=== PATIENT | male | born 1945 | race Hispanic/Latino ===

== ENCOUNTER 2017-02-13 17:09 | Inpatient (IN) | payer MEDICARE, BC ==
[2017-02-13 17:49] VITALS: BMI 39.4
[2017-02-13] MEDS ORDERED: Oxycodone/Acetaminophen 5/325 mg Tab PO PRN ×2 (22:15→22:16)
--- NOTE | 2017-02-13 22:43 | CP.PCM.HP ---
History of Present Illness - History of Present Illness History of Present Illness: Chief complaint: s/p abdominal surgery here for rehabilitation HPI: 71 years old male sent from here at the [facility] for Rehabilitation and continued treatment. he was initially dx with colon cancer and underwent partial Colectomy with colostomy in September 2016. he returned to [facility] for an elective colostomy reversal 01/30/17, surgeon Dr Martinez. LLQ abscess noted on CT Abd/Pelvis on 02/01. Exploratory lap, wash out and drainage of abscess done on 02/03. On 02/06 Some more Pelvic abscess wash out and surgery done. On 02/09 exploratory Lap with wash out and abdominal closure. patient is now here at [facility] for rehabilitation. He refers that the pain is relieved with the analgesics, but he feels very weak and cannot walk. PMH: Colon cancer; HTN; DM II; CAD: [place]; HLD; PSH: Partial colectomy; Colostomy; appendectomy, Lipoma excision Surgery time Line: 01/30 Ex -lap, take-down of splenic flexure, lysis of adhesions, partial colectomy, colostomy reversal. repair SB serosal tear x2,diverting loop colostomy, audrey of thrombosed hemorrhoid. 02/01 CT A/P LLQ abscess 02/01 IR 500cc purulent drained, drain left ; VAC placed 02/03 Ex Lap, washout and drainage, SBR, takedown of colorectal anastomosis with resection, TAC(left in discontinuity at distal ilium and rectum) 02/06 w/o, loop colosstomy takedown, splenic flexure takedown, splenic injury repair, SB anastomosis, pelvic abscess washout, colon resection,appendectomy, rectal stump repair, end colostomy, TAC 02/09 ex lap, washout, abd colosure c retention sutures 02/10 estubated. SH: No illegal drug use; No alcohol; Live with FH; Brother of heart attack at 59 Allergies: NKDA Present on Admission - Present on Admission Any Indicators Present on Admission: No History of DVT/PE: No History of Uncontrolled Diabetes: No Urinary Catheter: No Decubitus Ulcer Present: No Review of Systems - Constitutional Constitutional: Weakness. absent: Anorexia, Chills, Fatigue, Fever, Headache - EENT Eyes: Requires Corrective Lenses. absent: Diplopia, Floaters, Photophobia, Sees Flashes Ears: absent: Decreased Hearing, Ear Discharge, Tinnitus Nose/Mouth/Throat: absent: Epistaxis, Nasal Congestion, Nasal Discharge, Sinus Pain, Sinus Pressure - Cardiovascular Cardiovascular: Leg Edema. absent: Chest Pain, Dyspnea - Respiratory Respiratory: absent: Cough, Dyspnea, Wheezing - Gastrointestinal Gastrointestinal: absent: Abdominal Pain, Nausea, Vomiting Additional comments: Colostomy - Genitourinary Genitourinary: absent: Dysuria, Flank Pain, Hematuria, Urinary Frequency - Musculoskeletal Musculoskeletal: Muscle Weakness - Integumentary Integumentary: absent: Pruritus, Rash, Skin Ulcer, Sores - Neurological Neurological: Weakness. absent: Confusion, Dizziness, Focal Weakness, Paresthesias, Vertigo - Psychiatric Psychiatric: absent: Anxiety, Depression, Panic Attacks - Endocrine Endocrine: absent: Palpitations, Polydipsia, Polyphagia, Polyuria - Hematologic/Lymphatic Hematologic: absent: Easy Bleeding, Easy Bruising Meds Allergies/Adverse Reactions: Allergies Allergy/AdvReac Type Severity Reaction Status Date / Time No Known Allergies Allergy Verified 02/13/17 17:33 Physical Exam - Constitutional Appears: No Acute Distress - Head Exam Head Exam: ATRAUMATIC, NORMAL INSPECTION, NORMOCEPHALIC - Eye Exam Eye Exam: EOMI, Normal appearance Pupil Exam: NORMAL ACCOMODATION, PERRL - ENT Exam ENT Exam: Mucous Membranes Moist, Normal Exam, Normal External Ear Exam, Normal Oropharynx - Neck Exam Neck exam: Positive for: Full Rom, Normal Inspection. Negative for: Lymphadenopathy, Tenderness - Respiratory Exam Respiratory Exam: Clear to Auscultation Bilateral. absent: Rales, Rhonchi, Wheezes - Cardiovascular Exam Cardiovascular Exam: REGULAR RHYTHM, RRR, +S1, +S2. absent: Gallop, JVD - GI/Abdominal Exam Additional comments: Flat with Post surgical dressing at midline from epigastrium to pelvic region.+ vwe gavino sounds, post surgical tenderness, No erythema seen, minimal drainage from wound on dressing. - Rectal Exam Rectal Exam: Deferred - Extremities Exam Extremities exam: Negative for: calf tenderness Additional comments: 1+ edema at the left lower extremity and trace at the right lower extremity - Back Exam Back exam: NORMAL INSPECTION. absent: CVA tenderness (L), CVA tenderness (R) - Neurological Exam Neurological exam: Alert, CN II-XII Intact, Oriented x3, Reflexes Normal - Psychiatric Exam Psychiatric exam: Normal Affect, Normal Mood - Skin Skin Exam: Dry, Intact, Normal Color, Warm Results - Labs Labs: PND Assessment & Plan - Assessment and Plan (Free Text) Assessment: # Colon Cancer s/p partial colectomy and colostomy then colostomy reversal and diverting loop colostomy #. DM II #. CAD: #. HTN #. [place] Plan: 71 years old male sent from here at the [facility] unit for Rehabilitation and continued treatment. he was initially dx with colon cancer and underwent partial Colectomy with colostomy in September 2016. He returned to [facility] for an elective colostomy reversal 01/30/17, where because of LLQ abscess formation, the surgical intervention was prolonged by multiple Lap washouts and resections. He is now here for Rehabilitation. # Colon Cancer s/p partial colectomy and colostomy then colostomy reversal and diverting loop colostomy - Continue Daily dressing of surgical wound - Pain management with Percocet - Follow CBC - Surgical follow up in one week #. Post surgical Debility - Consult Dr Julio Cardiology Coordinator - OT/PT #. DM II - Diabetic diet - levemir - aspart insulin sliding scale according to accucheck - follow BMP #. CAD - lipitor - ASA in 3 weeks #. HTN - Metoprolol/lisinopril #. [place] - CPAP at nights - patient could use his own CPAP machine #. DVT prophylaxis with lovenox #. Code Status Full - Date & Time Date: 02/13/17 Time: 22:43
[2017-02-14] MEDS: Latanoprost 0.005% Opht SOUTION OU SCH ×2 (00:27→22:31)
[2017-02-14] MEDS: Insulin Lispro (humaLOG) 100 Units/ml Inj SC SCH ×5 (00:42→22:30)
[2017-02-14 08:48] LABS: BASO # 0.1 K/uL (0.0-0.2); BASO % 0.5 % (0.0-2.0); EOS # 0.1 K/uL (0.0-0.7); EOS % 0.9 % (0.0-4.0); HEMOGLOBIN 8.7 g/dL (12.0-18.0); LYMPH # 1.5 K/uL (1.0-4.3); LYMPH % 14.9 % (20.0-40.0); MEAN CORPUSCULAR HEMOGLOBIN 24.8 pg (27.0-31.0); MEAN CORPUSCULAR HGB CONC 32.6 g/dL (33.0-37.0); MEAN PLATELET VOLUME 9.2 fl (7.2-11.7); MONO # 0.7 K/uL (0.0-0.8); MONO % 6.5 % (0.0-10.0); NEUT # 7.8 K/uL (1.8-7.0); NEUT % 77.2 % (50.0-75.0); NRBC % 0.1 % (0.0-0.0); RBC 3.52 Mil/uL (4.40-5.90); RED CELL DISTRIBUTION WIDTH 16.7 % (11.5-14.5); WHITE BLOOD COUNT 10.2 K/uL (4.8-10.8)
[2017-02-14 08:52] LABS: ALB/GLOB RATIO 0.8 (1.0-2.1); ALBUMIN 2.5 g/dL (3.5-5.0); ALT/SGPT 50 U/L (21-72); AST/SGOT 58 U/L (17-59); BLOOD UREA NITROGEN 13 mg/dl (9-20); CALCIUM 8.8 mg/dL (8.4-10.2); GFR AFRICAN-AMERICAN > 60; GFR NON-AFRICAN AMERICAN > 60
[2017-02-14 09:02] LABS: INR 1.2 (0.9-1.2); PARTIAL THROMBOPLASTIN TIME 24.5 Seconds (25.6-37.1); PROTHROMBIN TIME 13.4 Seconds (9.8-13.1)
--- NOTE | 2017-02-14 12:02 | PSY.TMCNF ---
Nursing - Vital Signs Vital Signs (Last 8 hours): Vital Signs 02/14/17 02/14/17 02/14/17 08:08 08:40 08:41 Temperature 98.4 F Pulse Rate 22 L 67 Respiratory 67 H Rate Blood Pressure 154/64 H 154/64 H 154/64 H O2 Sat by Pulse 95 Oximetry 02/14/17 09:09 Temperature 98.4 F Pulse Rate 67 Respiratory 67 H Rate Blood Pressure 154/64 H O2 Sat by Pulse Oximetry Pain: 0 - Precautions: Precautions: Fall Prevention, Pressure Ulcer - Medications/Other Issues Comment: - Gets anxious at times - Consults Comment: Dr. GARCIA - Skin Incision Site: Mid Abdomen Dressing Status: Clean, Dry, Intact Incision: Magda Intact, Sutures Intact, Dehiscence, Draining Incision Line Treatment: Abdominal I/L with retention sutures. Cleansed with NSS , packed with Iodoform Gauze, covered with DSD - Wound Right Medial Ear Wound Type: Other Wound Stage: Suspected Deep Tissue Injury Wound Shape: Irregular Wound Edges: Attached Tunneling: No Undermining: No Wound Bed Greatest Portion: Black (Eschar) Wound Bed Lesser Portion: Black (Eschar) Periwound: Intact Wound Drainage Amount: None Wound Drainage Odor: None/Absent Wound General Appearance: Open to air, Clean/Dry Wound Dressing Status: Open to air Dressing Changed: No - Toileting Toileting: Dependent - Bladder Management Bladder Pattern: Normal Voiding Method: Urinal Bladder Management: Supervision - Bowel Management Bowel Pattern: Fecal Management System Comment: (+) Colostomy on LLQ, draining loose, watery brown stool Bowel Management: Dependent Frequency of Accidents: 0 - Transfers Transfers: Dependent - ADL's ADL's: Dependent - Pain Management Comments: Percocet PRN - Patient/Family Teaching Comments: Care post surgery, infection control, handwashing, rehab routines and safety precautions - Goals/Time Frame Comments: Per multidisciplinary care plan and goals Physical Therapy - Bed Mobility Bed Mobility: Moderate Assistance - Ambulation Level of Assistance: Moderate Assistance Distance (ft.): 8 - Stair Negotiation Stairs: Level of Assistance: Not Tested - Provider Therapist: Herbert License Number: [id number] Occupational Therapy - Arousal/Attention/Orientation Patient Orientation: Person, Place, Time, Appropriate to Age, Appropriate to Situation Nutrition - Current Diet Current Diet/ Supplement/ Feedings: Moderate consistent CHO 2 gram Na diet - Appetite Percent Meal Consumed: 50-74% - Comments Comments: Care post surgery, infection control, handwashing, rehab routines and safety precautions - Assessment/Goals/Time Frame Assessment/Goals/Time Frame: - Gets anxious at times - Provider Provider: Yesy Peres RD Case Management - Discharge Plan Discharge Plan: Home with significant other/family Rehabilitation Plan - Treatment Plan Treatment Plan: Physical Therapy, Occupational Therapy, Speech, Dietary, Pain Management, Wound Care, Patient/Family Education - Discharge Plan Discharge to: Home
--- NOTE | 2017-02-14 12:04 | CP.PCM.PN ---
Subjective - Date & Time of Evaluation Date of Evaluation: 02/14/17 Time of Evaluation: 12:03 - Subjective Subjective: debility s/p multiple surgeries Objective - Vital Signs/Intake and Output Vital Signs (last 24 hours): Temp Pulse Resp BP Pulse Ox 98.4 F 67 67 H 154/64 H 95 02/14/17 09:09 02/14/17 09:09 02/14/17 09:09 02/14/17 09:09 02/14/17 08:08 - Medications Medications: Current Medications Atorvastatin Calcium (Lipitor) 20 mg PO HS [facility] Last Admin: 02/14/17 00:29 Dose: 20 mg Docusate Sodium (Colace) 100 mg PO BID [facility] Last Admin: 02/14/17 08:40 Dose: 100 mg Enoxaparin Sodium (Lovenox) 40 mg SC DAILY [facility] PRN Reason: Protocol Famotidine (Pepcid) 20 mg PO BID [facility] Last Admin: 02/14/17 08:42 Dose: 20 mg Insulin Detemir (Levemir) 16 units SC [facility] Insulin Human Lispro (Humalog) 0 units SC [facility] PRN Reason: Protocol Last Admin: 02/14/17 07:11 Dose: Not Given Latanoprost (Xalatan Opht) 1 drop OU [facility] Last Admin: 02/14/17 00:27 Dose: 1 drop Lisinopril (Zestril) 20 mg PO DAILY [facility] Last Admin: 02/14/17 08:41 Dose: 20 mg Metoprolol Tartrate (Lopressor) 25 mg PO Q12 [facility] Last Admin: 02/14/17 08:40 Dose: 25 mg Ondansetron HCl (Zofran Tab) 4 mg PO Q4 PRN PRN Reason: Nausea/Vomiting Oxycodone/Acetaminophen (Percocet 5/325 Mg Tab) 2 tab PO Q4 PRN PRN Reason: Pain, severe (8-10) Stop: 02/16/17 22:16 Oxycodone/Acetaminophen (Percocet 5/325 Mg Tab) 1 tab PO Q4 PRN PRN Reason: Pain, moderate (4-7) Stop: 02/16/17 22:17 Risperidone (Risperdal Tab) 0.5 mg PO Q12 [facility] Last Admin: 02/14/17 08:42 Dose: 0.5 mg Trazodone HCl (Desyrel) 50 mg PO HS PRN PRN Reason: Insomnia - Labs Labs: 02/14/17 07:40 02/14/17 07:40 PT 13.4 Seconds (9.8-13.1) H 02/14/17 07:40 INR 1.2 (0.9-1.2) 02/14/17 07:40 APTT 24.5 Seconds (25.6-37.1) L 02/14/17 07:40 Physiatry Overall Plan of Care - Overall Plan of Care Estimated Length of Stay in Weeks: 3 Rehab Impairment: Mobility, Gait, Cognition, Speech, Balance, Coordination Etiologic Diagnosis: Other (debility) Rehab/Medical Prognosis: Fair - Anticipated Interventions Physical Therapy:: Yes Occupational Therapy:: Yes Speech Therapy:: Yes Recreational Therapy:: Yes - Therapy Goals Bed Mobility: Contact Guard Ambulation: Contact Guard Functional Positional Changes:: Contact Guard - Discharge Plan Identification of Barriers to Discharge: Home Situation Discharge Destination: Home
[2017-02-14] MEDS: Enoxaparin 40 mg Syringe SC SCH (12:42)
[2017-02-14] MEDS ORDERED: Potassium Chloride 20 mEq/15 ml LIQ UD PO ONE (17:10)
--- NOTE | 2017-02-14 17:12 | CP.PCM.PN ---
Subjective - Date & Time of Evaluation Date of Evaluation: 02/14/17 Time of Evaluation: 16:30 - Subjective Subjective: Patient seen and evaluated bedside. Feeling weak and tired. Denies any abdominal pain. Tolerating Po intake but poor . Able to consume 50 5 of his tray Hemodynamically stable, aferile No acute issues overnight Surgical incision intact , healing well colostomy bag intact Objective - Vital Signs/Intake and Output Vital Signs (last 24 hours): Temp Pulse Resp BP Pulse Ox 98.4 F 67 67 H 154/64 H 95 02/14/17 09:09 02/14/17 09:09 02/14/17 09:09 02/14/17 09:09 02/14/17 08:08 - Medications Medications: Current Medications Atorvastatin Calcium (Lipitor) 20 mg PO HS [facility] Last Admin: 02/14/17 00:29 Dose: 20 mg Docusate Sodium (Colace) 100 mg PO BID [facility] Last Admin: 02/14/17 16:33 Dose: 100 mg Enoxaparin Sodium (Lovenox) 40 mg SC DAILY [facility] PRN Reason: Protocol Last Admin: 02/14/17 12:42 Dose: 40 mg Famotidine (Pepcid) 20 mg PO BID [facility] Last Admin: 02/14/17 16:33 Dose: 20 mg Ferrous Sulfate (Feosol) 325 mg PO BID [facility] Last Admin: 02/14/17 16:31 Dose: 325 mg Insulin Detemir (Levemir) 16 units SC [facility] Insulin Human Lispro (Humalog) 0 units SC [facility] PRN Reason: Protocol Last Admin: 02/14/17 16:32 Dose: 1 unit Latanoprost (Xalatan Opht) 1 drop OU HS [facility] Last Admin: 02/14/17 00:27 Dose: 1 drop Lisinopril (Zestril) 20 mg PO DAILY [facility] Last Admin: 02/14/17 08:41 Dose: 20 mg Metoprolol Tartrate (Lopressor) 25 mg PO Q12 [facility] Last Admin: 02/14/17 08:40 Dose: 25 mg Ondansetron HCl (Zofran Tab) 4 mg PO Q4 PRN PRN Reason: Nausea/Vomiting Oxycodone/Acetaminophen (Percocet 5/325 Mg Tab) 2 tab PO Q4 PRN PRN Reason: Pain, severe (8-10) Stop: 02/16/17 22:16 Oxycodone/Acetaminophen (Percocet 5/325 Mg Tab) 1 tab PO Q4 PRN PRN Reason: Pain, moderate (4-7) Stop: 02/16/17 22:17 Potassium Chloride (Potassium Chloride Oral Soln) 20 meq PO ONCE ONE Stop: 02/14/17 17:11 Risperidone (Risperdal Tab) 0.5 mg PO Q12 [facility] Last Admin: 02/14/17 08:42 Dose: 0.5 mg Trazodone HCl (Desyrel) 50 mg PO HS PRN PRN Reason: Insomnia - Labs Labs: 02/14/17 07:40 02/14/17 07:40 PT 13.4 Seconds (9.8-13.1) H 02/14/17 07:40 INR 1.2 (0.9-1.2) 02/14/17 07:40 APTT 24.5 Seconds (25.6-37.1) L 02/14/17 07:40 - Constitutional Appears: Non-toxic, No Acute Distress - Head Exam Head Exam: ATRAUMATIC, NORMAL INSPECTION, NORMOCEPHALIC - Eye Exam Eye Exam: EOMI, Normal appearance, PERRL Pupil Exam: NORMAL ACCOMODATION - ENT Exam ENT Exam: Mucous Membranes Moist, Normal Exam - Neck Exam Neck Exam: Full ROM, Normal Inspection - Respiratory Exam Respiratory Exam: Clear to Ausculation Bilateral, NORMAL BREATHING PATTERN. absent: Rales, Rhonchi, Wheezes - Cardiovascular Exam Cardiovascular Exam: REGULAR RHYTHM, RRR, +S1, +S2. absent: JVD - GI/Abdominal Exam GI & Abdominal Exam: Soft, Normal Bowel Sounds. absent: Distended, Guarding, Tenderness, Rebound Additional comments: LLQ colostomy bag with brownish liquid output Midline surgical incision intact, healing well - Rectal Exam Rectal Exam: Deferred - Extremities Exam Extremities Exam: Normal Capillary Refill, Normal Inspection. absent: Calf Tenderness, Pedal Edema - Back Exam Back Exam: NORMAL INSPECTION - Neurological Exam Neurological Exam: Alert, Awake, CN II-XII Intact, Oriented x3 - Psychiatric Exam Psychiatric exam: Normal Affect, Normal Mood - Skin Skin Exam: Dry, Pallor, Warm Assessment and Plan - Assessment and Plan (Free Text) Assessment: 71 years old male sent from [facility] here at the [facility] for Rehabilitation and continued treatment. He was initially dx with colon cancer and underwent partial Colectomy with colostomy in September 2016. He returned to [facility] for an elective colostomy reversal 01/30/17, where because of LLQ abscess formation, the surgical intervention was prolonged by multiple Lap washouts and resections. He is now here for Rehabilitation.Feeling weak . 1. Generalized weakness Continue Physical therapy dietitian consult Add prostat supplements Physiatry consult 2. Colon Cancer s/p partial colectomy and colostomy then colostomy reversal and diverting loop colostomy Continue Daily dressing of surgical wound Pain management with Percocet Surgical follow up in one week 3. DM II Diabetic diet levemir aspart insulin sliding scale according to accucheck 4. CAD on lipitor ASA in 3 weeks 5. HTN controlled Metoprolol/lisinopril 6. [place] CPAP at nights patient could use his own CPAP machine 7. Anemia acute blood loss anemia on chronic anemia Hgb 8.7 Continue monitoring Ferrous sulfate 8.Hypokalemia replace with KCl 9.DVT prophylaxis lovenox
--- NOTE | 2017-02-14 18:00 | CP.PCM.CON ---
History of Present Illness - History of Present Illness History of Present Illness: Dr Julio PMR consultation on Toney Eastman, born 1945, who has been admitted to [facility] for acute inpatient rehabilitation following an admission at [facility] which was initially for an elective colostomy reversal on 01/30/17 but diagnosed with a pelvic abscess and had complications necessitating further surgeries and diverting loop colostomy. There are still abdominal retention sutures in place with joey as well and incomplete approximation of wound Review of Systems - Constitutional Constitutional: Weakness. absent: Anorexia, Chills - EENT Eyes: absent: Blurred Vision Ears: absent: Decreased Hearing Nose/Mouth/Throat: absent: Nasal Congestion - Cardiovascular Cardiovascular: absent: Chest Pain - Respiratory Respiratory: Dyspnea on Exertion. absent: Cough - Gastrointestinal Gastrointestinal: absent: Abdominal Pain - Musculoskeletal Musculoskeletal: Muscle Weakness - Integumentary Integumentary: absent: Unusual Bruising - Neurological Neurological: absent: Abnormal Movements Past Patient History - Past Medical History & Family History Past Medical History?: Yes - Past Social History Smoking Status: Former Smoker Home Situation {Lives}: With Family - CARDIAC Hx Cardiac Disorders: Yes Hx Hypertension: Yes - PULMONARY Hx Respiratory Disorders: Yes Hx Sleep Apnea: Yes Other/Comment: Respiratory Failure requring intubation - NEUROLOGICAL Hx Neurological Disorder: No - HEENT Hx Glaucoma: Yes Other/Comment: uses eyeglasses for reading - RENAL Other/Comment: Hx FLORENCIA - ENDOCRINE/METABOLIC Hx Diabetes Mellitus Type 2: Yes - HEMATOLOGICAL/ONCOLOGICAL Hx AIDS: No Hx Anemia: Yes Hx Cancer: Yes (Colon Cancer) Hx Human Immunodeficiency Virus (HIV): No - INTEGUMENTARY Hx Dermatological Problems: No - MUSCULOSKELETAL/RHEUMATOLOGICAL Hx Falls: No Other/Comment: with shuffling gait - GASTROINTESTINAL Hx Gastrointestinal Disorders: Yes Hx Bowel Surgery: Yes (s/p Partial colectomy) Hx Colostomy: Yes - GENITOURINARY/GYNECOLOGICAL Hx Genitourinary Disorders: No - PSYCHIATRIC Hx Substance Use: No - SURGICAL HISTORY Hx Surgeries: Yes Other/Comment: 01/30/17: Ex-Lap: take down of splenic flexure, lysis. of adhesions, partial colectomy, colostomy. reversal failed, colostomy, audrey of. thrombosed hemorrhoid. 02/03/17: Ex-Lap: washout & drainage, SBR, take. down of colorectal anastomosis with. resection, TAC (left in discontinuity @. distal ileum and rectum. 02/06/17: Ex-Lap: washout, loop colostomy. takedown , splenic injury repair, SB anas-. tomosis, pelvic abscess washout, colon. resection, appendectomy, rectal stump. repair, end colostomy, TAC. 02/09/17: Ex-Lap: washout, abd closure with. retention sutures. (02/10/17: Extubated) . (02/13/17: Right Jugular TLC D/C) - ANESTHESIA Hx Anesthesia: Yes Hx Anesthesia Reactions: Yes (Post-op Delirium) Hx Malignant Hyperthermia: No Has any member of the family had a problem w/ anesthesia?: No Meds Allergies/Adverse Reactions: Allergies Allergy/AdvReac Type Severity Reaction Status Date / Time No Known Allergies Allergy Verified 02/13/17 17:33 - Medications Medications: Current Medications Atorvastatin Calcium (Lipitor) 20 mg PO HS [facility] Last Admin: 02/14/17 00:29 Dose: 20 mg Docusate Sodium (Colace) 100 mg PO BID [facility] Last Admin: 02/14/17 16:33 Dose: 100 mg Enoxaparin Sodium (Lovenox) 40 mg SC DAILY [facility] PRN Reason: Protocol Last Admin: 02/14/17 12:42 Dose: 40 mg Famotidine (Pepcid) 20 mg PO BID [facility] Last Admin: 02/14/17 16:33 Dose: 20 mg Ferrous Sulfate (Feosol) 325 mg PO BID [facility] Last Admin: 02/14/17 16:31 Dose: 325 mg Insulin Detemir (Levemir) 16 units SC [facility] Insulin Human Lispro (Humalog) 0 units SC [facility] PRN Reason: Protocol Last Admin: 02/14/17 16:32 Dose: 1 unit Latanoprost (Xalatan Opht) 1 drop OU HS [facility] Last Admin: 02/14/17 00:27 Dose: 1 drop Lisinopril (Zestril) 20 mg PO DAILY [facility] Last Admin: 02/14/17 08:41 Dose: 20 mg Metoprolol Tartrate (Lopressor) 25 mg PO Q12 [facility] Last Admin: 02/14/17 08:40 Dose: 25 mg Ondansetron HCl (Zofran Tab) 4 mg PO Q4 PRN PRN Reason: Nausea/Vomiting Oxycodone/Acetaminophen (Percocet 5/325 Mg Tab) 2 tab PO Q4 PRN PRN Reason: Pain, severe (8-10) Stop: 02/16/17 22:16 Oxycodone/Acetaminophen (Percocet 5/325 Mg Tab) 1 tab PO Q4 PRN PRN Reason: Pain, moderate (4-7) Stop: 02/16/17 22:17 Risperidone (Risperdal Tab) 0.5 mg PO Q12 [facility] Last Admin: 02/14/17 08:42 Dose: 0.5 mg Trazodone HCl (Desyrel) 50 mg PO HS PRN PRN Reason: Insomnia Physical Exam - Constitutional Appears: Non-toxic, Other (weak and pale) - Head Exam Head Exam: ATRAUMATIC, NORMAL INSPECTION, NORMOCEPHALIC - Eye Exam Eye Exam: EOMI - ENT Exam ENT Exam: Mucous Membranes Moist - Respiratory Exam Respiratory Exam: NORMAL BREATHING PATTERN - Cardiovascular Exam Cardiovascular Exam: REGULAR RHYTHM - GI/Abdominal Exam GI & Abdominal Exam: Soft (There are retention sutures and joey with incomplete approximation of the incision, packed with iodophore) - Extremities Exam Extremities exam: Positive for: pedal edema. Negative for: calf tenderness - Neurological Exam Neurological exam: Alert, CN II-XII Intact, Oriented x3 - Psychiatric Exam Psychiatric exam: Normal Affect, Normal Mood - Skin Skin Exam: Warm Results - Vital Signs Recent Vital Signs: Last Vital Signs Temp 98.4 F 02/14/17 09:09 Pulse 67 02/14/17 09:09 Resp 67 H 02/14/17 09:09 BP 154/64 H 02/14/17 09:09 Pulse Ox 95 02/14/17 08:08 - Labs Result Diagrams: 02/14/17 07:40 02/14/17 07:40 Labs: Laboratory Results - last 24 hr 02/14/17 02/14/17 02/14/17 07:40 07:40 07:40 WBC 10.2 RBC 3.52 L Hgb 8.7 L Hct 26.8 L MCV 76.0 L MCH 24.8 L MCHC 32.6 L RDW 16.7 H Plt Count 236 MPV 9.2 Neut % (Auto) 77.2 H Lymph % (Auto) 14.9 L Storey % (Auto) 6.5 Eos % (Auto) 0.9 Baso % (Auto) 0.5 Neut # 7.8 H Lymph # 1.5 Storey # 0.7 Eos # 0.1 Baso # 0.1 PT 13.4 H INR 1.2 APTT 24.5 L Sodium 146 Potassium 3.3 L Chloride 114 H Carbon Dioxide 26 Anion Gap 9 L BUN 13 Creatinine 0.7 L Est GFR ( Amer) > 60 Est GFR (Non-Af Amer) > 60 Random Glucose 111 H Calcium 8.8 Total Bilirubin 0.6 AST 58 ALT 50 Alkaline Phosphatase 76 Total Protein 5.8 L Albumin 2.5 L Globulin 3.3 Albumin/Globulin Ratio 0.8 L Assessment & Plan - Assessment and Plan (Free Text) Assessment: PT/OT to continue to help increase functional independence Team conference for d/c planning Pain: controlled Vascular: no evidence of DVT GI: No evidence of constipation or diarrhea, has colostomy. Will continue with current wound care for now, but will look to change to a AG2+ hydrogel in the future Patient is an excellent acute rehabilitation candidate and will have focused pain management, wound care, PT, OT and recreational therapy to help facilitate a safe and appropriate d/c plan impairment code: 16
[2017-02-14] MEDS: Insulin Detemir 100 Units/ml Inj SC SCH (22:30)
[2017-02-15] MEDS: Insulin Lispro (humaLOG) 100 Units/ml Inj SC SCH ×4 (07:00→21:21)
--- NOTE | 2017-02-15 08:42 | CP.PCM.CON ---
History of Present Illness - History of Present Illness History of Present Illness: Psychiatry Consult Note Chief complaint: "I'm feeling down" HPI: 71 years old male sent from [facility] here at the [facility] for Rehabilitation and continued treatment s/p initial dx of colon cancer and partial Colectomy with colostomy in September 2016; elective colostomy reversal 01/30/17,; Exploratory lap, wash out and drainage of abscess done on 02/03; 02/06 Some more Pelvic abscess wash out and surgery done; 02/09 exploratory Lap with wash out and abdominal closure. Patient reports that he feels depressed due to his many surgeries, colostomy bag and current difficulties with rehabilitation. He reports that he is hopeful for the future. No SI/HI/hallucinations/paranoia. He is not interested in medications for depression at this time because he is hopeful that with improved health, his mood will also improve. He reports poor sleep but states that it may also be due to the hospital environment. Patient was not aware that he was on Risperdal and does not know why the medication was prescribed. PPHx: Denies past psychiatric history PMH: Colon cancer; HTN; DM II; CAD: [place]; HLD; PSH: Partial colectomy; Colostomy; appendectomy, Lipoma excision Surgery time Line: 01/30 Ex -lap, take-down of splenic flexure, lysis of adhesions, partial colectomy, colostomy reversal. repair SB serosal tear x2,diverting loop colostomy, audrey of thrombosed hemorrhoid. 02/01 CT A/P LLQ abscess 02/01 IR 500cc purulent drained, drain left ; VAC placed 02/03 Ex Lap, washout and drainage, SBR, takedown of colorectal anastomosis with resection, TAC(left in discontinuity at distal ilium and rectum) 02/06 w/o, loop colosstomy takedown, splenic flexure takedown, splenic injury repair, SB anastomosis, pelvic abscess washout, colon resection,appendectomy, rectal stump repair, end colostomy, TAC 02/09 ex lap, washout, abd colosure c retention sutures 02/10 extubated. SH: No illegal drug use; No alcohol; Live with ; No children; Retired teacher; No cigarettes FH; Brother of heart attack at 61 Allergies: NKDA MSE: A + O x 3, Calm, cooperative, no acute distress, mood "depressed", affect- constricted, thought process-linear/coherent, thought content- no delusions, no hallucinations, no suicidal/homicidal ideation, good insight/judgment, speech normal, good impulse control Impression: 71 years old male sent from [facility] here at the [facility] for Rehabilitation and continued treatment s/p initial dx of colon cancer and multiple abdominal surgeries, likely has Adjustment Disorder w/ Depressed Mood. Recommendations: -Stop Risperdal, no apparent indication for it at this time -Patient not agreeable to antidepressants and they are not indicated at this time -Supportive therapy -Can continue Trazodone 50 mg PO HS PRN insomnia -No acute inpatient psychiatric admission indicated at this time -Reconsult w/ further questions, Dr. Patino [phone] Past Patient History - Past Medical History & Family History Past Medical History?: Yes - Past Social History Smoking Status: Former Smoker Home Situation {Lives}: With Family - CARDIAC Hx Cardiac Disorders: Yes Hx Hypertension: Yes - PULMONARY Hx Respiratory Disorders: Yes Hx Sleep Apnea: Yes Other/Comment: Respiratory Failure requring intubation - NEUROLOGICAL Hx Neurological Disorder: No - HEENT Hx Glaucoma: Yes Other/Comment: uses eyeglasses for reading - RENAL Other/Comment: Hx FLORENCIA - ENDOCRINE/METABOLIC Hx Diabetes Mellitus Type 2: Yes - HEMATOLOGICAL/ONCOLOGICAL Hx AIDS: No Hx Anemia: Yes Hx Cancer: Yes (Colon Cancer) Hx Human Immunodeficiency Virus (HIV): No - INTEGUMENTARY Hx Dermatological Problems: No - MUSCULOSKELETAL/RHEUMATOLOGICAL Hx Falls: No Other/Comment: with shuffling gait - GASTROINTESTINAL Hx Gastrointestinal Disorders: Yes Hx Bowel Surgery: Yes (s/p Partial colectomy) Hx Colostomy: Yes - GENITOURINARY/GYNECOLOGICAL Hx Genitourinary Disorders: No - PSYCHIATRIC Hx Substance Use: No - SURGICAL HISTORY Hx Surgeries: Yes Other/Comment: 01/30/17: Ex-Lap: take down of splenic flexure, lysis. of adhesions, partial colectomy, colostomy. reversal failed, colostomy, audrey of. thrombosed hemorrhoid. 02/03/17: Ex-Lap: washout & drainage, SBR, take. down of colorectal anastomosis with. resection, TAC (left in discontinuity @. distal ileum and rectum. 02/06/17: Ex-Lap: washout, loop colostomy. takedown , splenic injury repair, SB anas-. tomosis, pelvic abscess washout, colon. resection, appendectomy, rectal stump. repair, end colostomy, TAC. 02/09/17: Ex-Lap: washout, abd closure with. retention sutures. (02/10/17: Extubated) . (02/13/17: Right Jugular TLC D/C) - ANESTHESIA Hx Anesthesia: Yes Hx Anesthesia Reactions: Yes (Post-op Delirium) Hx Malignant Hyperthermia: No Has any member of the family had a problem w/ anesthesia?: No Meds Allergies/Adverse Reactions: Allergies Allergy/AdvReac Type Severity Reaction Status Date / Time No Known Allergies Allergy Verified 02/13/17 17:33 - Medications Medications: Current Medications Atorvastatin Calcium (Lipitor) 20 mg PO [facility] Last Admin: 02/14/17 22:31 Dose: 20 mg Docusate Sodium (Colace) 100 mg PO BID [facility] Last Admin: 02/14/17 16:33 Dose: 100 mg Enoxaparin Sodium (Lovenox) 40 mg SC DAILY [facility] PRN Reason: Protocol Last Admin: 02/14/17 12:42 Dose: 40 mg Famotidine (Pepcid) 20 mg PO BID [facility] Last Admin: 02/14/17 16:33 Dose: 20 mg Ferrous Sulfate (Feosol) 325 mg PO BID [facility] Last Admin: 02/14/17 16:31 Dose: 325 mg Insulin Detemir (Levemir) 16 units SC [facility] Last Admin: 02/14/17 22:30 Dose: 16 units Insulin Human Lispro (Humalog) 0 units SC [facility] PRN Reason: Protocol Last Admin: 02/15/17 07:00 Dose: Not Given Latanoprost (Xalatan Opht) 1 drop OU [facility] Last Admin: 02/14/17 22:31 Dose: 1 drop Lisinopril (Zestril) 20 mg PO DAILY [facility] Last Admin: 02/14/17 08:41 Dose: 20 mg Metoprolol Tartrate (Lopressor) 25 mg PO Q12 [facility] Last Admin: 02/14/17 20:17 Dose: 25 mg Ondansetron HCl (Zofran Tab) 4 mg PO Q4 PRN PRN Reason: Nausea/Vomiting Oxycodone/Acetaminophen (Percocet 5/325 Mg Tab) 2 tab PO Q4 PRN PRN Reason: Pain, severe (8-10) Stop: 02/16/17 22:16 Oxycodone/Acetaminophen (Percocet 5/325 Mg Tab) 1 tab PO Q4 PRN PRN Reason: Pain, moderate (4-7) Stop: 02/16/17 22:17 Trazodone HCl (Desyrel) 50 mg PO HS PRN PRN Reason: Insomnia Last Admin: 02/14/17 22:31 Dose: 50 mg Results - Vital Signs Recent Vital Signs: Last Vital Signs Temp 98.2 F 02/14/17 19:37 Pulse 72 02/14/17 20:17 Resp 20 02/14/17 19:37 BP 146/63 02/14/17 20:17 Pulse Ox 97 02/14/17 19:37 - Labs Result Diagrams: 02/14/17 07:40 02/14/17 07:40 Labs: Laboratory Results - last 24 hr 02/14/17 02/14/17 02/14/17 07:40 07:40 07:40 WBC 10.2 RBC 3.52 L Hgb 8.7 L Hct 26.8 L MCV 76.0 L MCH 24.8 L MCHC 32.6 L RDW 16.7 H Plt Count 236 MPV 9.2 Neut % (Auto) 77.2 H Lymph % (Auto) 14.9 L Nuckolls % (Auto) 6.5 Eos % (Auto) 0.9 Baso % (Auto) 0.5 Neut # 7.8 H Lymph # 1.5 Nuckolls # 0.7 Eos # 0.1 Baso # 0.1 PT 13.4 H INR 1.2 APTT 24.5 L Sodium 146 Potassium 3.3 L Chloride 114 H Carbon Dioxide 26 Anion Gap 9 L BUN 13 Creatinine 0.7 L Est GFR ( Amer) > 60 Est GFR (Non-Af Amer) > 60 Random Glucose 111 H Calcium 8.8 Total Bilirubin 0.6 AST 58 ALT 50 Alkaline Phosphatase 76 Total Protein 5.8 L Albumin 2.5 L Globulin 3.3 Albumin/Globulin Ratio 0.8 L
[2017-02-15] MEDS: Enoxaparin 40 mg Syringe SC SCH (09:06)
[2017-02-15] MEDS: Latanoprost 0.005% Opht SOUTION OU SCH (21:17)
[2017-02-15] MEDS: Insulin Detemir 100 Units/ml Inj SC SCH (21:19)
[2017-02-16] MEDS: Insulin Lispro (humaLOG) 100 Units/ml Inj SC SCH ×4 (06:55→21:24)
--- NOTE | 2017-02-16 07:58 | CP.PCM.CON ---
History of Present Illness - History of Present Illness History of Present Illness: Pt is a 71 year old male admitted to [facility] and referred to the abstract writer for evaluation. med history positive for colon surgery, multiple medical issues/infections following. Pt also reported a history of DM. See medical record for full medical history along with medications. Social History : pt lives with his of 45+ years in [place]. He has 0 children. He had a brother who . Pt reported close relationships with friends and a very positive relationship with his . 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 Psych history denied, pt denied a history of alc/sub abuse. Pt discussed the stress and strain of the last 4 months. He spoke of his active life and desire for recover. MSE: Pt alert, oriented x3, relevant/coherent, no psychosis, affect constricted , mood dysphoric, no si no hi ideation. Cognitive strategies introduced to reduce depression/distress. Dx: Adjustment Dx with Depression Plan: Continued Sup therapy 7:20-7:40 Past Patient History - Past Medical History & Family History Past Medical History?: Yes - Past Social History Smoking Status: Former Smoker Home Situation {Lives}: With Family - CARDIAC Hx Cardiac Disorders: Yes Hx Hypertension: Yes - PULMONARY Hx Respiratory Disorders: Yes Hx Sleep Apnea: Yes Other/Comment: Respiratory Failure requring intubation - NEUROLOGICAL Hx Neurological Disorder: No - HEENT Hx Glaucoma: Yes Other/Comment: uses eyeglasses for reading - RENAL Other/Comment: Hx FLORENCIA - ENDOCRINE/METABOLIC Hx Diabetes Mellitus Type 2: Yes - HEMATOLOGICAL/ONCOLOGICAL Hx Cancer: Yes - INTEGUMENTARY Hx Dermatological Problems: No - MUSCULOSKELETAL/RHEUMATOLOGICAL Hx Arthritis: Yes - GASTROINTESTINAL Hx Gastrointestinal Disorders: Yes Hx Bowel Surgery: Yes (s/p Partial colectomy) Hx Colostomy: Yes - GENITOURINARY/GYNECOLOGICAL Hx Genitourinary Disorders: No - PSYCHIATRIC Hx Substance Use: No - SURGICAL HISTORY Hx Surgeries: Yes Other/Comment: 01/30/17: Ex-Lap: take down of splenic flexure, lysis. of adhesions, partial colectomy, colostomy. reversal failed, colostomy, audrey of. thrombosed hemorrhoid. 02/03/17: Ex-Lap: washout & drainage, SBR, take. down of colorectal anastomosis with. resection, TAC (left in discontinuity @. distal ileum and rectum. 02/06/17: Ex-Lap: washout, loop colostomy. takedown , splenic injury repair, SB anas-. tomosis, pelvic abscess washout, colon. resection, appendectomy, rectal stump. repair, end colostomy, TAC. 02/09/17: Ex-Lap: washout, abd closure with. retention sutures. (02/10/17: Extubated) . (02/13/17: Right Jugular TLC D/C) - ANESTHESIA Hx Anesthesia: Yes Hx Anesthesia Reactions: Yes (Post-op Delirium) Hx Malignant Hyperthermia: No Has any member of the family had a problem w/ anesthesia?: No Meds Allergies/Adverse Reactions: Allergies Allergy/AdvReac Type Severity Reaction Status Date / Time No Known Allergies Allergy Verified 02/13/17 17:33 - Medications Medications: Current Medications Atorvastatin Calcium (Lipitor) 20 mg PO [facility] Last Admin: 02/15/17 21:16 Dose: 20 mg Docusate Sodium (Colace) 100 mg PO BID [facility] Last Admin: 02/15/17 17:14 Dose: 100 mg Enoxaparin Sodium (Lovenox) 40 mg SC DAILY [facility] PRN Reason: Protocol Last Admin: 02/15/17 09:06 Dose: 40 mg Famotidine (Pepcid) 20 mg PO BID [facility] Last Admin: 02/15/17 17:14 Dose: 20 mg Ferrous Sulfate (Feosol) 325 mg PO BID [facility] Last Admin: 02/15/17 17:14 Dose: 325 mg Insulin Detemir (Levemir) 16 units SC [facility] Last Admin: 02/15/17 21:19 Dose: 16 units Insulin Human Lispro (Humalog) 0 units SC [facility] PRN Reason: Protocol Last Admin: 02/16/17 06:55 Dose: Not Given Latanoprost (Xalatan Opht) 1 drop OU HS [facility] Last Admin: 02/15/17 21:17 Dose: 1 drop Lisinopril (Zestril) 20 mg PO DAILY [facility] Last Admin: 02/15/17 09:07 Dose: 20 mg Metoprolol Tartrate (Lopressor) 25 mg PO Q12 [facility] Last Admin: 02/15/17 21:15 Dose: 25 mg Ondansetron HCl (Zofran Tab) 4 mg PO Q4 PRN PRN Reason: Nausea/Vomiting Oxycodone/Acetaminophen (Percocet 5/325 Mg Tab) 2 tab PO Q4 PRN PRN Reason: Pain, severe (8-10) Stop: 02/16/17 22:16 Oxycodone/Acetaminophen (Percocet 5/325 Mg Tab) 1 tab PO Q4 PRN PRN Reason: Pain, moderate (4-7) Stop: 02/16/17 22:17 Trazodone HCl (Desyrel) 50 mg PO HS PRN PRN Reason: Insomnia Last Admin: 02/14/17 22:31 Dose: 50 mg Results - Vital Signs Recent Vital Signs: Last Vital Signs Temp 97.5 F L 02/16/17 07:30 Pulse 62 02/16/17 07:30 Resp 20 02/16/17 07:30 BP 138/69 02/16/17 07:30 Pulse Ox 95 02/16/17 07:30 - Labs Result Diagrams: 02/14/17 07:40 02/14/17 07:40
[2017-02-16] MEDS: Enoxaparin 40 mg Syringe SC SCH (08:50)
--- NOTE | 2017-02-16 11:26 | CP.PCM.PN ---
Subjective - Date & Time of Evaluation Date of Evaluation: 02/16/17 Time of Evaluation: 11:20 - Subjective Subjective: Pt seen and examined. Denied any complained except pain on abdomen when moving. Objective - Vital Signs/Intake and Output Vital Signs (last 24 hours): Temp Pulse Resp BP Pulse Ox 97.5 F L 62 20 138/69 95 02/16/17 07:30 02/16/17 08:49 02/16/17 07:30 02/16/17 08:49 02/16/17 07:30 - Medications Medications: Current Medications Atorvastatin Calcium (Lipitor) [address] [facility] Last Admin: 02/15/17 21:16 Dose: 20 mg Docusate Sodium (Colace) 100 mg PO BID [facility] Last Admin: 02/16/17 08:49 Dose: 100 mg Enoxaparin Sodium (Lovenox) 40 mg SC DAILY [facility] PRN Reason: Protocol Last Admin: 02/16/17 08:50 Dose: 40 mg Famotidine (Pepcid) 20 mg PO BID [facility] Last Admin: 02/16/17 08:49 Dose: 20 mg Ferrous Sulfate (Feosol) 325 mg PO BID [facility] Last Admin: 02/16/17 08:49 Dose: 325 mg Insulin Detemir (Levemir) [address] [facility] Last Admin: 02/15/17 21:19 Dose: 16 units Insulin Human Lispro (Humalog) 0 units SC [facility] PRN Reason: Protocol Last Admin: 02/16/17 06:55 Dose: Not Given Latanoprost (Xalatan Opht) [address] [facility] Last Admin: 02/15/17 21:17 Dose: 1 drop Lisinopril (Zestril) 20 mg PO DAILY [facility] Last Admin: 02/16/17 08:49 Dose: 20 mg Metoprolol Tartrate (Lopressor) 25 mg PO Q12 [facility] Last Admin: 02/16/17 08:49 Dose: 25 mg Ondansetron HCl (Zofran Tab) 4 mg PO Q4 PRN PRN Reason: Nausea/Vomiting Oxycodone/Acetaminophen (Percocet 5/325 Mg Tab) 2 tab PO Q4 PRN PRN Reason: Pain, severe (8-10) Stop: 02/16/17 22:16 Oxycodone/Acetaminophen (Percocet 5/325 Mg Tab) 1 tab PO Q4 PRN PRN Reason: Pain, moderate (4-7) Stop: 02/16/17 22:17 Trazodone HCl (Desyrel) 50 mg PO HS PRN PRN Reason: Insomnia Last Admin: 02/14/17 22:31 Dose: 50 mg - Labs Labs: 02/14/17 07:40 02/14/17 07:40 PT 13.4 Seconds (9.8-13.1) H 02/14/17 07:40 INR 1.2 (0.9-1.2) 02/14/17 07:40 APTT 24.5 Seconds (25.6-37.1) L 02/14/17 07:40 - Constitutional Appears: No Acute Distress - Head Exam Head Exam: ATRAUMATIC - Eye Exam Eye Exam: absent: Scleral icterus - ENT Exam ENT Exam: Mucous Membranes Moist - Neck Exam Neck Exam: absent: Meningismus - Respiratory Exam Respiratory Exam: absent: Rhonchi, Wheezes, Respiratory Distress - Cardiovascular Exam Cardiovascular Exam: REGULAR RHYTHM, +S1, +S2 - GI/Abdominal Exam GI & Abdominal Exam: Soft. absent: Tenderness - Rectal Exam Rectal Exam: Deferred - Neurological Exam Neurological Exam: Alert, Oriented x3 - Psychiatric Exam Psychiatric exam: Normal Affect - Skin Skin Exam: Dry, Intact Assessment and Plan - Assessment and Plan (Free Text) Assessment: 71 years old male sent from [facility] here at the [facility] for Rehabilitation and continued treatment. He was initially dx with colon cancer and underwent partial Colectomy with colostomy in September 2016. [place] [facility] [place] 01/30/17, where because of LLQ abscess formation, the surgical intervention was prolonged by multiple Lap washouts and resections. He is now here for Rehabilitation because of generalized weakness 1. Generalized weakness Continue Physical therapy dietitian consult Add prostat supplements Physiatry consult 2. Colon Cancer s/p partial colectomy and colostomy then colostomy reversal and diverting loop colostomy Continue Daily dressing of surgical wound Pain management with Percocet Surgical follow up in one week 3. DM II Diabetic diet levemir aspart insulin sliding scale according to accucheck 4. CAD on lipitor ASA in 3 weeks 5. HTN controlled Metoprolol/lisinopril 6. [place] CPAP at nights patient could use his own CPAP machine 7. Anemia acute blood loss anemia on chronic anemia Hgb 8.7 Continue monitoring Ferrous sulfate 8.Hypokalemia replace with KCl 9.DVT prophylaxis lovenox
--- NOTE | 2017-02-16 13:22 | CP.PCM.PN ---
Subjective - Date & Time of Evaluation Date of Evaluation: 02/16/17 Time of Evaluation: 13:21 - Subjective Subjective: Patient seen in room stable pain is controlled he is able to ambulate 40' with RW continue with local wound care excellent acute rehab candidate continue current care I will evaluate wound next week Objective - Vital Signs/Intake and Output Vital Signs (last 24 hours): Temp Pulse Resp BP Pulse Ox 97.5 F L 62 20 138/69 95 02/16/17 07:30 02/16/17 08:49 02/16/17 07:30 02/16/17 08:49 02/16/17 07:30 - Medications Medications: Current Medications Atorvastatin Calcium (Lipitor) 20 mg PO HS [facility] Last Admin: 02/15/17 21:16 Dose: 20 mg Docusate Sodium (Colace) 100 mg PO BID [facility] Last Admin: 02/16/17 08:49 Dose: 100 mg Enoxaparin Sodium (Lovenox) 40 mg SC DAILY [facility] PRN Reason: Protocol Last Admin: 02/16/17 08:50 Dose: 40 mg Famotidine (Pepcid) 20 mg PO BID [facility] Last Admin: 02/16/17 08:49 Dose: 20 mg Ferrous Sulfate (Feosol) 325 mg PO BID [facility] Last Admin: 02/16/17 08:49 Dose: 325 mg Insulin Detemir (Levemir) 16 units SC [facility] Last Admin: 02/15/17 21:19 Dose: 16 units Insulin Human Lispro (Humalog) 0 units SC [facility] PRN Reason: Protocol Last Admin: 02/16/17 12:38 Dose: Not Given Latanoprost (Xalatan Opht) 1 drop OU HS [facility] Last Admin: 02/15/17 21:17 Dose: 1 drop Lisinopril (Zestril) 20 mg PO DAILY [facility] Last Admin: 02/16/17 08:49 Dose: 20 mg Metoprolol Tartrate (Lopressor) 25 mg PO Q12 [facility] Last Admin: 02/16/17 08:49 Dose: 25 mg Ondansetron HCl (Zofran Tab) 4 mg PO Q4 PRN PRN Reason: Nausea/Vomiting Oxycodone/Acetaminophen (Percocet 5/325 Mg Tab) 2 tab PO Q4 PRN PRN Reason: Pain, severe (8-10) Stop: 02/16/17 22:16 Oxycodone/Acetaminophen (Percocet 5/325 Mg Tab) 1 tab PO Q4 PRN PRN Reason: Pain, moderate (4-7) Stop: 02/16/17 22:17 Trazodone HCl (Desyrel) 50 mg PO HS PRN PRN Reason: Insomnia Last Admin: 02/14/17 22:31 Dose: 50 mg - Labs Labs: 02/14/17 07:40 02/14/17 07:40 PT 13.4 Seconds (9.8-13.1) H 02/14/17 07:40 INR 1.2 (0.9-1.2) 02/14/17 07:40 APTT 24.5 Seconds (25.6-37.1) L 02/14/17 07:40
[2017-02-16] MEDS: Latanoprost 0.005% Opht SOUTION OU SCH (21:25)
[2017-02-16] MEDS: Insulin Detemir 100 Units/ml Inj SC SCH (21:25)
[2017-02-17] MEDS: Insulin Lispro (humaLOG) 100 Units/ml Inj SC SCH ×4 (07:07→21:01)
[2017-02-17 07:57] LABS: HEMOGLOBIN 7.9 g/dL (12.0-18.0); MEAN CELL VOLUME 75.3 fl (80.0-94.0); MEAN CORPUSCULAR HEMOGLOBIN 24.1 pg (27.0-31.0); MEAN CORPUSCULAR HGB CONC 32.1 g/dL (33.0-37.0); RBC 3.29 Mil/uL (4.40-5.90); RED CELL DISTRIBUTION WIDTH 16.5 % (11.5-14.5); WHITE BLOOD COUNT 9.7 K/uL (4.8-10.8)
[2017-02-17] MEDS: Enoxaparin 40 mg Syringe SC SCH (09:20)
[2017-02-17] MEDS: Latanoprost 0.005% Opht SOUTION OU SCH (21:03)
[2017-02-17] MEDS: Insulin Detemir 100 Units/ml Inj SC SCH (22:15)
[2017-02-18] MEDS: Insulin Lispro (humaLOG) 100 Units/ml Inj SC SCH ×4 (06:30→21:54)
[2017-02-18] MEDS: Enoxaparin 40 mg Syringe SC SCH (09:19)
[2017-02-18] MEDS: Latanoprost 0.005% Opht SOUTION OU SCH (21:50)
[2017-02-18] MEDS: Insulin Detemir 100 Units/ml Inj SC SCH (22:29)
[2017-02-19] MEDS: Insulin Lispro (humaLOG) 100 Units/ml Inj SC SCH ×4 (06:30→21:20)
[2017-02-19] MEDS: Enoxaparin 40 mg Syringe SC SCH (08:39)
--- NOTE | 2017-02-19 10:52 | CP.PCM.PN ---
Subjective - Date & Time of Evaluation Date of Evaluation: 02/19/17 Time of Evaluation: 10:50 - Subjective Subjective: pt doing well wtih therapy no complaints hd stable nad Objective - Vital Signs/Intake and Output Vital Signs (last 24 hours): Temp Pulse Resp BP Pulse Ox 98.0 F 68 20 95/53 L 96 02/19/17 09:20 02/19/17 09:20 02/19/17 09:20 02/19/17 09:20 02/19/17 09:20 - Medications Medications: Current Medications Atorvastatin Calcium (Lipitor) 20 mg PO HS [facility] Last Admin: 02/18/17 21:50 Dose: 20 mg Docusate Sodium (Colace) 100 mg PO BID [facility] Last Admin: 02/19/17 08:38 Dose: 100 mg Enoxaparin Sodium (Lovenox) 40 mg SC DAILY [facility] PRN Reason: Protocol Last Admin: 02/19/17 08:39 Dose: 40 mg Famotidine (Pepcid) 20 mg PO BID [facility] Last Admin: 02/19/17 08:38 Dose: 20 mg Ferrous Sulfate (Feosol) 325 mg PO BID [facility] Last Admin: 02/19/17 08:37 Dose: 325 mg Insulin Detemir (Levemir) 16 units SC [facility] Last Admin: 02/18/17 22:29 Dose: 16 units Insulin Human Lispro (Humalog) 0 units SC [facility] PRN Reason: Protocol Last Admin: 02/19/17 06:30 Dose: Not Given Latanoprost (Xalatan Opht) 1 drop OU HS [facility] Last Admin: 02/18/17 21:50 Dose: 1 drop Lisinopril (Zestril) 20 mg PO DAILY [facility] Last Admin: 02/19/17 08:40 Dose: Not Given Metoprolol Tartrate (Lopressor) 25 mg PO Q12 [facility] Last Admin: 02/19/17 08:39 Dose: Not Given Ondansetron HCl (Zofran Tab) 4 mg PO Q4 PRN PRN Reason: Nausea/Vomiting Trazodone HCl (Desyrel) 50 mg PO HS PRN PRN Reason: Insomnia Last Admin: 02/17/17 23:02 Dose: 50 mg - Labs Labs: 02/17/17 05:30 02/14/17 07:40 PT 13.4 Seconds (9.8-13.1) H 02/14/17 07:40 INR 1.2 (0.9-1.2) 02/14/17 07:40 APTT 24.5 Seconds (25.6-37.1) L 02/14/17 07:40 - Constitutional Appears: Non-toxic, No Acute Distress - Head Exam Head Exam: ATRAUMATIC, NORMOCEPHALIC - Eye Exam Eye Exam: EOMI, Normal appearance, PERRL - ENT Exam ENT Exam: Mucous Membranes Moist, Normal Oropharynx - Respiratory Exam Respiratory Exam: Clear to Ausculation Bilateral, NORMAL BREATHING PATTERN - Cardiovascular Exam Cardiovascular Exam: RRR, +S1, +S2 - GI/Abdominal Exam GI & Abdominal Exam: Soft, Normal Bowel Sounds. absent: Tenderness, Organomegaly Additional comments: ostomy - Extremities Exam Extremities Exam: Normal Capillary Refill. absent: Calf Tenderness - Back Exam Back Exam: absent: CVA tenderness (L), CVA tenderness (R) - Neurological Exam Neurological Exam: Alert, Awake - Psychiatric Exam Psychiatric exam: Normal Affect, Normal Mood - Skin Skin Exam: Dry, Warm Assessment and Plan - Assessment and Plan (Free Text) Plan: 71 years old male sent from [facility] here at the [facility] for Rehabilitation and continued treatment. He was initially dx with colon cancer and underwent partial Colectomy with colostomy in September 2016. He returned to [facility] [place] elective col[place] reversal 01/30/17, where because of LLQ abscess formation, the surgical intervention was prolonged by multiple Lap washouts and resections. He is now here for Rehabilitation because of generalized weakness 1. Generalized weakness Continue Physical therapy dietitian consult Add prostat supplements Physiatry consult 2. Colon Cancer s/p partial colectomy and colostomy then colostomy reversal and diverting loop colostomy Continue Daily dressing of surgical wound Pain management with Percocet Surgical follow up in one week 3. DM II Diabetic diet levemir aspart insulin sliding scale according to accucheck 4. CAD on lipitor ASA in 3 weeks 5. HTN controlled Metoprolol/lisinopril 6. [place] CPAP at nights patient could use his own CPAP machine 7. Anemia acute blood loss anemia on chronic anemia Hgb 8.7 Continue monitoring Ferrous sulfate 8.Hypokalemia replace with KCl 9.DVT prophylaxis lovenox
--- NOTE | 2017-02-19 17:32 | CP.PCM.PN ---
Subjective - Date & Time of Evaluation Date of Evaluation: 02/19/17 Time of Evaluation: 17:31 - Subjective Subjective: Patient seen in the room colostomy intact The abdominal incision has fully approximated now, much quicker than I had expected ambulation has improved and he remains very motivated. He is an excellent acute rehab candidate Objective - Vital Signs/Intake and Output Vital Signs (last 24 hours): Temp Pulse Resp BP Pulse Ox 98.0 F 68 20 95/53 L 96 02/19/17 09:20 02/19/17 09:20 02/19/17 09:20 02/19/17 09:20 02/19/17 09:20 - Medications Medications: Current Medications Atorvastatin Calcium (Lipitor) 20 mg PO HS [facility] Last Admin: 02/18/17 21:50 Dose: 20 mg Docusate Sodium (Colace) 100 mg PO BID [facility] Last Admin: 02/19/17 08:38 Dose: 100 mg Enoxaparin Sodium (Lovenox) 40 mg SC DAILY [facility] PRN Reason: Protocol Last Admin: 02/19/17 08:39 Dose: 40 mg Famotidine (Pepcid) 20 mg PO BID [facility] Last Admin: 02/19/17 08:38 Dose: 20 mg Ferrous Sulfate (Feosol) 325 mg PO BID [facility] Last Admin: 02/19/17 08:37 Dose: 325 mg Insulin Detemir (Levemir) 16 units SC [facility] Last Admin: 02/18/17 22:29 Dose: 16 units Insulin Human Lispro (Humalog) 0 units SC [facility] PRN Reason: Protocol Last Admin: 02/19/17 12:42 Dose: 1 unit Latanoprost (Xalatan Opht) 1 drop OU HS [facility] Last Admin: 02/18/17 21:50 Dose: 1 drop Lisinopril (Zestril) 20 mg PO DAILY [facility] Last Admin: 02/19/17 08:40 Dose: Not Given Metoprolol Tartrate (Lopressor) 25 mg PO Q12 [facility] Last Admin: 02/19/17 08:39 Dose: Not Given Ondansetron HCl (Zofran Tab) 4 mg PO Q4 PRN PRN Reason: Nausea/Vomiting Trazodone HCl (Desyrel) 50 mg PO HS PRN PRN Reason: Insomnia Last Admin: 02/17/17 23:02 Dose: 50 mg - Labs Labs: 02/17/17 05:30 02/14/17 07:40 PT 13.4 Seconds (9.8-13.1) H 02/14/17 07:40 INR 1.2 (0.9-1.2) 02/14/17 07:40 APTT 24.5 Seconds (25.6-37.1) L 02/14/17 07:40
[2017-02-19] MEDS: Insulin Detemir 100 Units/ml Inj SC SCH (21:19)
[2017-02-19] MEDS: Latanoprost 0.005% Opht SOUTION OU SCH (21:19)
[2017-02-20] MEDS: Insulin Lispro (humaLOG) 100 Units/ml Inj SC SCH ×4 (06:37→21:16)
[2017-02-20] MEDS: Enoxaparin 40 mg Syringe SC SCH (08:37)
[2017-02-20 09:31] LABS: HEMOGLOBIN 8.4 g/dL (12.0-18.0); MEAN CELL VOLUME 74.6 fl (80.0-94.0); MEAN CORPUSCULAR HEMOGLOBIN 23.4 pg (27.0-31.0); MEAN CORPUSCULAR HGB CONC 31.4 g/dL (33.0-37.0); RBC 3.57 Mil/uL (4.40-5.90); RED CELL DISTRIBUTION WIDTH 16.7 % (11.5-14.5); WHITE BLOOD COUNT 7.9 K/uL (4.8-10.8)
--- NOTE | 2017-02-20 13:05 | PSY.TMCNF ---
Nursing - Vital Signs Vital Signs (Last 8 hours): Vital Signs 02/20/17 02/20/17 02/20/17 07:32 08:37 08:40 Temperature 98.1 F Pulse Rate 59 L 68 Respiratory 20 Rate Blood Pressure 152/74 H 152/74 H 152/74 H O2 Sat by Pulse 97 Oximetry 02/20/17 09:00 Temperature 98.1 F Pulse Rate 68 Respiratory 20 Rate Blood Pressure 152/74 H O2 Sat by Pulse Oximetry Pain: 0 - Precautions: Precautions: Fall Prevention, Pressure Ulcer - Medications/Other Issues Comment: -Needs emotional support and positive reinforcement due to anxiety at times. -Still refuses to participate with Colostomy care, closes eyes and covers face during colostomy care. -Needs encouragement to increase independence with ADL's. - Consults Comment: Dr. Julio, Dr. Patino, Dr. Haro - Skin Incision Site: Mid Abdomen Dressing Status: Changed Incision: [place] Intact, Sutures Intact Incision Line Treatment: Abdominal I/L with retention sutures and joey. Cleansed with NSS, then covered with DSD - Wound Right Medial Ear Wound Type: Pressure Ulcer Wound Stage: Suspected Deep Tissue Injury Wound Shape: Irregular Wound Edges: Attached Tunneling: No Undermining: No Wound Bed Greatest Portion: Black (Eschar) Wound Bed Lesser Portion: Black (Eschar) Periwound: Intact Wound Drainage Amount: None Wound Drainage Odor: None/Absent Wound General Appearance: Open to air, Clean/Dry Wound Dressing Status: Open to air Dressing Changed: No Wound Primary Dressing Type: Open to air - Toileting Toileting: Minimal Assistance - Bladder Management Bladder Pattern: Normal Voiding Method: Urinal Bladder Management: Minimal Assistance Frequency of Accidents: 0 - Bowel Management Bowel Pattern: Fecal Management System Comment: (+) Colostomy on LLQ, draining loose, formed soft brown stool Bowel Management: Dependent Frequency of Accidents: 0 - Transfers Transfers: Minimal Assistance - ADL's ADL's: Minimal Assistance - Pain Management Comments: Haven't used any pain medication since admission, denies pain most of the time. - Patient/Family Teaching Comments: Care post abdominal surgery, infection control, safety precautions - Goals/Time Frame Comments: Per multidisciplinary care plan and goals. Physical Therapy - Bed Mobility Bed Mobility: Supervision, Verbal Cues Comment: increased time for task completion - Transfers Wheelchair to Mat: Supervision, Verbal Cues, Contact Guard Sit to Stand: Supervision, Verbal Cues Comment: RW - Ambulation Level of Assistance: Verbal Cues, Contact Guard Distance (ft.): 125 Assistive Devices: Rolling Walker Orthoses: n/a Comment: -60 feet, 125 feet with RW with CS with WC follow due to impaired endurance. -VCs for upright gaze. -much improved fluidity with gait with improved respiratory control during gait. -standing rest break with 5 good breaths (pursed lip breathing) at end of each trial. -seated rest breaks between trials - Stair Negotiation Stairs: Level of Assistance: Supervision, Verbal Cues, Contact Guard Number of Stairs: 8 Stairs: Assistive Devices: Left Handrail, Right Handrail Comment: -3 4inch training steps with B rails with CG on first trial and CS on 2nd trial, step to pattern FWB BLE, VCs for upright gaze; seated rest break between trials - Standing Balance Static Stand: Supervision Dynamic Stand: Contact Guard Assist Comment: RW - Pain Pain (assessed during therapy session): 0 - Insight/Carryover Insight/Carryover: Good - Patient/Family Education Comment: Safety, plan of care, role of OT, energy conservation, AE/DME, compensatory strategies, - Assessment/Plan Assessment: Pt continues to display overal improvement with UE strength and endurance, however pt still requires a significant caregiver burden for ADL tasks including dressing, bathing and transfers. Skilled Ot services recommended 5-6x/week to maximize pts independence with ADLs and ADL transfers in order for pt to improve to PLOF - Goals Timeframe: 2 weeks Goals: LTG: S with transfers. S with toileting. S with ADLs. Caregiver to be I with assisting pt after caregiver training. MOD I with eating and grooming - Provider Therapist: Tejal WINSLOWN RN CRRN Occupational Therapy - Arousal/Attention/Orientation Patient Orientation: Person, Place, Time, Appropriate to Age, Appropriate to Situation - ADL/IADL Self Feeding: Supervision, Verbal Cues, Set-up Help Grooming: Supervision, Verbal Cues, Set-up Help Bathing-Upper Extremity: Minimal Assistance Bathing-Lower Extremity: Maximum Assistance Dressing-Upper Extremity: Verbal Cues, Set-up Help, Moderate Assistance Dressing-Lower Extremity: Dependent - Sitting Balance Static Sitting: Independent with upper extremity support Dynamic Sitting: Contact Guard Assist - Transfers Wheelchair to Bed Transfers: Verbal Cues, Set-up Help, Minimal Assistance Toilet Transfers: Supervision, Verbal Cues, Set-up Help, Contact Guard - Wheelchair Management Level of Assistance: Verbal Cues, Set-up Help, Minimal Assistance Distance (ft.): 30 - Upper Extremity Status Right Upper Extremity Comment: ROM WFL with exception to shoulder, MMT grossly 3 /5, weakened gross grasp Left Upper Extremity Comment: L hand dominant ROM WFL with exception to shoulder , MMT grossly 3/5, weakened gross grasp - Pain Pain (assessed during therapy session): 0 - Insight/Carryover Insight/Carryover: Good - Patient/Family Education Comment: Safety, plan of care, role of OT, energy conservation, AE/DME, compensatory strategies, - Assessment/Plan Assessment: Pt continues to display overal improvement with UE strength and endurance, however pt still requires a significant caregiver burden for ADL tasks including dressing, bathing and transfers. Skilled Ot services recommended 5-6x/week to maximize pts independence with ADLs and ADL transfers in order for pt to improve to PLOF - Goals Timeframe: 2 weeks Goals: LTG: S with transfers. S with toileting. S with ADLs. Caregiver to be I with assisting pt after caregiver training. MOD I with eating and grooming - Provider Therapist: Zainab Lew License Number: [id number] Speech Therapy - Plan Assessment: Pt continues to display overal improvement with UE strength and endurance, however pt still requires a significant caregiver burden for ADL tasks including dressing, bathing and transfers. Skilled Ot services recommended 5-6x/week to maximize pts independence with ADLs and ADL transfers in order for pt to improve to PLOF Recreational Therapy - Participation Participation: Participates in Individual and/or Group Sessions, Monitors His/ Her Own Leisure Time - Attendance Attendance: 3-5 times per week - Activities Leisure Activities: Television - Socialization Level of Socialization: Initiates/interacts freely with care givers and peer - Diversional Time Diversional Time: watching television, socializing - Assessment Assessment/Plan: Pt continues to display overal improvement with UE strength and endurance, however pt still requires a significant caregiver burden for ADL tasks including dressing, bathing and transfers. Skilled Ot services recommended 5-6x/week to maximize pts independence with ADLs and ADL transfers in order for pt to improve to PLOF - Provider Therapist: Mary Wilson, [facility] #[id number] Nutrition - Current Diet Current Diet/ Supplement/ Feedings: Moderate consistent CHO 2 gram Na prostat sugar free 2 per day(200 kcal and 30 grams of protein) - Appetite Percent Meal Consumed: 50-74% - Comments Comments: Care post abdominal surgery, infection control, safety precautions - Assessment/Goals/Time Frame Assessment/Goals/Time Frame: -Needs emotional support and positive reinforcement due to anxiety at times. -Still refuses to participate with Colostomy care, closes eyes and covers face during colostomy care. -Needs encouragement to increase independence with ADL's. - Provider Provider: Yesy Peres RD Case Management - Discharge Plan Discharge Plan: Home with significant other/family Rehabilitation Plan - Treatment Plan Treatment Plan: Physical Therapy, Occupational Therapy, Dietary, Pain Management , Wound Care, Patient/Family Education - Discharge Plan Estimated Date of Discharge: 03/01/17 Discharge to: Home
--- NOTE | 2017-02-20 13:27 | CP.PCM.PN ---
Subjective - Date & Time of Evaluation Date of Evaluation: 02/20/17 Time of Evaluation: 13:26 - Subjective Subjective: Patient seen in room denies sob/cp or fever abdominal incision is approximated will be able to shower 02/22 continue current care set for d/c home 03/01/17 Objective - Vital Signs/Intake and Output Vital Signs (last 24 hours): Temp Pulse Resp BP Pulse Ox 98.1 F 68 20 152/74 H 97 02/20/17 09:00 02/20/17 09:00 02/20/17 09:00 02/20/17 09:00 02/20/17 07:32 - Medications Medications: Current Medications Atorvastatin Calcium (Lipitor) 20 mg PO HS [facility] Last Admin: 02/19/17 21:18 Dose: 20 mg Docusate Sodium (Colace) 100 mg PO BID [facility] Last Admin: 02/20/17 08:40 Dose: 100 mg Enoxaparin Sodium (Lovenox) 40 mg SC DAILY [facility] PRN Reason: Protocol Last Admin: 02/20/17 08:37 Dose: 40 mg Famotidine (Pepcid) 20 mg PO BID [facility] Last Admin: 02/20/17 08:37 Dose: 20 mg Ferrous Sulfate (Feosol) 325 mg PO BID [facility] Last Admin: 02/20/17 08:37 Dose: 325 mg Insulin Detemir (Levemir) 16 units SC HS [facility] Last Admin: 02/19/17 21:19 Dose: 16 units Insulin Human Lispro (Humalog) 0 units SC [facility] PRN Reason: Protocol Last Admin: 02/20/17 12:28 Dose: 1 unit Latanoprost (Xalatan Opht) 1 drop OU HS [facility] Last Admin: 02/19/17 21:19 Dose: 1 drop Lisinopril (Zestril) 20 mg PO DAILY [facility] Last Admin: 02/20/17 08:40 Dose: 20 mg Metoprolol Tartrate (Lopressor) 25 mg PO Q12 [facility] Last Admin: 02/20/17 08:37 Dose: 25 mg Ondansetron HCl (Zofran Tab) 4 mg PO Q4 PRN PRN Reason: Nausea/Vomiting Trazodone HCl (Desyrel) 50 mg PO HS PRN PRN Reason: Insomnia Last Admin: 02/17/17 23:02 Dose: 50 mg - Labs Labs: 02/20/17 09:00 02/14/17 07:40 PT 13.4 Seconds (9.8-13.1) H 02/14/17 07:40 INR 1.2 (0.9-1.2) 02/14/17 07:40 APTT 24.5 Seconds (25.6-37.1) L 02/14/17 07:40
[2017-02-20] MEDS: Latanoprost 0.005% Opht SOUTION OU SCH (21:14)
[2017-02-20] MEDS: Insulin Detemir 100 Units/ml Inj SC SCH (21:15)
[2017-02-21] MEDS: Insulin Lispro (humaLOG) 100 Units/ml Inj SC SCH ×4 (06:30→21:16)
[2017-02-21] MEDS: Enoxaparin 40 mg Syringe SC SCH (08:22)
--- NOTE | 2017-02-21 15:57 | CP.PCM.PN ---
Subjective - Date & Time of Evaluation Date of Evaluation: 02/21/17 Time of Evaluation: 13:00 - Subjective Subjective: Pt seen and examined. Denied any complaint. Objective - Vital Signs/Intake and Output Vital Signs (last 24 hours): Temp Pulse Resp BP Pulse Ox 98.3 F 67 20 162/75 H 95 02/21/17 08:30 02/21/17 08:30 02/21/17 08:30 02/21/17 08:30 02/21/17 08:30 - Medications Medications: Current Medications Atorvastatin Calcium (Lipitor) 20 mg PO HS [facility] Last Admin: 02/20/17 21:14 Dose: 20 mg Docusate Sodium (Colace) 100 mg PO BID [facility] Last Admin: 02/21/17 08:20 Dose: 100 mg Enoxaparin Sodium (Lovenox) 40 mg SC DAILY [facility] PRN Reason: Protocol Last Admin: 02/21/17 08:22 Dose: 40 mg Famotidine (Pepcid) 20 mg PO BID [facility] Last Admin: 02/21/17 08:21 Dose: 20 mg Ferrous Sulfate (Feosol) 325 mg PO BID [facility] Last Admin: 02/21/17 08:20 Dose: 325 mg Insulin Detemir (Levemir) 16 units SC [facility] Last Admin: 02/20/17 21:15 Dose: 16 units Insulin Human Lispro (Humalog) 0 units SC [facility] PRN Reason: Protocol Last Admin: 02/21/17 12:14 Dose: Not Given Latanoprost (Xalatan Opht) 1 drop OU HS [facility] Last Admin: 02/20/17 21:14 Dose: 1 drop Lisinopril (Zestril) 20 mg PO DAILY [facility] Last Admin: 02/21/17 08:20 Dose: 20 mg Metoprolol Tartrate (Lopressor) 25 mg PO Q12 [facility] Last Admin: 02/21/17 08:21 Dose: 25 mg Ondansetron HCl (Zofran Tab) 4 mg PO Q4 PRN PRN Reason: Nausea/Vomiting Trazodone HCl (Desyrel) 50 mg PO HS PRN PRN Reason: Insomnia Last Admin: 02/20/17 21:14 Dose: 50 mg - Labs Labs: 02/20/17 09:00 02/14/17 07:40 PT 13.4 Seconds (9.8-13.1) H 02/14/17 07:40 INR 1.2 (0.9-1.2) 02/14/17 07:40 APTT 24.5 Seconds (25.6-37.1) L 02/14/17 07:40 - Constitutional Appears: No Acute Distress - Head Exam Head Exam: ATRAUMATIC - Eye Exam Eye Exam: absent: Scleral icterus - ENT Exam ENT Exam: Mucous Membranes Moist - Neck Exam Neck Exam: absent: Meningismus - Respiratory Exam Respiratory Exam: absent: Rhonchi, Wheezes, Respiratory Distress - Cardiovascular Exam Cardiovascular Exam: REGULAR RHYTHM, +S1, +S2 - GI/Abdominal Exam GI & Abdominal Exam: Soft. absent: Tenderness - Rectal Exam Rectal Exam: Deferred - Neurological Exam Neurological Exam: Alert, Oriented x3 - Psychiatric Exam Psychiatric exam: Normal Affect - Skin Skin Exam: Dry, Intact Assessment and Plan - Assessment and Plan (Free Text) Assessment: 71 yo male with history of colon cancer sent to acute rehab after undergoing elective colostomy reversal on 01/30/2017 at [facility] where surgical intervention was prolonged because of LLQ abscess formation requiring multiple lap washouts and resections. He was sent to acute rehab because of generalized weakness. 1. Generalized weakness Continue PT/OT Add prostat supplements 2. Colon Cancer s/p partial colectomy and colostomy then colostomy reversal and diverting loop colostomy Daily dressing of surgical wound Pain management with Percocet need surgical follow up 3. DM II BS relatively controlled Diabetic diet Levemir 16 units SC HS accuchek ACHS with low Lispro coverage 4. CAD continue Lipitor resume ASA in March 5. HTN BP controlled continue Metoprolol/Lisinopril 6. [place] CPAP at nights patient could use his own CPAP machine 7. Anemia acute blood loss anemia from surgery Hgb 8.4 continue Ferrous sulfate 325mg PO BID 8.Hypokalemia replaced with KCl BMP in am 9.DVT prophylaxis on Lovenox
[2017-02-21] MEDS: Latanoprost 0.005% Opht SOUTION OU SCH (22:23)
[2017-02-22] MEDS: Insulin Lispro (humaLOG) 100 Units/ml Inj SC SCH ×4 (07:22→21:27)
[2017-02-22 07:35] LABS: HEMOGLOBIN 7.9 g/dL (12.0-18.0); MEAN CELL VOLUME 73.9 fl (80.0-94.0); MEAN CORPUSCULAR HEMOGLOBIN 23.5 pg (27.0-31.0); MEAN CORPUSCULAR HGB CONC 31.9 g/dL (33.0-37.0); RBC 3.36 Mil/uL (4.40-5.90); RED CELL DISTRIBUTION WIDTH 16.6 % (11.5-14.5)
[2017-02-22 07:39] LABS: BLOOD UREA NITROGEN 9 mg/dl (9-20); CALCIUM 8.6 mg/dL (8.4-10.2); GFR AFRICAN-AMERICAN > 60; GFR NON-AFRICAN AMERICAN > 60
[2017-02-22] MEDS: Enoxaparin 40 mg Syringe SC SCH (08:26)
--- NOTE | 2017-02-22 16:51 | CP.PCM.CON ---
History of Present Illness - History of Present Illness History of Present Illness: 72 year old male patient seen at bedside complaining of elongated, painful nails. Patient seen resting in bed comfortably, AAOx3 and NAD. Patient denies N/ V/F/D/C/SOB. No other pedal complaints at this time. PMH: DM, HTN, HLD, colon cancer PSH: colostomy, colostomy revision FH: noncontributory All: NKDA Meds: see home meds list Review of Systems - Review of Systems All systems: reviewed and no additional remarkable complaints except Review of Systems: as per HPI Past Patient History - Past Medical History & Family History Past Medical History?: Yes - Past Social History Smoking Status: Former Smoker Home Situation {Lives}: With Family - CARDIAC Hx Cardiac Disorders: Yes Hx Hypertension: Yes - PULMONARY Hx Respiratory Disorders: Yes Hx Sleep Apnea: Yes Other/Comment: Respiratory Failure requring intubation - NEUROLOGICAL Hx Neurological Disorder: No - HEENT Hx Glaucoma: Yes Other/Comment: uses eyeglasses for reading - RENAL Other/Comment: Hx FLORENCIA - ENDOCRINE/METABOLIC Hx Diabetes Mellitus Type 2: Yes - HEMATOLOGICAL/ONCOLOGICAL Hx Cancer: Yes - INTEGUMENTARY Hx Dermatological Problems: No - MUSCULOSKELETAL/RHEUMATOLOGICAL Hx Arthritis: Yes - GASTROINTESTINAL Hx Gastrointestinal Disorders: Yes Hx Bowel Surgery: Yes (s/p Partial colectomy) Hx Colostomy: Yes - GENITOURINARY/GYNECOLOGICAL Hx Genitourinary Disorders: No - PSYCHIATRIC Hx Substance Use: No - SURGICAL HISTORY Hx Surgeries: Yes Other/Comment: 01/30/17: Ex-Lap: take down of splenic flexure, lysis. of adhesions, partial colectomy, colostomy. reversal failed, colostomy, audrey of. thrombosed hemorrhoid. 02/03/17: Ex-Lap: washout & drainage, SBR, take. down of colorectal anastomosis with. resection, TAC (left in discontinuity @. distal ileum and rectum. 02/06/17: Ex-Lap: washout, loop colostomy. takedown , splenic injury repair, SB anas-. tomosis, pelvic abscess washout, colon. resection, appendectomy, rectal stump. repair, end colostomy, TAC. 02/09/17: Ex-Lap: washout, abd closure with. retention sutures. (02/10/17: Extubated) . (02/13/17: Right Jugular TLC D/C) - ANESTHESIA Hx Anesthesia: Yes Hx Anesthesia Reactions: Yes (Post-op Delirium) Hx Malignant Hyperthermia: No Has any member of the family had a problem w/ anesthesia?: No Meds Allergies/Adverse Reactions: Allergies Allergy/AdvReac Type Severity Reaction Status Date / Time No Known Allergies Allergy Verified 02/13/17 17:33 - Medications Medications: Current Medications Atorvastatin Calcium (Lipitor) 20 mg PO HS [facility] Last Admin: 02/21/17 22:23 Dose: 20 mg Docusate Sodium (Colace) 100 mg PO BID [facility] Last Admin: 02/22/17 08:26 Dose: 100 mg Enoxaparin Sodium (Lovenox) 40 mg SC DAILY [facility] PRN Reason: Protocol Last Admin: 02/22/17 08:26 Dose: 40 mg Famotidine (Pepcid) 20 mg PO BID [facility] Last Admin: 02/22/17 08:28 Dose: 20 mg Ferrous Sulfate (Feosol) 325 mg PO BID [facility] Last Admin: 02/22/17 08:27 Dose: 325 mg Insulin Human Lispro (Humalog) 0 units SC [facility] PRN Reason: Protocol Last Admin: 02/22/17 12:00 Dose: 1 unit Latanoprost (Xalatan Opht) 1 drop OU HS [facility] Last Admin: 02/21/17 22:23 Dose: 1 drop Lisinopril (Zestril) 20 mg PO DAILY [facility] Last Admin: 02/22/17 08:27 Dose: 20 mg Metformin HCl (Glucophage) 500 mg PO BIDWM [facility] Last Admin: 02/22/17 08:27 Dose: 500 mg Metoprolol Tartrate (Lopressor) 25 mg PO Q12 [facility] Last Admin: 02/22/17 08:28 Dose: 25 mg Ondansetron HCl (Zofran Tab) 4 mg PO Q4 PRN PRN Reason: Nausea/Vomiting Trazodone HCl (Desyrel) 50 mg PO HS PRN PRN Reason: Insomnia Last Admin: 02/20/17 21:14 Dose: 50 mg Physical Exam - Constitutional Appears: Well, Non-toxic, No Acute Distress - Extremities Exam Additional comments: Vasc: DP and PT pulses palpable 2/4 b/l. CFT <3 seconds to all digits. TG warm to warm. Neuro: Gross sensation diminished. Derm: Nails 1-5 b/l are elongated, thickened, and dystrophic with the presence of subungual debris. Skin appears well-hydrated. Ortho: Pain on palpation noted to nails 1-5 b/l. - Neurological Exam Neurological exam: Alert, Oriented x3 - Psychiatric Exam Psychiatric exam: Normal Affect, Normal Mood Results - Vital Signs Recent Vital Signs: Last Vital Signs Temp 97.7 F 02/22/17 08:24 Pulse 66 02/22/17 08:28 Resp 20 02/22/17 08:24 BP 144/74 02/22/17 08:28 Pulse Ox 95 02/22/17 08:24 - Labs Result Diagrams: 02/22/17 05:30 02/22/17 05:30 Labs: Laboratory Results - last 24 hr 02/21/17 02/22/17 02/22/17 21:16 05:30 05:30 WBC 7.0 RBC 3.36 L Hgb 7.9 L Hct 24.9 L MCV 73.9 L MCH 23.5 L MCHC 31.9 L RDW 16.6 H Plt Count 231 Sodium 140 Potassium 3.4 L Chloride 106 Carbon Dioxide 26 Anion Gap 11 BUN 9 Creatinine 0.5 L Est GFR ( Amer) > 60 Est GFR (Non-Af Amer) > 60 POC Glucose (mg/dL) 138 H Random Glucose 141 H Hemoglobin A1c Calcium 8.6 02/22/17 02/22/17 02/22/17 05:30 06:03 11:57 WBC RBC Hgb Hct MCV MCH MCHC RDW Plt Count Sodium Potassium Chloride Carbon Dioxide Anion Gap BUN Creatinine Est GFR ( Amer) Est GFR (Non-Af Amer) POC Glucose (mg/dL) 156 H 174 H Random Glucose Hemoglobin A1c 6.4 Calcium 02/22/17 16:08 WBC RBC Hgb Hct MCV MCH MCHC RDW Plt Count Sodium Potassium Chloride Carbon Dioxide Anion Gap BUN Creatinine Est GFR ( Amer) Est GFR (Non-Af Amer) POC Glucose (mg/dL) 121 H Random Glucose Hemoglobin A1c Calcium Assessment & Plan - Assessment and Plan (Free Text) Assessment: 72 year old male with PMHx DM, HTN, HLD with onychomycosis Plan: Patient seen and evaluated at bedside. Discussed with attending, Dr. Ward. Charts, labs, vitals reviewed. Nails 1-5 b/l debrided without incident and to patient satisfaction. Stable from podiatry standpoint. Thank you for this consult, please reconsult again as needed. - Date & Time Date: 02/22/17 Time: 16:59
--- NOTE | 2017-02-22 17:55 | CP.PCM.PN ---
Subjective - Date & Time of Evaluation Date of Evaluation: 02/22/17 Time of Evaluation: 17:54 - Subjective Subjective: Patient seen and continues to make excellent gains in therapies pain is well controlled took a shower today he is an excellent acute rehab candidate and will be ready for d/c on 03/01/17 as planned Objective - Vital Signs/Intake and Output Vital Signs (last 24 hours): Temp Pulse Resp BP Pulse Ox 97.7 F 66 20 144/74 95 02/22/17 08:24 02/22/17 08:28 02/22/17 08:24 02/22/17 08:28 02/22/17 08:24 - Medications Medications: Current Medications Atorvastatin Calcium (Lipitor) 20 mg PO HS [facility] Last Admin: 02/21/17 22:23 Dose: 20 mg Docusate Sodium (Colace) 100 mg PO BID [facility] Last Admin: 02/22/17 17:04 Dose: 100 mg Enoxaparin Sodium (Lovenox) 40 mg SC DAILY [facility] PRN Reason: Protocol Last Admin: 02/22/17 08:26 Dose: 40 mg Famotidine (Pepcid) 20 mg PO BID [facility] Last Admin: 02/22/17 17:03 Dose: 20 mg Ferrous Sulfate (Feosol) 325 mg PO BID [facility] Last Admin: 02/22/17 17:03 Dose: 325 mg Insulin Human Lispro (Humalog) 0 units SC [facility] PRN Reason: Protocol Last Admin: 02/22/17 17:04 Dose: Not Given Latanoprost (Xalatan Opht) 1 drop OU HS [facility] Last Admin: 02/21/17 22:23 Dose: 1 drop Lisinopril (Zestril) 20 mg PO DAILY [facility] Last Admin: 02/22/17 08:27 Dose: 20 mg Metformin HCl (Glucophage) 500 mg PO BIDWM [facility] Last Admin: 02/22/17 17:03 Dose: 500 mg Metoprolol Tartrate (Lopressor) 25 mg PO Q12 [facility] Last Admin: 02/22/17 08:28 Dose: 25 mg Ondansetron HCl (Zofran Tab) 4 mg PO Q4 PRN PRN Reason: Nausea/Vomiting Trazodone HCl (Desyrel) 50 mg PO HS PRN PRN Reason: Insomnia Last Admin: 02/20/17 21:14 Dose: 50 mg - Labs Labs: 02/22/17 05:30 02/22/17 05:30 PT 13.4 Seconds (9.8-13.1) H 02/14/17 07:40 INR 1.2 (0.9-1.2) 02/14/17 07:40 APTT 24.5 Seconds (25.6-37.1) L 02/14/17 07:40
[2017-02-22] MEDS: Latanoprost 0.005% Opht SOUTION OU SCH (21:22)
[2017-02-23] MEDS: Insulin Lispro (humaLOG) 100 Units/ml Inj SC SCH ×4 (07:13→22:08)
--- NOTE | 2017-02-23 08:04 | CP.PCM.CON ---
History of Present Illness - History of Present Illness History of Present Illness: Pt seen for supportive therapy 7:30-7:50. Pt discussed continued dysphoria and frustration with medical issues, past surgeries and current status. Pt spoke of concerns for his future, anxiety and thoughts of needing to return to previous level of functioning. Pt acknowledges greatest concern right now is "Psychological". Pt referred for continued supportive services upon discharge. Past Patient History - Past Medical History & Family History Past Medical History?: Yes - Past Social History Smoking Status: Former Smoker Home Situation {Lives}: With Family - CARDIAC Hx Cardiac Disorders: Yes Hx Hypertension: Yes - PULMONARY Hx Respiratory Disorders: Yes Hx Sleep Apnea: Yes Other/Comment: Respiratory Failure requring intubation - NEUROLOGICAL Hx Neurological Disorder: No - HEENT Hx Glaucoma: Yes Other/Comment: uses eyeglasses for reading - RENAL Other/Comment: Hx FLORENCIA - ENDOCRINE/METABOLIC Hx Diabetes Mellitus Type 2: Yes - HEMATOLOGICAL/ONCOLOGICAL Hx Cancer: Yes - INTEGUMENTARY Hx Dermatological Problems: No - MUSCULOSKELETAL/RHEUMATOLOGICAL Hx Arthritis: Yes - GASTROINTESTINAL Hx Gastrointestinal Disorders: Yes Hx Bowel Surgery: Yes (s/p Partial colectomy) Hx Colostomy: Yes - GENITOURINARY/GYNECOLOGICAL Hx Genitourinary Disorders: No - PSYCHIATRIC Hx Substance Use: No - SURGICAL HISTORY Hx Surgeries: Yes Other/Comment: 01/30/17: Ex-Lap: take down of splenic flexure, lysis. of adhesions, partial colectomy, colostomy. reversal failed, colostomy, audrey of. thrombosed hemorrhoid. 02/03/17: Ex-Lap: washout & drainage, SBR, take. down of colorectal anastomosis with. resection, TAC (left in discontinuity @. distal ileum and rectum. 02/06/17: Ex-Lap: washout, loop colostomy. takedown , splenic injury repair, SB anas-. tomosis, pelvic abscess washout, colon. resection, appendectomy, rectal stump. repair, end colostomy, TAC. 02/09/17: Ex-Lap: washout, abd closure with. retention sutures. (02/10/17: Extubated) . (02/13/17: Right Jugular TLC D/C) - ANESTHESIA Hx Anesthesia: Yes Hx Anesthesia Reactions: Yes (Post-op Delirium) Hx Malignant Hyperthermia: No Has any member of the family had a problem w/ anesthesia?: No Meds Allergies/Adverse Reactions: Allergies Allergy/AdvReac Type Severity Reaction Status Date / Time No Known Allergies Allergy Verified 02/13/17 17:33 - Medications Medications: Current Medications Atorvastatin Calcium (Lipitor) 20 mg PO HS [facility] Last Admin: 02/22/17 21:20 Dose: 20 mg Docusate Sodium (Colace) 100 mg PO BID [facility] Last Admin: 02/22/17 17:04 Dose: 100 mg Enoxaparin Sodium (Lovenox) 40 mg SC DAILY [facility] PRN Reason: Protocol Last Admin: 02/22/17 08:26 Dose: 40 mg Famotidine (Pepcid) 20 mg PO BID [facility] Last Admin: 02/22/17 17:03 Dose: 20 mg Ferrous Sulfate (Feosol) 325 mg PO BID [facility] Last Admin: 02/22/17 17:03 Dose: 325 mg Insulin Human Lispro (Humalog) 0 units SC [facility] PRN Reason: Protocol Last Admin: 02/23/17 07:13 Dose: Not Given Latanoprost (Xalatan Opht) 1 drop OU HS [facility] Last Admin: 02/22/17 21:22 Dose: 1 drop Lisinopril (Zestril) 20 mg PO DAILY [facility] Last Admin: 02/22/17 08:27 Dose: 20 mg Metformin HCl (Glucophage) 500 mg PO BIDWM [facility] Last Admin: 02/22/17 17:03 Dose: 500 mg Metoprolol Tartrate (Lopressor) 25 mg PO Q12 [facility] Last Admin: 02/22/17 21:21 Dose: 25 mg Ondansetron HCl (Zofran Tab) 4 mg PO Q4 PRN PRN Reason: Nausea/Vomiting Trazodone HCl (Desyrel) 50 mg PO HS PRN PRN Reason: Insomnia Last Admin: 02/20/17 21:14 Dose: 50 mg Results - Vital Signs Recent Vital Signs: Last Vital Signs Temp 97.4 F L 02/22/17 20:10 Pulse 69 02/22/17 21:21 Resp 20 02/22/17 20:10 BP 140/70 02/22/17 21:21 Pulse Ox 97 02/22/17 20:10 - Labs Result Diagrams: 02/22/17 05:30 02/22/17 05:30 Labs: Laboratory Results - last 24 hr 07/2002/22/17 02/22/17 05:30 11:57 16:08 POC Glucose (mg/dL) 174 H 121 H Hemoglobin A1c 6.4 02/22/17 02/23/17 20:54 06:11 POC Glucose (mg/dL) 135 H 137 H Hemoglobin A1c
[2017-02-23] MEDS: Enoxaparin 40 mg Syringe SC SCH (08:24)
--- NOTE | 2017-02-23 14:24 | CP.PCM.PN ---
Subjective - Date & Time of Evaluation Date of Evaluation: 02/23/17 Time of Evaluation: 10:45 - Subjective Subjective: Pt seen and examined. Claimed he was feeling alright. Objective - Vital Signs/Intake and Output Vital Signs (last 24 hours): Temp Pulse Resp BP Pulse Ox 98.2 F 63 20 144/76 98 02/23/17 09:14 02/23/17 13:12 02/23/17 13:12 02/23/17 13:12 02/23/17 13:12 - Medications Medications: Current Medications Atorvastatin Calcium (Lipitor) 20 mg PO HS [facility] Last Admin: 02/22/17 21:20 Dose: 20 mg Docusate Sodium (Colace) 100 mg PO BID [facility] Last Admin: 02/23/17 08:19 Dose: 100 mg Enoxaparin Sodium (Lovenox) 40 mg SC DAILY [facility] PRN Reason: Protocol Last Admin: 02/23/17 08:24 Dose: 40 mg Famotidine (Pepcid) 20 mg PO BID [facility] Last Admin: 02/23/17 08:25 Dose: 20 mg Ferrous Sulfate (Feosol) 325 mg PO BID [facility] Last Admin: 02/23/17 08:23 Dose: 325 mg Insulin Human Lispro (Humalog) 0 units SC [facility] PRN Reason: Protocol Last Admin: 02/23/17 12:23 Dose: 1 unit Latanoprost (Xalatan Opht) 1 drop OU HS [facility] Last Admin: 02/22/17 21:22 Dose: 1 drop Lisinopril (Zestril) 20 mg PO DAILY [facility] Last Admin: 02/23/17 08:25 Dose: 20 mg Metformin HCl (Glucophage) 500 mg PO BIDWM [facility] Last Admin: 02/23/17 08:24 Dose: 500 mg Metoprolol Tartrate (Lopressor) 25 mg PO Q12 [facility] Last Admin: 02/23/17 08:24 Dose: 25 mg Ondansetron HCl (Zofran Tab) 4 mg PO Q4 PRN PRN Reason: Nausea/Vomiting Trazodone HCl (Desyrel) 50 mg PO HS PRN PRN Reason: Insomnia Last Admin: 02/20/17 21:14 Dose: 50 mg - Labs Labs: 02/22/17 05:30 02/22/17 05:30 PT 13.4 Seconds (9.8-13.1) H 02/14/17 07:40 INR 1.2 (0.9-1.2) 02/14/17 07:40 APTT 24.5 Seconds (25.6-37.1) L 02/14/17 07:40 - Constitutional Appears: No Acute Distress - Head Exam Head Exam: ATRAUMATIC - Eye Exam Eye Exam: absent: Scleral icterus - ENT Exam ENT Exam: Mucous Membranes Moist - Neck Exam Neck Exam: absent: Meningismus - Respiratory Exam Respiratory Exam: absent: Rhonchi, Wheezes, Respiratory Distress - Cardiovascular Exam Cardiovascular Exam: REGULAR RHYTHM, +S1, +S2 - GI/Abdominal Exam GI & Abdominal Exam: Soft. absent: Tenderness Additional comments: colostomy bag intact - Rectal Exam Rectal Exam: Deferred - Neurological Exam Neurological Exam: Alert, Oriented x3 - Psychiatric Exam Psychiatric exam: Normal Affect - Skin Skin Exam: Dry, Intact, Pallor Assessment and Plan - Assessment and Plan (Free Text) Assessment: 71 yo male with history of colon cancer sent to acute rehab after undergoing elective colostomy reversal on 01/30/2017 at [facility] [place] where surgical intervention was prolonged because of LLQ abscess formation requiring multiple lap washouts and resections. He was sent to acute rehab because of generalized weakness. 1. Generalized weakness Continue PT/OT Add prostat supplements 2. Colon Cancer s/p partial colectomy and colostomy then colostomy reversal and diverting loop colostomy Daily dressing of surgical wound Pain management with Percocet need surgical follow up 3. DM II BS relatively controlled Diabetic diet Levemir 16 units SC HS accuchek ACHS with low Lispro coverage 4. CAD asymptomatic continue Lipitor resume ASA in March 5. HTN BP controlled continue Metoprolol/Lisinopril 6. [place] CPAP at nights patient could use his own CPAP machine 7. Anemia acute blood loss anemia from surgery Hgb 7.9 continue Ferrous sulfate 325mg PO BID 8.Hypokalemia replaced with KCl BMP bmo 9.DVT prophylaxis on Lovenox
[2017-02-23 15:52] LABS: BLOOD UREA NITROGEN 13 mg/dl (9-20); CALCIUM 9.1 mg/dL (8.4-10.2); GFR AFRICAN-AMERICAN > 60; GFR NON-AFRICAN AMERICAN > 60
[2017-02-23] MEDS: Latanoprost 0.005% Opht SOUTION OU SCH (22:08)
[2017-02-24] MEDS: Insulin Lispro (humaLOG) 100 Units/ml Inj SC SCH ×4 (07:40→21:00)
[2017-02-24] MEDS: Enoxaparin 40 mg Syringe SC SCH (08:34)
[2017-02-24] MEDS: Latanoprost 0.005% Opht SOUTION OU SCH (21:01)
[2017-02-25] MEDS: Insulin Lispro (humaLOG) 100 Units/ml Inj SC SCH ×4 (06:33→21:00)
[2017-02-25 08:09] LABS: HEMOGLOBIN 8.1 g/dL (12.0-18.0); MEAN CELL VOLUME 72.6 fl (80.0-94.0); MEAN CORPUSCULAR HEMOGLOBIN 23.5 pg (27.0-31.0); MEAN CORPUSCULAR HGB CONC 32.4 g/dL (33.0-37.0); RBC 3.44 Mil/uL (4.40-5.90); RED CELL DISTRIBUTION WIDTH 16.5 % (11.5-14.5); WHITE BLOOD COUNT 7.3 K/uL (4.8-10.8)
[2017-02-25] MEDS: Enoxaparin 40 mg Syringe SC SCH (09:23)
[2017-02-25] MEDS: Latanoprost 0.005% Opht SOUTION OU SCH (21:38)
[2017-02-26] MEDS: Insulin Lispro (humaLOG) 100 Units/ml Inj SC SCH ×4 (06:30→21:44)
[2017-02-26] MEDS: Enoxaparin 40 mg Syringe SC SCH (08:31)
--- NOTE | 2017-02-26 12:10 | CP.PCM.PN ---
Subjective - Date & Time of Evaluation Date of Evaluation: 02/26/17 Time of Evaluation: 16:00 - Subjective Subjective: Patient seen and examined bedside.Feeling better.Complains of insomnia , unable to take a full night sleep.Worried about his discharge day. Hemodynamically stable, afbrile. No acute issues overnight. Participating with PT . Still a little weak and tired , pale Objective - Vital Signs/Intake and Output Vital Signs (last 24 hours): Temp Pulse Resp BP Pulse Ox 98.2 F 75 21 129/75 97 02/26/17 08:34 02/26/17 08:34 02/26/17 08:34 02/26/17 08:34 02/26/17 08:34 - Medications Medications: Current Medications Atorvastatin Calcium (Lipitor) 20 mg PO HS [facility] Last Admin: 02/25/17 21:38 Dose: 20 mg Docusate Sodium (Colace) 100 mg PO BID [facility] Last Admin: 02/26/17 08:30 Dose: 100 mg Enoxaparin Sodium (Lovenox) 40 mg SC DAILY [facility] PRN Reason: Protocol Last Admin: 02/26/17 08:31 Dose: 40 mg Famotidine (Pepcid) 20 mg PO BID [facility] Last Admin: 02/26/17 08:31 Dose: 20 mg Ferrous Sulfate (Feosol) 325 mg PO BID [facility] Last Admin: 02/26/17 08:29 Dose: 325 mg Insulin Human Lispro (Humalog) 0 units SC ACHS [facility] PRN Reason: Protocol Last Admin: 02/26/17 12:03 Dose: 1 unit Latanoprost (Xalatan Opht) 1 drop OU HS [facility] Last Admin: 02/25/17 21:38 Dose: 1 drop Lisinopril (Zestril) 20 mg PO DAILY [facility] Last Admin: 02/26/17 08:31 Dose: 20 mg Metformin HCl (Glucophage) 500 mg PO BIDWM [facility] Last Admin: 02/26/17 08:29 Dose: 500 mg Metoprolol Tartrate (Lopressor) 25 mg PO Q12 [facility] Last Admin: 02/26/17 08:30 Dose: 25 mg Ondansetron HCl (Zofran Tab) 4 mg PO Q4 PRN PRN Reason: Nausea/Vomiting Trazodone HCl (Desyrel) 50 mg PO HS PRN PRN Reason: Insomnia Last Admin: 02/25/17 21:53 Dose: 50 mg - Labs Labs: 02/25/17 05:30 02/23/17 15:28 PT 13.4 Seconds (9.8-13.1) H 02/14/17 07:40 INR 1.2 (0.9-1.2) 02/14/17 07:40 APTT 24.5 Seconds (25.6-37.1) L 02/14/17 07:40 - Constitutional Appears: Non-toxic, No Acute Distress - Head Exam Head Exam: ATRAUMATIC, NORMAL INSPECTION, NORMOCEPHALIC - Eye Exam Eye Exam: EOMI, Normal appearance, PERRL Pupil Exam: NORMAL ACCOMODATION - ENT Exam ENT Exam: Mucous Membranes Moist, Normal Exam - Neck Exam Neck Exam: Full ROM, Normal Inspection - Respiratory Exam Respiratory Exam: Clear to Ausculation Bilateral, NORMAL BREATHING PATTERN. absent: Rales, Rhonchi, Wheezes - Cardiovascular Exam Cardiovascular Exam: REGULAR RHYTHM, RRR, +S1, +S2. absent: JVD - GI/Abdominal Exam GI & Abdominal Exam: Soft, Normal Bowel Sounds. absent: Distended, Guarding, Rebound Additional comments: midline surgical incision healing well colostomy to LLQ with clean stump - Rectal Exam Rectal Exam: Deferred - Extremities Exam Extremities Exam: Full ROM, Normal Capillary Refill, Normal Inspection. absent : Pedal Edema - Back Exam Back Exam: NORMAL INSPECTION - Neurological Exam Neurological Exam: Alert, Awake, CN II-XII Intact, Oriented x3 - Psychiatric Exam Psychiatric exam: Flat Affect - Skin Skin Exam: Dry, Pallor, Warm Assessment and Plan - Assessment and Plan (Free Text) Assessment: 72 yo male with history of colon cancer sent to acute rehab after [place] [facility] [place] intervention was prolonged because of LLQ abscess formation requiring multiple lap washouts and resections. He was sent to acute rehab because of generalized weakness. At present feeling better, participating with PT , still weak 1. Generalized weakness Continue PT/OT Still feeling weak but improving Participating with PT For potential discharge on 03/01 prostat supplements 2. Colon Cancer s/p partial colectomy and colostomy then colostomy reversal and diverting loop colostomy surgical incision healing well Dressing changes daily need surgical follow up after discharge Oncology d=follow up 3. DM II controlled Diabetic diet on Metformin 500 mg PO BID accuchek ACHS with low Lispro coverage 4. CAD asymptomatic continue Lipitor resume ASA in March 5. HTN BP controlled continue Metoprolol/Lisinopril 6. [place] CPAP at nights patient could use his own CPAP machine 7. Anemia acute blood loss anemia from surgery Hgb 8 continue Ferrous sulfate 325mg PO BID 8. Adjustment disorder with insomnia on trazodone 9.DVT prophylaxis on Lovenox
[2017-02-26] MEDS: Latanoprost 0.005% Opht SOUTION OU SCH (21:44)
[2017-02-27] MEDS: Insulin Lispro (humaLOG) 100 Units/ml Inj SC SCH ×4 (06:55→21:15)
[2017-02-27] MEDS: Enoxaparin 40 mg Syringe SC SCH (08:39)
--- NOTE | 2017-02-27 13:07 | PSY.TMCNF ---
Nursing - Vital Signs Vital Signs (Last 8 hours): Vital Signs 02/27/17 02/27/17 02/27/17 08:40 08:41 08:49 Temperature 98.0 F Pulse Rate 65 65 66 Respiratory 19 Rate Blood Pressure 153/54 H 153/54 H 153/54 H O2 Sat by Pulse 96 Oximetry 02/27/17 09:00 Temperature 98.0 F Pulse Rate 66 Respiratory 19 Rate Blood Pressure 153/54 H O2 Sat by Pulse Oximetry Pain: 0 - Precautions: Precautions: Fall Prevention, Pressure Ulcer - Medications/Other Issues Comment: Needs encouragement to increase participation with ADL's - Consults Comment: Dr. Julio, Dr. Patino, Dr. Haro - Skin Incision Site: mid-abdomen Dressing Status: Changed Incision: Mcgee Intact, Sutures Intact, No Drainage Noted Incision Line Treatment: Cleanse I/L (with joey and retention sutures) with NS, pat dry, then cover with dressing. - Wound Right Medial Ear Wound Type: Pressure Ulcer Wound Stage: Unstageable Wound Shape: Triangular Wound Edges: Attached Tunneling: No Undermining: No Wound Bed Greatest Portion: Black (Eschar) Wound Bed Lesser Portion: Black (Eschar) Periwound: Intact Wound Drainage Amount: None Wound Drainage Odor: None/Absent Wound General Appearance: Open to air Wound Dressing Status: Open to air Dressing Changed: No Wound Packing Type: Not applicable Wound Primary Dressing Type: Open to air - Toileting Toileting: Supervision - Bladder Management Bladder Pattern: Normal Voiding Method: Toilet, Urinal Bladder Management: Supervision Frequency of Accidents: 0 - Bowel Management Bowel Pattern: Fecal Management System Comment: (+) Colostomy on LLQ, draining formed soft greenish black stool Bowel Management: Dependent Frequency of Accidents: 0 - Transfers Transfers: Supervision - ADL's ADL's: Supervision - Pain Management Comments: Haven't used any pain medication since admission, denies pain most of the time. - Patient/Family Teaching Comments: Care post abdominal surgery, infection control, safety precautions - Goals/Time Frame Comments: Per multidisciplinary care plan and goals. - Provider Provider: PHILLIP WINSLOWN RN CRRN Physical Therapy - Bed Mobility Bed Mobility: Supervision - Transfers Sit to Stand: Modified Independent - Ambulation Level of Assistance: Supervision Distance (ft.): 250 Assistive Devices: Rolling Walker - Stair Negotiation Stairs: Level of Assistance: Supervision Number of Stairs: 11 Handrails: Right Stairs: Assistive Devices: Right Handrail - Standing Balance Static Stand: Supervision Dynamic Stand: Supervision, Contact Guard Assist - Pain Pain (assessed during therapy session): 0 - Insight/Carryover Insight/Carryover: Good - Patient/Family Education Comment: Safety, AE/DME, compensatory strategies, energy conservation, fall prevention. - Assessment/Plan Assessment: Pt continues to be highly motiviated, making progress daily. Pt is now safe to transfer from bed ><chair at MOD I and utilized toilet when needed to urinate. Plan to complete shower tomorrow and a meal prep task in order to maximize pt's functional independence and return to PLOF - Goals Timeframe: 3 days Goals: MOD I with ADLs. MOD I with ADL transfers. Setup/supervision - Provider Therapist: Krysten Dudley PT DPT License Number: [id number] Occupational Therapy - Arousal/Attention/Orientation Patient Orientation: Person, Place, Time, Appropriate to Age, Appropriate to Situation - ADL/IADL Self Feeding: Independent Grooming: Independent Bathing-Upper Extremity: Supervision, Verbal Cues, Set-up Help Bathing-Lower Extremity: Minimal Assistance Dressing-Upper Extremity: Supervision, Verbal Cues, Set-up Help Dressing-Lower Extremity: Supervision, Verbal Cues, Set-up Help - Sitting Balance Static Sitting: Independent without upper extremity support Dynamic Sitting: Reaches across midline, Reaches out of base of support, Reaches within base of support - Transfers Wheelchair to Bed Transfers: Modified Independent Toilet Transfers: Modified Independent Tub Transfers: Supervision, Verbal Cues, Set-up Help - Wheelchair Management Level of Assistance: Modified Independent, Supervision - Upper Extremity Status Right Upper Extremity Comment: ROM WFL, MMT Grossly 4-5, weakened gross grasp Left Upper Extremity Comment: ROM WFL, MMT Grossly 4-5, weakened gross grasp - Pain Pain (assessed during therapy session): 0 - Insight/Carryover Insight/Carryover: Good - Patient/Family Education Comment: Safety, AE/DME, compensatory strategies, energy conservation, fall prevention. - Assessment/Plan Assessment: Pt continues to be highly motiviated, making progress daily. Pt is now safe to transfer from bed ><chair at MOD I and utilized toilet when needed to urinate. Plan to complete shower tomorrow and a meal prep task in order to maximize pt's functional independence and return to PLOF - Goals Timeframe: 3 days Goals: MOD I with ADLs. MOD I with ADL transfers. Setup/supervision - Provider Therapist: Zainab Lew License Number: [id number] Speech Therapy - Plan Assessment: Pt continues to be highly motiviated, making progress daily. Pt is now safe to transfer from bed ><chair at MOD I and utilized toilet when needed to urinate. Plan to complete shower tomorrow and a meal prep task in order to maximize pt's functional independence and return to PLOF Recreational Therapy - Participation Participation: Participates in Individual and/or Group Sessions, Monitors His/ Her Own Leisure Time - Attendance Attendance: 3-5 times per week - Activities Leisure Activities: Television - Socialization Level of Socialization: Initiates/interacts freely with care givers and peer - Diversional Time Diversional Time: television, crosswords, socializing - Assessment Assessment/Plan: Pt continues to be highly motiviated, making progress daily. Pt is now safe to transfer from bed ><chair at MOD I and utilized toilet when needed to urinate. Plan to complete shower tomorrow and a meal prep task in order to maximize pt's functional independence and return to PLOF - Provider Therapist: Mary Wilson, [facility] #[id number] Nutrition - Current Diet Current Diet/ Supplement/ Feedings: Moderate consistent CHO 2 gram Na prostat sugar free 30 ml 2 per day - Appetite Percent Meal Consumed: 50-74% - Comments Comments: Care post abdominal surgery, infection control, safety precautions - Assessment/Goals/Time Frame Assessment/Goals/Time Frame: Needs encouragement to increase participation with ADL's - Provider Provider: Yesy Peres RD Case Management - Psychosocial Assessment Support Systems: Patient's spouse Lrona [phone] Psychological Interventions/Needs: Patient is alert and oriented x3, however, anxious about colostomy care Discharge Concerns: Patient currently requiring requiring CG-S for bed mobility and transfers Patient/Family Meeting: CM met with patient/spouse and rehab team Intervention/Goal/Outcome:: 1. GOAL: Mod I overall. 2. Plan: Home with skilled- refer to [facility]. 3. DME needs. 4. caregiver training? 5. f/u appts. 6. continued emotional support. 7. Tentative discharge date: 03/01/2017 - Discharge Plan Discharge Plan: Home with services Home Services: [facility] - Provider Provider: GUANAKO Jurado LSW License Number: [id number] Rehabilitation Plan - Treatment Plan Treatment Plan: Physical Therapy, Occupational Therapy, Dietary, Pain Management , Wound Care, Patient/Family Education - Discharge Plan Estimated Date of Discharge: 03/01/17 Discharge to: Home
--- NOTE | 2017-02-27 13:32 | CP.PCM.PN ---
Subjective - Date & Time of Evaluation Date of Evaluation: 02/27/17 Time of Evaluation: 13:31 - Subjective Subjective: patient seen in room pain is controlled abdomen incision is healed, joey in place + colostomy set for d/c 03/01/17 has made excellent gains Objective - Vital Signs/Intake and Output Vital Signs (last 24 hours): Temp Pulse Resp BP Pulse Ox 98.0 F 66 19 153/54 H 96 02/27/17 09:00 02/27/17 09:00 02/27/17 09:00 02/27/17 09:00 02/27/17 08:49 - Medications Medications: Current Medications Atorvastatin Calcium (Lipitor) 20 mg PO HS [facility] Last Admin: 02/26/17 21:44 Dose: 20 mg Docusate Sodium (Colace) 100 mg PO BID [facility] Last Admin: 02/27/17 08:40 Dose: 100 mg Enoxaparin Sodium (Lovenox) 40 mg SC DAILY [facility] PRN Reason: Protocol Last Admin: 02/27/17 08:39 Dose: 40 mg Famotidine (Pepcid) 20 mg PO BID [facility] Last Admin: 02/27/17 08:39 Dose: 20 mg Ferrous Sulfate (Feosol) 325 mg PO BID [facility] Last Admin: 02/27/17 08:41 Dose: 325 mg Insulin Human Lispro (Humalog) 0 units SC ACHS [facility] PRN Reason: Protocol Last Admin: 02/27/17 12:04 Dose: 1 unit Latanoprost (Xalatan Opht) 1 drop OU HS [facility] Last Admin: 02/26/17 21:44 Dose: 1 drop Lisinopril (Zestril) 20 mg PO DAILY [facility] Last Admin: 02/27/17 08:40 Dose: 20 mg Metformin HCl (Glucophage) 500 mg PO BIDWM [facility] Last Admin: 02/27/17 08:39 Dose: 500 mg Metoprolol Tartrate (Lopressor) 25 mg PO Q12 [facility] Last Admin: 02/27/17 08:41 Dose: 25 mg Ondansetron HCl (Zofran Tab) 4 mg PO Q4 PRN PRN Reason: Nausea/Vomiting Trazodone HCl (Desyrel) 50 mg PO HS PRN PRN Reason: Insomnia Last Admin: 02/26/17 21:44 Dose: 50 mg - Labs Labs: 02/25/17 05:30 02/23/17 15:28 PT 13.4 Seconds (9.8-13.1) H 02/14/17 07:40 INR 1.2 (0.9-1.2) 02/14/17 07:40 APTT 24.5 Seconds (25.6-37.1) L 02/14/17 07:40
[2017-02-27] MEDS: Latanoprost 0.005% Opht SOUTION OU SCH (21:07)
[2017-02-28 07:29] LABS: HEMOGLOBIN 8.4 g/dL (12.0-18.0); MEAN CELL VOLUME 73.1 fl (80.0-94.0); MEAN CORPUSCULAR HGB CONC 31.5 g/dL (33.0-37.0); RBC 3.65 Mil/uL (4.40-5.90); RED CELL DISTRIBUTION WIDTH 16.8 % (11.5-14.5); WHITE BLOOD COUNT 10.6 K/uL (4.8-10.8)
[2017-02-28] MEDS: Insulin Lispro (humaLOG) 100 Units/ml Inj SC SCH ×4 (07:30→21:45)
[2017-02-28] MEDS: Enoxaparin 40 mg Syringe SC SCH (08:44)
--- NOTE | 2017-02-28 17:12 | CP.PCM.PN ---
Subjective - Date & Time of Evaluation Date of Evaluation: 02/28/17 Time of Evaluation: 17:12 - Subjective Subjective: Patient seen in the room doing great no pain still anxious, but much more manageable continue current care set for d/c 03/01 Objective - Vital Signs/Intake and Output Vital Signs (last 24 hours): Temp Pulse Resp BP Pulse Ox 97.7 F 84 22 148/78 96 02/28/17 08:23 02/28/17 08:42 02/28/17 08:23 02/28/17 08:43 02/28/17 08:23 - Medications Medications: Current Medications Atorvastatin Calcium (Lipitor) 20 mg PO HS [facility] Last Admin: 02/27/17 21:06 Dose: 20 mg Docusate Sodium (Colace) 100 mg PO BID [facility] Last Admin: 02/28/17 16:59 Dose: 100 mg Enoxaparin Sodium (Lovenox) 40 mg SC DAILY [facility] PRN Reason: Protocol Last Admin: 02/28/17 08:44 Dose: 40 mg Famotidine (Pepcid) 20 mg PO BID [facility] Last Admin: 02/28/17 16:59 Dose: 20 mg Ferrous Sulfate (Feosol) 325 mg PO BID [facility] Last Admin: 02/28/17 16:59 Dose: 325 mg Insulin Human Lispro (Humalog) 0 units SC ACHS [facility] PRN Reason: Protocol Last Admin: 02/28/17 17:00 Dose: Not Given Lactulose (Enulose) 10 gm PO DAILY PRN PRN Reason: Constipation Latanoprost (Xalatan Opht) 1 drop OU HS [facility] Last Admin: 02/27/17 21:07 Dose: 1 drop Lisinopril (Zestril) 20 mg PO DAILY [facility] Last Admin: 02/28/17 08:43 Dose: 20 mg Metformin HCl (Glucophage) 500 mg PO BIDWM [facility] Last Admin: 02/28/17 16:59 Dose: 500 mg Metoprolol Tartrate (Lopressor) 25 mg PO Q12 [facility] Last Admin: 02/28/17 08:42 Dose: 25 mg Ondansetron HCl (Zofran Tab) 4 mg PO Q4 PRN PRN Reason: Nausea/Vomiting Trazodone HCl (Desyrel) 50 mg PO HS PRN PRN Reason: Insomnia Last Admin: 02/27/17 21:08 Dose: 50 mg - Labs Labs: 02/28/17 05:40 02/23/17 15:28 PT 13.4 Seconds (9.8-13.1) H 02/14/17 07:40 INR 1.2 (0.9-1.2) 02/14/17 07:40 APTT 24.5 Seconds (25.6-37.1) L 02/14/17 07:40
[2017-02-28 20:17] VITALS: RESP 20; TEMP 97.8
[2017-02-28] MEDS: Latanoprost 0.005% Opht SOUTION OU SCH (21:44)
[2017-03-01] MEDS: Insulin Lispro (humaLOG) 100 Units/ml Inj SC SCH ×2 (07:30→12:26)
[2017-03-01] MEDS: Enoxaparin 40 mg Syringe SC SCH (08:07)
[2017-03-01 08:18] VITALS: BP 140/78; PULSE 65; O2SAT 97
[2017-03-01] MEDS ORDERED: Lactulose 10 gm/15 ml Syrup PO PRN (09:00)
--- NOTE | 2017-03-01 12:00 | CP.PCM.DIS ---
Provider - Provider Date of Admission: 02/13/17 20:05 Attending physician: Janak Aguayo Time Spent in preparation of Discharge (in minutes): 30 Hospital Course - Lab Results Lab Results: Most Recent Lab Values WBC 10.6 K/uL (4.8-10.8) 02/28/17 05:40 RBC 3.65 Mil/uL (4.40-5.90) L 02/28/17 05:40 Hgb 8.4 g/dL (12.0-18.0) L 02/28/17 05:40 Hct 26.6 % (35.0-51.0) L 02/28/17 05:40 MCV 73.1 fl (80.0-94.0) L 02/28/17 05:40 MCH 23.0 pg (27.0-31.0) L 02/28/17 05:40 MCHC 31.5 g/dL (33.0-37.0) L 02/28/17 05:40 RDW 16.8 % (11.5-14.5) H 02/28/17 05:40 Plt Count 207 K/uL (130-400) 02/28/17 05:40 MPV 9.2 fl (7.2-11.7) 02/14/17 07:40 Neut % (Auto) 77.2 % (50.0-75.0) H 02/14/17 07:40 Lymph % (Auto) 14.9 % (20.0-40.0) L 02/14/17 07:40 [place] % (Auto) 6.5 % (0.0-10.0) 02/14/17 07:40 Eos % (Auto) 0.9 % (0.0-4.0) 02/14/17 07:40 Baso % (Auto) 0.5 % (0.0-2.0) 02/14/17 07:40 Neut # 7.8 K/uL (1.8-7.0) H 02/14/17 07:40 Lymph # 1.5 K/uL (1.0-4.3) 02/14/17 07:40 [place] # 0.7 K/uL (0.0-0.8) 02/14/17 07:40 Eos # 0.1 K/uL (0.0-0.7) 02/14/17 07:40 Baso # 0.1 K/uL (0.0-0.2) 02/14/17 07:40 PT 13.4 Seconds (9.8-13.1) H 02/14/17 07:40 INR 1.2 (0.9-1.2) 02/14/17 07:40 APTT 24.5 Seconds (25.6-37.1) L 02/14/17 07:40 Sodium 139 mmol/l (132-148) 02/23/17 15:28 Potassium 4.5 MMOL/L (3.6-5.0) 02/23/17 15:28 Chloride 103 mmol/L (98-107) 02/23/17 15:28 Carbon Dioxide 28 mmol/L (22-30) 02/23/17 15:28 Anion Gap 13 (10-20) 02/23/17 15:28 BUN 13 mg/dl (9-20) 02/23/17 15:28 Creatinine 0.7 mg/dL (0.8-1.5) L 02/23/17 15:28 Est GFR ( Amer) > 60 02/23/17 15:28 Est GFR (Non-Af Amer) > 60 02/23/17 15:28 POC Glucose (mg/dL) 152 mg/dL (65-110) H 03/01/17 07:01 Random Glucose 93 mg/dL (75-110) 02/23/17 15:28 Hemoglobin A1c 6.4 % (4.2-6.5) 02/22/17 05:30 Calcium 9.1 mg/dL (8.4-10.2) 02/23/17 15:28 Total Bilirubin 0.6 mg/dl (0.2-1.3) 02/14/17 07:40 AST 58 U/L (17-59) 02/14/17 07:40 ALT 50 U/L (21-72) 02/14/17 07:40 Alkaline Phosphatase 76 U/L (38-126) 02/14/17 07:40 Total Protein 5.8 G/DL (6.3-8.2) L 02/14/17 07:40 Albumin 2.5 g/dL (3.5-5.0) L 02/14/17 07:40 Globulin 3.3 gm/dL (2.2-3.9) 02/14/17 07:40 Albumin/Globulin Ratio 0.8 (1.0-2.1) L 02/14/17 07:40 - Hospital Course Hospital Course: 72 yo male with history of colon cancer sent to acute rehab after undergoing elective colostomy reversal on 01/30/2017 at [facility] where surgical intervention was prolonged because of LLQ abscess formation requiring multiple lap washouts and resections. He was sent to acute rehab because of generalized weakness. At present feeling better, participating with PT , still weak Stable to be discharged home. 1. Generalized weakness Continue PT/OT Still feeling weak but improving Participating with PT For potential discharge on 03/01 prostat supplements 2. Colon Cancer s/p partial colectomy and colostomy then colostomy reversal and diverting loop colostomy surgical incision healing well Dressing changes daily need surgical follow up after discharge Oncology follow up 3. DM II controlled Diabetic diet on Metformin 500 mg PO BID accuchek ACHS with low Lispro coverage 4. CAD asymptomatic continue Lipitor resume ASA in March 5. HTN BP controlled continue Metoprolol/Lisinopril 6. [place] CPAP at nights patient could use his own CPAP machine 7. Anemia acute blood loss anemia from surgery Hgb 8 continue Ferrous sulfate 325mg PO BID 8. Adjustment disorder with insomnia on trazodone 9.DVT prophylaxis on Lovenox Discharge Exam - Head Exam Head Exam: ATRAUMATIC, NORMAL INSPECTION, NORMOCEPHALIC - Eye Exam Eye Exam: EOMI, Normal appearance, PERRL - ENT Exam ENT Exam: Mucous Membranes Moist, Normal Oropharynx - Neck Exam Neck exam: Normal Inspection - Respiratory Exam Respiratory Exam: Clear to PA & Lateral, NORMAL BREATHING PATTERN - Cardiovascular Exam Cardiovascular Exam: RRR, +S1, +S2 - GI/Abdominal Exam GI & Abdominal Exam: Normal Bowel Sounds, Soft. absent: Organomegaly, Tenderness - Extremities Exam Extremities exam: normal capillary refill, pedal pulses present - Back Exam Back exam: absent: CVA tenderness (L), CVA tenderness (R) - Neurological Exam Neurological exam: Alert, Oriented x3 - Psychiatric Exam Psychiatric exam: Normal Affect, Normal Mood - Skin Skin Exam: Dry, Warm Discharge Plan - Discharge Medications Prescriptions: Atorvastatin [Lipitor] 20 mg PO HS #30 Ferrous Sulfate [Feosol] 325 mg PO BID #60 tab Latanoprost 0.005% Opht [Xalatan Opht] 1 drop OU HS #1 Lisinopril [Zestril] 20 mg PO DAILY #30 tab Lisinopril [Zestril] 20 mg PO DAILY #30 metFORMIN [glucOPHAGE] 500 mg PO BIDWM #60 tab Metoprolol Tartrate [Lopressor] 25 mg PO Q12 #60 traZODone [Desyrel] 50 mg PO HS PRN #30 PRN Reason: Insomnia - Follow Up Plan Condition: GOOD Disposition: HOME/ ROUTINE Instructions: Colostomy Care (DC), Wound Infection (DC), Depression (DC), Fall Prevention (DC)
== END 2017-03-01 13:42 | disposition home or self-care (01) | DRG 945 ==
PROVIDERS: ADMIT Internal Medicine; ATTEND Internal Medicine
PROC: F07L6ZZ Therapeutic Exercise Treatment of Musculoskeletal System - Lower Back / Lower Extremity (ICD-10-PCS; principal; 2017-02-13)
PROC: F07Z9FZ Gait Training/Functional Ambulation Treatment using Assistive, Adaptive, Supportive or Protective Equipment (ICD-10-PCS; 2017-02-13)
PROC: F08Z2FZ Grooming/Personal Hygiene Treatment using Assistive, Adaptive, Supportive or Protective Equipment (ICD-10-PCS; 2017-02-13)
DX: R53.1 Weakness (principal); C18.9 Malignant neoplasm of colon, unspecified; L89.890 Pressure ulcer of other site, unstageable; E11.9 Type 2 diabetes mellitus without complications; I10 Essential (primary) hypertension; B35.1 Tinea unguium; D62 Acute posthemorrhagic anemia; R53.81 Other malaise; E78.5 Hyperlipidemia, unspecified; E87.6 Hypokalemia; G47.00 Insomnia, unspecified; G47.33 Obstructive sleep apnea (adult) (pediatric); I25.10 Atherosclerotic heart disease of native coronary artery without angina pectoris; Z93.3 Colostomy status; F43.21 Adjustment disorder with depressed mood

== ENCOUNTER 2017-10-01 20:52 | Inpatient (IN) | payer MEDICARE, BC ==
[2017-10-01 20:53] VITALS: BMI 39.4
[2017-10-01] MEDS ORDERED: Morphine 4 MG/ML VIAL IV ONE (21:25)
--- NOTE | 2017-10-01 21:30 | ED PDOC ---
HPI: General Adult Time Seen by Provider: 10/01/17 21:06 Chief Complaint (Nursing): Back Pain Chief Complaint (Provider): fall, left back/rib pain History Per: Patient History/Exam Limitations: no limitations Onset/Duration Of Symptoms: Days (2) Current Symptoms Are (Timing): Still Present Additional Complaint(s): 72 y/o male presents with left-sided back/rib pain x 2 days. Patient states he slipped and fell on stone patio in the rain; notes pain since then, worsening when taking deep breaths and laying flat. Denies head injury, LOC, neck/ midline spinal pain, chest pain, palpitations, abdominal pain, bowel/bladder incontinence. Past Medical History Vital Signs: Last Vital Signs Temp 99.1 F 10/02/17 02:50 Pulse 74 10/02/17 02:50 Resp 28 H 10/02/17 02:50 BP 166/84 H 10/02/17 02:50 Pulse Ox 93 L 10/02/17 02:50 - Medical History PMH: Anemia, Arthritis, CAD, HTN, Sleep Apnea Denies: HIV - Surgical History Other surgeries: colon resection/colostomy bag - Family History Family History: States: No Known Family Hx - Living Arrangements Living Arrangements: With Family - Home Medications Home Medications: Ambulatory Orders Medication Instructions Recorded Atorvastatin [Lipitor] 20 mg PO HS #30 03/01/17 Ferrous Sulfate [Feosol] 325 mg PO BID #60 tab 03/01/17 Latanoprost 0.005% Opht [Xalatan 1 drop OU HS #1 03/01/17 Opht] Lisinopril [Zestril] 20 mg PO DAILY #30 03/01/17 Lisinopril [Zestril] 20 mg PO DAILY #30 tab 03/01/17 Metoprolol Tartrate [Lopressor] 25 mg PO Q12 #60 03/01/17 metFORMIN [glucOPHAGE] 500 mg PO BIDWM #60 tab 03/01/17 traZODone [Desyrel] 50 mg PO HS PRN #30 03/01/17 Bimatoprost [[place] 2.5 ml] 1 drop OP HS 10/02/17 Tamsulosin HCl [Flomax] 0.4 mg PO DAILY 10/02/17 - Allergies Allergies/Adverse Reactions: Allergies Allergy/AdvReac Type Severity Reaction Status Date / Time No Known Allergies Allergy Verified 02/13/17 17:33 Review of Systems ROS Statement: Except As Marked, All Systems Reviewed And Found Negative Musculoskeletal: Positive for: Back Pain (left upper/rib) Physical Exam - Reviewed Nursing Documentation Reviewed: Yes Vital Signs Reviewed: Yes - Physical Exam Appears: Positive for: Well, Non-toxic, No Acute Distress Head Exam: Positive for: ATRAUMATIC, NORMAL INSPECTION, NORMOCEPHALIC Skin: Positive for: Normal Color, Rash (skin abrasions proximal left forearm; no drainage, tenderness. FROM.) Eye Exam: Positive for: Normal appearance ENT: Positive for: Normal ENT Inspection Cardiovascular/Chest: Positive for: Regular Rate, Rhythm. Negative for: Chest Non Tender (tender to palpate left inferior/axillary ribs, left posterior/ inferior ribs. No edema, ecchymosis, flail chest noted) Respiratory: Positive for: Normal Breath Sounds Extremity: Positive for: Normal ROM Neurologic/Psych: Positive for: Alert, Oriented - Laboratory Results Result Diagrams: 10/02/17 00:24 10/02/17 02:30 - ECG ECG: Positive for: Viewed By Me (reviewed by ED attending) ECG Rhythm: Positive for: Sinus Rhythm O2 Sat by Pulse Oximetry: 92 - Progress ED Course And Treament: IV morphine, chest/Left ribs xray EXAM: XR Left Ribs and AP Chest, 3 or More Views CLINICAL HISTORY: 72 years old, male; Injury or trauma; Fall; Initial encounter; Rib area, left side; Blunt trauma; Additional info: Fall, left rib pain, SOB TECHNIQUE: Frontal and oblique views of the left ribs and frontal view of the chest. COMPARISON: No relevant prior studies available. FINDINGS: Lungs: Subsegmental atelectasis/scarring within lung bases. Pleural space: Small LEFT pleural effusion. No definite pneumothorax. Heart: Mild cardiomegaly. Mediastinum: Atherosclerosis of thoracic aorta. Bones/joints: Displaced fractures left seventh, eighth, ninth, tenth ribs, acute. Fractures left fourth, fifth, sixth ribs, age indeterminate. Degenerative changes of spine. Tubes, lines and devices: Leads overlying chest. IMPRESSION: 1. Left rib fractures. 2. Incidental/non-acute findings are described above. On re-eval, patient states pain improved, as long as he is not moving, otherwise states he is very uncomfortable. Case discussed with ED attending Dr. Hinton, will admit for pain control. Case discussed with Dr. Tracey, medical service on-call, for admission. Incentive spirometer given with instructions/demonstration on use by respiratory therapist Disposition - Clinical Impression Clinical Impression: Ribs, multiple fractures - Patient ED Disposition Is Patient to be Admitted: Yes - Disposition Disposition Time: 23:52 Condition: FAIR
[2017-10-01] MEDS ORDERED: Morphine 4 MG/ML VIAL ONE (21:37)
--- NOTE | 2017-10-01 23:28 | RAD ---
EXAM: XR Left Ribs and AP Chest, 3 or More Views CLINICAL HISTORY: 72 years old, male; Injury or trauma; Fall; Initial encounter; Rib area, left side; Blunt trauma; Additional info: Fall, left rib pain, SOB TECHNIQUE: Frontal and oblique views of the left ribs and frontal view of the chest. COMPARISON: No relevant prior studies available. FINDINGS: Lungs: Subsegmental atelectasis/scarring within lung bases. Pleural space: Small LEFT pleural effusion. No definite pneumothorax. Heart: Mild cardiomegaly. Mediastinum: Atherosclerosis of thoracic aorta. Bones/joints: Displaced fractures left seventh, eighth, ninth, tenth ribs, acute. Fractures left fourth, fifth, sixth ribs, age indeterminate. Degenerative changes of spine. Tubes, lines and devices: Leads overlying chest. IMPRESSION: 1. Left rib fractures. 2. Incidental/non-acute findings are described above.
[2017-10-02 00:32] LABS: BASO % 0.3 % (0.0-2.0); EOS % 0.3 % (0.0-4.0); HEMOGLOBIN 14.2 g/dL (12.0-18.0); LYMPH # 1.2 K/uL (1.0-4.3); LYMPH % 12.1 % (20.0-40.0); MEAN CELL VOLUME 77.4 fl (80.0-94.0); MEAN CORPUSCULAR HEMOGLOBIN 24.8 pg (27.0-31.0); MEAN CORPUSCULAR HGB CONC 32.1 g/dL (33.0-37.0); MEAN PLATELET VOLUME 9.6 fl (7.2-11.7); MONO # 0.8 K/uL (0.0-0.8); MONO % 8.4 % (0.0-10.0); NEUT # 7.7 K/uL (1.8-7.0); NEUT % 78.9 % (50.0-75.0); RBC 5.73 Mil/uL (4.40-5.90); WHITE BLOOD COUNT 9.8 K/uL (4.8-10.8)
[2017-10-02] MEDS ORDERED: Morphine 4 MG/ML VIAL IV ONE (00:45)
[2017-10-02 03:07] LABS: BLOOD UREA NITROGEN 8 mg/dl (9-20); GFR AFRICAN-AMERICAN > 60; GFR NON-AFRICAN AMERICAN > 60
[2017-10-02 03:08] LABS: ALBUMIN 4.2 g/dL (3.5-5.0); CALCIUM 9.9 mg/dL (8.4-10.2)
[2017-10-02 03:09] LABS: ALB/GLOB RATIO 1.1 (1.0-2.1); ALT/SGPT 20 U/L (21-72); AST/SGOT 19 U/L (17-59)
[2017-10-02] MEDS: Insulin Lispro (humaLOG) 100 Units/ml Inj SC SCH ×4 (06:42→22:19)
[2017-10-02] MEDS: Morphine 4 MG/ML VIAL IVP PRN ×4 (08:18→23:12)
[2017-10-02] MEDS: Enoxaparin 40 mg Syringe SC SCH (08:21)
[2017-10-02] MEDS: Pantoprazole 40 mg EC Tab PO SCH (08:22)
[2017-10-02] MEDS ORDERED: guaiFENesin DM 200 mg-20 mg/10 ml UD PO PRN (09:24)
[2017-10-02] MEDS ORDERED: Albuterol-Ipratrop 3 mg / 0.5 (3 ml) UD INH STA (09:36)
[2017-10-02] MEDS ORDERED: Albuterol-Ipratrop 3 mg / 0.5 (3 ml) UD INH PRN (16:53)
--- NOTE | 2017-10-02 18:13 | CP.PCM.HP ---
History of Present Illness - History of Present Illness History of Present Illness: Cc: Left sided ribs/back pain 72 year old male with a pmhx of HTN, high cholesterol, DM and colon ca with colostomy who presented to the ED with c/o of left sided ribs and back pain following a fall 3 days ago. Pt states that he slipped and fell on his stone patio. He reports sharp pain to his left side aggravated by movement and relieved by rest with a 8/10 in severity. Denies LOC, headache or dizziness. Reports chest pain on the left side when he inhales, denies palpitations, sob, fever or chills. Cxr of the ribs demonstrates multiple left ribs fractures from the fourth to the tenth ribs. The patient was still in pain after being medicated in the ED hence was admitted to the telemetry unit for further observation. Present on Admission - Present on Admission Any Indicators Present on Admission: No Review of Systems - Review of Systems All systems: reviewed and no additional remarkable complaints except (as stated) - Constitutional Constitutional: As Per HPI - Cardiovascular Cardiovascular: As Per HPI - Respiratory Respiratory: As Per HPI Additional comments: pain with inhalation - Musculoskeletal Musculoskeletal: Back Pain (ribs pain on left side) Past Patient History - Infectious Disease Hx of Infectious Diseases: None - Past Medical History & Family History Past Medical History?: Yes - Past Social History Smoking Status: Never Smoked - CARDIAC Hx Cardiac Disorders: Yes Hx Hypercholesterolemia: Yes Hx Hypertension: Yes - PULMONARY Hx Respiratory Disorders: Yes Hx Sleep Apnea: Yes - NEUROLOGICAL Hx Neurological Disorder: No - HEENT Hx HEENT Problems: Yes Hx Glaucoma: Yes Other/Comment: uses eyeglasses for reading - RENAL Hx Chronic Kidney Disease: Yes Other/Comment: Hx FLORENCIA - ENDOCRINE/METABOLIC Hx Endocrine Disorders: Yes (colon ca, colostomy, hernia) Hx Diabetes Mellitus Type 2: Yes - HEMATOLOGICAL/ONCOLOGICAL Hx Blood Disorders: No Hx AIDS: No Hx Human Immunodeficiency Virus (HIV): No - INTEGUMENTARY Hx Dermatological Problems: No - MUSCULOSKELETAL/RHEUMATOLOGICAL Hx Musculoskeletal Disorders: Yes Hx Falls: Yes - GASTROINTESTINAL Hx Gastrointestinal Disorders: Yes Hx Bowel Surgery: Yes (s/p Partial colectomy) Hx Colostomy: Yes Other/Comment: colon ca. hernia - GENITOURINARY/GYNECOLOGICAL Hx Genitourinary Disorders: No - PSYCHIATRIC Hx Psychophysiologic Disorder: No Hx Substance Use: No - SURGICAL HISTORY Hx Surgeries: Yes Hx Arthroscopy: Yes (x2 knees) Hx Herniorrhaphy: Yes Other/Comment: 01/30/17: Ex-Lap: take down of splenic flexure, lysis. of adhesions, partial colectomy, colostomy. reversal failed, colostomy, audrey of. thrombosed hemorrhoid. 02/03/17: Ex-Lap: washout & drainage, SBR, take. down of colorectal anastomosis with. resection, TAC (left in discontinuity @. distal ileum and rectum. 02/06/17: Ex-Lap: washout, loop colostomy. takedown , splenic injury repair, SB anas-. tomosis, pelvic abscess washout, colon. resection, appendectomy, rectal stump. repair, end colostomy, TAC. 02/09/17: Ex-Lap: washout, abd closure with. retention sutures. (02/10/17: Extubated) . (02/13/17: Right Jugular TLC D/C) - ANESTHESIA Hx Anesthesia: Yes Hx Anesthesia Reactions: Yes (Post-op Delirium) Hx Malignant Hyperthermia: No Meds Allergies/Adverse Reactions: Allergies Allergy/AdvReac Type Severity Reaction Status Date / Time No Known Allergies Allergy Verified 02/13/17 17:33 Physical Exam - Constitutional Appears: Well, Non-toxic (appears in pain) - Head Exam Head Exam: ATRAUMATIC, NORMOCEPHALIC - Eye Exam Eye Exam: EOMI, Normal appearance, PERRL Pupil Exam: NORMAL ACCOMODATION - ENT Exam ENT Exam: Mucous Membranes Moist - Neck Exam Neck exam: Positive for: Full Rom, Normal Inspection - Respiratory Exam Respiratory Exam: Clear to Auscultation Bilateral, NORMAL BREATHING PATTERN - Cardiovascular Exam Cardiovascular Exam: REGULAR RHYTHM, +S1, +S2 - GI/Abdominal Exam GI & Abdominal Exam: Normal Bowel Sounds, Soft Additional comments: colostomy - Rectal Exam Rectal Exam: Deferred - Extremities Exam Extremities exam: Positive for: full ROM, normal inspection - Back Exam Back exam: NORMAL INSPECTION - Neurological Exam Neurological exam: Alert, Oriented x3 - Psychiatric Exam Psychiatric exam: Normal Affect, Normal Mood - Skin Skin Exam: Dry, Normal Color, Warm Results - Vital Signs Recent Vital Signs: Last Vital Signs Temp 98.4 F 10/02/17 15:28 Pulse 84 10/02/17 15:28 Resp 20 02/27/18 15:28 BP 163/83 H 10/02/17 15:28 Pulse Ox 95 10/02/17 15:28 - Labs Result Diagrams: 10/02/17 00:24 10/02/17 02:30 Labs: Laboratory Results - last 24 hr 10/02/17 10/02/17 10/02/17 00:24 02:30 05:35 WBC 9.8 RBC 5.73 Hgb 14.2 D Hct 44.3 MCV 77.4 L D MCH 24.8 L MCHC 32.1 L RDW 17.0 H Plt Count 154 MPV 9.6 Neut % (Auto) 78.9 H Lymph % (Auto) 12.1 L [place] % (Auto) 8.4 Eos % (Auto) 0.3 Baso % (Auto) 0.3 Neut # (Auto) 7.7 H Lymph # (Auto) 1.2 [place] # (Auto) 0.8 Eos # (Auto) 0.0 Baso # (Auto) 0.0 Sodium 140 Potassium 4.0 Chloride 103 Carbon Dioxide 27 Anion Gap 14 BUN 8 L Creatinine 0.6 L Est GFR ( Amer) > 60 Est GFR (Non-Af Amer) > 60 POC Glucose (mg/dL) 123 H Random Glucose 133 H Calcium 9.9 Total Bilirubin 1.0 AST 19 ALT 20 L D Alkaline Phosphatase 78 Total Protein 8.0 Albumin 4.2 Globulin 3.8 Albumin/Globulin Ratio 1.1 10/02/17 10/02/17 10:23 15:47 WBC RBC Hgb Hct MCV MCH MCHC RDW Plt Count MPV Neut % (Auto) Lymph % (Auto) [place] % (Auto) Eos % (Auto) Baso % (Auto) Neut # (Auto) Lymph # (Auto) [place] # (Auto) Eos # (Auto) Baso # (Auto) Sodium Potassium Chloride Carbon Dioxide Anion Gap BUN Creatinine Est GFR ( Amer) Est GFR (Non-Af Amer) POC Glucose (mg/dL) 177 H 178 H Random Glucose Calcium Total Bilirubin AST ALT Alkaline Phosphatase Total Protein Albumin Globulin Albumin/Globulin Ratio - EKG Data EKG comments: Normal sinus rhythm Normal ECG - Imaging and Cardiology Chest x-ray Additional comment: Radiology RIBS AND CHEST LT Exam Date: 10/01/17 This imaging exam was performed at [facility] EXAM: XR Left Ribs and AP Chest, 3 or More Views CLINICAL HISTORY: 72 years old, male; Injury or trauma; Fall; Initial encounter; Rib area, left side; Blunt trauma; Additional info: Fall, left rib pain, SOB TECHNIQUE: Frontal and oblique views of the left ribs and frontal view of the chest. COMPARISON: No relevant prior studies available. FINDINGS: Lungs: Subsegmental atelectasis/scarring within lung bases. Pleural space: Small LEFT pleural effusion. No definite pneumothorax. Heart: Mild cardiomegaly. Mediastinum: Atherosclerosis of thoracic aorta. Bones/joints: Displaced fractures left seventh, eighth, ninth, tenth ribs, acute. Fractures left fourth, fifth, sixth ribs, age indeterminate. Degenerative changes of spine. Tubes, lines and devices: Leads overlying chest. IMPRESSION: 1. Left rib fractures. 2. Incidental/non-acute findings are described above. Assessment & Plan (1) Ribs, multiple fractures Assessment and Plan: Pain control orthopedic consult Deep breathing exercises, IS PT DVT prophylaxis Status: Acute Priority: High (2) Hypertension Assessment and Plan: on medications Status: Chronic Priority: Medium (3) Hypercholesterolemia Assessment and Plan: on medications Status: Chronic Priority: Low (4) Diabetes mellitus Assessment and Plan: on medications Insulin sliding scale Status: Chronic Priority: Low (5) Colon cancer Assessment and Plan: Colostomy care Status: Chronic Priority: Low
[2017-10-02] MEDS: Albuterol-Ipratrop 3 mg / 0.5 (3 ml) UD INH SCH (19:08)
[2017-10-02] MEDS ORDERED: Latanoprost 0.005% Opht SOUTION OU SCH (22:00)
[2017-10-02] MEDS: EYE OU SCH (22:21)
[2017-10-02] MEDS: LUMIGAN 0.01% OU SCH (22:21)
[2017-10-03] MEDS: Albuterol-Ipratrop 3 mg / 0.5 (3 ml) UD INH SCH ×4 (00:59→19:57)
[2017-10-03] MEDS: Morphine 4 MG/ML VIAL IVP PRN ×2 (05:17→19:24)
[2017-10-03] MEDS: Insulin Lispro (humaLOG) 100 Units/ml Inj SC SCH ×4 (07:30→22:59)
[2017-10-03] MEDS: Bacitracin OINT 15GM TOP SCH ×2 (08:57→17:52)
[2017-10-03] MEDS: Enoxaparin 40 mg Syringe SC SCH (08:59)
[2017-10-03] MEDS: Pantoprazole 40 mg EC Tab PO SCH (09:00)
[2017-10-03] MEDS ORDERED: Pneumococcal 23-Valent Vaccine IM ONE (09:00)
--- NOTE | 2017-10-03 12:42 | CP.PCM.CON ---
History of Present Illness - History of Present Illness History of Present Illness: Patient is a 72 y/o male who presented to the [facility] ER with complaints of left sided chest pain. On 09/29/17 he explains slipping on his stone patio and falling onto his left side injuring his left forearm and left chest. The pain in his left chest progressively worsened over the next few days prompting emergency evaluation. His pain is sharp in quality and rated a 8/10 on the pain scale. The pain is located at the left side of his chest. He states that the pain is constant and worsened with deep breathing and sudden movement. It is alleviated with rest. It is associated with SOB due to pain. He denies any dizziness or LOC at before and after the injury. He also denies N/V/D/ dysuria/melena/headache. Dr. Melchor was consulted for orthopedic evaluation. Review of Systems - Review of Systems All systems: reviewed and no additional remarkable complaints except Review of Systems: as per HPI Past Patient History - Past Medical History & Family History Past Medical History?: Yes Past Family History: Reviewed and not pertinent - Past Social History Smoking Status: Never Smoked Chewing Tobacco Use: No Cigar Use: No Alcohol: < 2 Drinks/Day Drugs: Denies - CARDIAC Hx Cardiac Disorders: Yes Hx Hypercholesterolemia: Yes Hx Hypertension: Yes - PULMONARY Hx Respiratory Disorders: Yes Hx Sleep Apnea: Yes - NEUROLOGICAL Hx Neurological Disorder: No - HEENT Hx HEENT Problems: Yes Hx Glaucoma: Yes Other/Comment: uses eyeglasses for reading - RENAL Hx Chronic Kidney Disease: Yes Other/Comment: Hx FLORENCIA - ENDOCRINE/METABOLIC Hx Endocrine Disorders: Yes (colon ca, colostomy, hernia) Hx Diabetes Mellitus Type 2: Yes - HEMATOLOGICAL/ONCOLOGICAL Hx Blood Disorders: No Hx AIDS: No Hx Human Immunodeficiency Virus (HIV): No - INTEGUMENTARY Hx Dermatological Problems: No - MUSCULOSKELETAL/RHEUMATOLOGICAL Hx Musculoskeletal Disorders: Yes Hx Falls: Yes - GASTROINTESTINAL Hx Gastrointestinal Disorders: Yes Hx Bowel Surgery: Yes (s/p Partial colectomy) Hx Colostomy: Yes Other/Comment: colon ca. hernia - GENITOURINARY/GYNECOLOGICAL Hx Genitourinary Disorders: No - PSYCHIATRIC Hx Psychophysiologic Disorder: No Hx Substance Use: No - SURGICAL HISTORY Hx Surgeries: Yes Hx Arthroscopy: Yes (x2 knees) Hx Herniorrhaphy: Yes Other/Comment: 01/30/17: Ex-Lap: take down of splenic flexure, lysis. of adhesions, partial colectomy, colostomy. reversal failed, colostomy, audrey of. thrombosed hemorrhoid. 02/03/17: Ex-Lap: washout & drainage, SBR, take. down of colorectal anastomosis with. resection, TAC (left in discontinuity @. distal ileum and rectum. 02/06/17: Ex-Lap: washout, loop colostomy. takedown , splenic injury repair, SB anas-. tomosis, pelvic abscess washout, colon. resection, appendectomy, rectal stump. repair, end colostomy, TAC. 02/09/17: Ex-Lap: washout, abd closure with. retention sutures. (02/10/17: Extubated) . (02/13/17: Right Jugular TLC D/C) - ANESTHESIA Hx Anesthesia: Yes Hx Anesthesia Reactions: Yes (Post-op Delirium) Hx Malignant Hyperthermia: No Meds Allergies/Adverse Reactions: Allergies Allergy/AdvReac Type Severity Reaction Status Date / Time No Known Allergies Allergy Verified 02/13/17 17:33 - Medications Medications: Current Medications Acetaminophen (Tylenol 325mg Tab) 650 mg PO Q6 PRN PRN Reason: Pain, Mild (1-3) Albuterol/Ipratropium (Duoneb 3 Mg/0.5 Mg (3 Ml) Ud) 3 ml INH RQ6 [facility] Last Admin: 10/03/17 07:48 Dose: 3 ml Atorvastatin Calcium (Lipitor) 20 mg PO HS [facility] Last Admin: 10/02/17 21:07 Dose: 20 mg Bacitracin (Bacitracin Oint) 1 applic TOP BID [facility] Last Admin: 10/03/17 08:57 Dose: 1 applic Docusate Sodium (Colace) 100 mg PO DAILY [facility] Last Admin: 10/03/17 10:34 Dose: 100 mg Enoxaparin Sodium (Lovenox) 40 mg SC DAILY [facility] PRN Reason: Protocol Last Admin: 10/03/17 08:59 Dose: 40 mg Guaifenesin/Dextromethorphan (Robitussin Dm) 10 ml PO Q6 PRN PRN Reason: Cough Home Med (Patient's Own Medication) 1 unit OU HS [facility] Last Admin: 10/02/17 22:21 Dose: 1 unit Insulin Human Lispro (Humalog) 0 units SC ACHS [facility] PRN Reason: Protocol Last Admin: 10/03/17 07:30 Dose: Not Given Ketorolac Tromethamine (Toradol) 15 mg IVP Q6 PRN PRN Reason: Pain, moderate (4-7) Lactulose (Enulose) 10 gm PO BID PRN PRN Reason: Constipation Lisinopril (Zestril) 20 mg PO DAILY [facility] Last Admin: 10/03/17 09:00 Dose: 20 mg Metformin HCl (Glucophage) 500 mg PO BIDWM [facility] Last Admin: 10/03/17 08:58 Dose: 500 mg Morphine Sulfate (Morphine) 2 mg IVP Q4 PRN PRN Reason: Pain, severe (8-10) Last Admin: 10/03/17 05:17 Dose: 2 mg Pantoprazole Sodium (Protonix Ec Tab) 40 mg PO DAILY [facility] Last Admin: 10/03/17 09:00 Dose: 40 mg Tamsulosin HCl (Flomax) 0.4 mg PO DAILY [facility] Last Admin: 10/03/17 08:58 Dose: 0.4 mg Trazodone HCl (Desyrel) 50 mg PO HS PRN PRN Reason: Insomnia Physical Exam - Constitutional Appears: No Acute Distress - Eye Exam Eye Exam: Normal appearance - ENT Exam ENT Exam: Mucous Membranes Moist - Neck Exam Neck exam: Positive for: Normal Inspection - Respiratory Exam Respiratory Exam: NORMAL BREATHING PATTERN Additional comments: General Left sided, mid axillary tenderness. no wounds, mild swelling. intact sensation. - Expanded Upper Extremities Exam Left Forearm Wrist exam: abrasion, full ROM, tenderness. absent: erythema Neuro motor exam: finger 2-5 abduction intact, thumb abduction, thumb IP flexion intact, thumb opposition intact, wrist extension intact Neurosensory exam: median nerve intact, radial nerve intact, ulnar nerve intact Vascular exam: radial pulse Results - Vital Signs Recent Vital Signs: Last Vital Signs Temp 98.8 F 10/03/17 12:00 Pulse 72 10/03/17 12:00 Resp 18 10/03/17 12:00 BP 159/76 H 10/03/17 12:00 Pulse Ox 95 10/03/17 12:00 - Labs Result Diagrams: 10/02/17 00:24 10/02/17 02:30 Labs: Laboratory Results - last 24 hr 10/02/17 10/02/17 10/02/17 10:23 15:47 20:51 POC Glucose (mg/dL) 177 H 178 H 121 H 10/03/17 10/03/17 05:20 10:43 POC Glucose (mg/dL) 96 220 H - Imaging and Cardiology Chest x-ray Status: Image reviewed by me, Report reviewed by me Additional comment: Frontal and oblique views of the left ribs and frontal view of the chest. COMPARISON: No relevant prior studies available. FINDINGS: Lungs: Subsegmental atelectasis/scarring within lung bases. Pleural space: Small LEFT pleural effusion. No definite pneumothorax. Heart: Mild cardiomegaly. Mediastinum: Atherosclerosis of thoracic aorta. Bones/joints: Displaced fractures left seventh, eighth, ninth, tenth ribs, acute. Fractures left fourth, fifth, sixth ribs, age indeterminate. Degenerative changes of spine. Tubes, lines and devices: Leads overlying chest. IMPRESSION: 1. Left rib fractures. 2. Incidental/non-acute findings are described above. Dictated By: Cuba Freeman MD Dictated Date/Time: 10/01/172326 Signed By: Cuba Freeman MD Date Signed: [id number] Transcribed By: JAS Transcribe Date/Time : 10/01/17 Assessment & Plan (1) Ribs, multiple fractures Assessment and Plan: Patient is a 72 y/o male with left sided 7-10 rib fractures. -will treat conservatively -pain control -deep breathing exercises and incentive yoseph -ice to affected area -clear from orthopedic standpoint for d/c -consult appreciated -Case and plan discussed in agreement with Dr. Melchor Status: Acute
[2017-10-03 20:48] VITALS: RESP 18
[2017-10-03] MEDS ORDERED: Latanoprost 0.005% Opht SOUTION OU SCH (22:00)
[2017-10-03] MEDS: LUMIGAN 0.01% OU SCH (22:00)
[2017-10-03] MEDS: EYE OU SCH (22:00)
--- NOTE | 2017-10-03 23:45 | CP.PCM.PN ---
Subjective - Date & Time of Evaluation Date of Evaluation: 10/03/17 Time of Evaluation: 17:15 - Subjective Subjective: Sitting in bed, reports not feeling too well. Was unable to get out of bed by himself without the help of his friend Denies headache, dizziness, cp, sob, fever or chills Objective - Vital Signs/Intake and Output Vital Signs (last 24 hours): Temp Pulse Resp BP Pulse Ox 98.4 F 78 18 150/75 97 10/03/17 20:48 10/03/17 21:52 10/03/17 20:48 10/03/17 21:52 10/03/17 20:48 - Medications Medications: Current Medications Acetaminophen (Tylenol 325mg Tab) 650 mg PO Q6 PRN PRN Reason: Pain, Mild (1-3) Albuterol/Ipratropium (Duoneb 3 Mg/0.5 Mg (3 Ml) Ud) 3 ml INH RQ6 [facility] Last Admin: 10/03/17 19:57 Dose: 3 ml Atorvastatin Calcium (Lipitor) 20 mg PO [facility] Last Admin: 10/03/17 21:18 Dose: 20 mg Bacitracin (Bacitracin Oint) 1 applic TOP BID [facility] Last Admin: 10/03/17 17:52 Dose: 1 applic Docusate Sodium (Colace) 100 mg PO DAILY [facility] Last Admin: 10/03/17 10:34 Dose: 100 mg Enoxaparin Sodium (Lovenox) 40 mg SC DAILY [facility] PRN Reason: Protocol Last Admin: 10/03/17 08:59 Dose: 40 mg Guaifenesin/Dextromethorphan (Robitussin Dm) 10 ml PO Q6 PRN PRN Reason: Cough Home Med (Patient's Own Medication) 1 unit OU HS [facility] Last Admin: 10/02/17 22:21 Dose: 1 unit Insulin Human Lispro (Humalog) 0 units SC ACHS [facility] PRN Reason: Protocol Last Admin: 10/03/17 22:59 Dose: Not Given Ketorolac Tromethamine (Toradol) 15 mg IVP Q6 PRN PRN Reason: Pain, moderate (4-7) Lactulose (Enulose) 10 gm PO BID PRN PRN Reason: Constipation Latanoprost (Xalatan Opht) 1 drop OU [facility] Last Admin: 10/03/17 21:19 Dose: 1 drop Lisinopril (Zestril) 20 mg PO DAILY [facility] Last Admin: 10/03/17 09:00 Dose: 20 mg Metformin HCl (Glucophage) 500 mg PO BIDWM [facility] Last Admin: 10/03/17 17:55 Dose: 500 mg Morphine Sulfate (Morphine) 2 mg IVP Q4 PRN PRN Reason: Pain, severe (8-10) Last Admin: 10/03/17 19:24 Dose: 2 mg Pantoprazole Sodium (Protonix Ec Tab) 40 mg PO DAILY [facility] Last Admin: 10/03/17 09:00 Dose: 40 mg Tamsulosin HCl (Flomax) 0.4 mg PO DAILY [facility] Last Admin: 10/03/17 08:58 Dose: 0.4 mg Trazodone HCl (Desyrel) 50 mg PO HS PRN PRN Reason: Insomnia - Labs Labs: 10/02/17 00:24 10/02/17 02:30 - Constitutional Appears: Well, No Acute Distress - Head Exam Head Exam: ATRAUMATIC, NORMOCEPHALIC - Neck Exam Neck Exam: Full ROM - Respiratory Exam Respiratory Exam: Clear to Ausculation Bilateral, NORMAL BREATHING PATTERN - Cardiovascular Exam Cardiovascular Exam: REGULAR RHYTHM, +S1, +S2 - GI/Abdominal Exam GI & Abdominal Exam: Soft, Normal Bowel Sounds - Neurological Exam Neurological Exam: Alert, Oriented x3 - Psychiatric Exam Psychiatric exam: Normal Affect, Normal Mood - Skin Skin Exam: Normal Color, Warm Assessment and Plan (1) Ribs, multiple fractures Assessment & Plan: pain medications breathing exercises, IS ortho consult appreciated PT DVT prophylaxis Status: Acute (2) Colon cancer Assessment & Plan: colostomy care Status: Chronic (3) Diabetes mellitus Assessment & Plan: on medications Status: Chronic (4) Hypercholesterolemia Assessment & Plan: on medications Status: Chronic (5) Hypertension Assessment & Plan: on medications Status: Chronic
[2017-10-04] MEDS: Albuterol-Ipratrop 3 mg / 0.5 (3 ml) UD INH SCH ×4 (01:08→19:48)
[2017-10-04] MEDS: Lactulose 10 gm/15 ml Syrup PO PRN ×2 (01:29→08:31)
[2017-10-04] MEDS: Morphine 4 MG/ML VIAL IVP PRN ×3 (01:29→21:44)
[2017-10-04] MEDS: LUMIGAN 0.01% OU SCH ×2 (03:20→21:47)
[2017-10-04] MEDS: EYE OU SCH ×2 (03:20→21:47)
[2017-10-04] MEDS: Bacitracin OINT 15GM TOP SCH ×2 (08:29→16:23)
[2017-10-04] MEDS: Pantoprazole 40 mg EC Tab PO SCH (08:30)
[2017-10-04] MEDS: Enoxaparin 40 mg Syringe SC SCH (08:33)
[2017-10-04] MEDS: Insulin Lispro (humaLOG) 100 Units/ml Inj SC SCH ×4 (08:35→22:00)
--- NOTE | 2017-10-04 12:20 | CT ---
PROCEDURE: CT Chest without contrast HISTORY: f/u rib fx COMPARISON: Chest radiograph 10/01/2017. TECHNIQUE: Contiguous axial images were obtained through the chest without intravenous contrast enhancement. Sagittal and coronal reconstructions were performed. Radiation dose (DLP): 703.98 mGy-cm. This CT exam was performed using one or more of the following dose reduction techniques: Automated exposure control, adjustment of the mA and/or kV according to patient size, and/or use of iterative reconstruction technique. FINDINGS: LUNGS: Compression atelectasis left upper and lower lobes with underlying infiltrate not favored but not completely excluded. Limited right basilar atelectasis identified. Central airways remarkable only for web like density at the inferior trachea extending into the right mainstem bronchus suspicious for phlegm. MEDIASTINUM: Unremarkable thoracic aorta. No aneurysm. Normal sized heart. Extensive coronary artery atherosclerosis noted. Main pulmonary artery measures 3.2 cm and is borderline for potential pulmonary artery hypertension. No vascular congestion. No lymphadenopathy. PLEURA: A moderate left pleural effusions identified exerting compression atelectasis in the left lower lobe and a portion of the dependent left upper lobe as well. No right pleural effusion. No pericardial effusion. BONES: Comminuted left 4th rib fracture and possible nondisplaced left 5th rib fracture, involving posterior segments of both these ribs. UPPER ABDOMEN: Grossly unremarkable. OTHER FINDINGS: None. IMPRESSION: 1. Moderate left pleural effusion is compression atelectasis at the left upper lower lobe dependent portions with underlying infiltrate is not favored but not completely excluded. No pleural or pericardial effusion. 2. Likely limited phlegm inferior trachea and right mainstem bronchus. 3. Borderline for pulmonary artery hypertension.
[2017-10-04] MEDS: Bisacodyl 5mg EC Tab PO SCH (15:17)
[2017-10-04] MEDS: Lactulose 10 gm/15 ml Syrup PO SCH (16:23)
--- NOTE | 2017-10-04 22:05 | CP.PCM.PN ---
Subjective - Date & Time of Evaluation Date of Evaluation: 10/04/17 Time of Evaluation: 19:00 - Subjective Subjective: Has pain to left ribs, pain medication helping. Denies cp, sob, fever or chills. Objective - Vital Signs/Intake and Output Vital Signs (last 24 hours): Temp Pulse Resp BP Pulse Ox 98.3 F 75 18 147/72 96 10/04/17 21:13 10/04/17 21:13 10/04/17 21:13 10/04/17 21:13 10/04/17 21:13 - Medications Medications: Current Medications Acetaminophen (Tylenol 325mg Tab) 650 mg PO Q6 PRN PRN Reason: Pain, Mild (1-3) Albuterol/Ipratropium (Duoneb 3 Mg/0.5 Mg (3 Ml) Ud) 3 ml INH RQ6 [facility] Last Admin: 10/04/17 19:48 Dose: 3 ml Atorvastatin Calcium (Lipitor) 20 mg PO HS [facility] Last Admin: 10/04/17 21:47 Dose: 20 mg Bacitracin (Bacitracin Oint) 1 applic TOP BID [facility] Last Admin: 10/04/17 16:23 Dose: 1 applic Bisacodyl (Dulcolax) 5 mg PO DAILY [facility] Last Admin: 10/04/17 15:17 Dose: 5 mg Docusate Sodium (Colace) 100 mg PO DAILY [facility] Last Admin: 10/04/17 08:30 Dose: 100 mg Enoxaparin Sodium (Lovenox) 40 mg SC DAILY [facility] PRN Reason: Protocol Last Admin: 10/04/17 08:33 Dose: 40 mg Guaifenesin/Dextromethorphan (Robitussin Dm) 10 ml PO Q6 PRN PRN Reason: Cough Home Med (Patient's Own Medication) 1 unit OU HS [facility] Last Admin: 10/04/17 21:47 Dose: 1 unit Insulin Human Lispro (Humalog) 0 units SC ACHS [facility] PRN Reason: Protocol Last Admin: 10/04/17 16:25 Dose: 1 unit Ketorolac Tromethamine (Toradol) 15 mg IVP Q6 PRN PRN Reason: Pain, moderate (4-7) Lactulose (Enulose) 10 gm PO BID [facility] Last Admin: 10/04/17 16:23 Dose: 10 gm Lisinopril (Zestril) 20 mg PO DAILY [facility] Last Admin: 10/04/17 08:34 Dose: 20 mg Metformin HCl (Glucophage) 500 mg PO BIDWM [facility] Last Admin: 10/04/17 16:23 Dose: 500 mg Morphine Sulfate (Morphine) 2 mg IVP Q4 PRN PRN Reason: Pain, severe (8-10) Last Admin: 10/04/17 21:44 Dose: 2 mg Pantoprazole Sodium (Protonix Ec Tab) 40 mg PO DAILY [facility] Last Admin: 10/04/17 08:30 Dose: 40 mg Tamsulosin HCl (Flomax) 0.4 mg PO DAILY [facility] Last Admin: 10/04/17 08:29 Dose: 0.4 mg Trazodone HCl (Desyrel) 50 mg PO HS PRN PRN Reason: Insomnia - Labs Labs: 10/02/17 00:24 10/02/17 02:30 - Constitutional Appears: Well, No Acute Distress - Head Exam Head Exam: ATRAUMATIC, NORMOCEPHALIC - Respiratory Exam Respiratory Exam: Clear to Ausculation Bilateral, NORMAL BREATHING PATTERN - Cardiovascular Exam Cardiovascular Exam: REGULAR RHYTHM, +S1, +S2 - GI/Abdominal Exam GI & Abdominal Exam: Soft, Normal Bowel Sounds - Neurological Exam Neurological Exam: Alert, Oriented x3 - Psychiatric Exam Psychiatric exam: Normal Affect, Normal Mood - Skin Skin Exam: Normal Color, Warm Assessment and Plan (1) Ribs, multiple fractures Assessment & Plan: pain management breathing exercises/IS PT d/c planning Status: Acute (2) Colon cancer Assessment & Plan: colostomy care Status: Chronic (3) Diabetes mellitus Assessment & Plan: on medications Status: Chronic (4) Hypercholesterolemia Assessment & Plan: on medications Status: Chronic (5) Hypertension Assessment & Plan: on medications Status: Chronic
[2017-10-05] MEDS: Albuterol-Ipratrop 3 mg / 0.5 (3 ml) UD INH SCH ×3 (01:00→13:47)
[2017-10-05] MEDS: Morphine 4 MG/ML VIAL IVP PRN (05:01)
[2017-10-05] MEDS: Enoxaparin 40 mg Syringe SC SCH (08:03)
[2017-10-05] MEDS: Pantoprazole 40 mg EC Tab PO SCH (08:04)
[2017-10-05] MEDS: Bacitracin OINT 15GM TOP SCH (08:07)
[2017-10-05] MEDS: Lactulose 10 gm/15 ml Syrup PO SCH (08:07)
[2017-10-05] MEDS: Insulin Lispro (humaLOG) 100 Units/ml Inj SC SCH ×2 (08:08→12:25)
[2017-10-05] MEDS: Bisacodyl 5mg EC Tab PO SCH (08:09)
[2017-10-05 12:38] VITALS: BP 143/84; PULSE 67; TEMP 98.1; O2SAT 93
--- NOTE | 2017-10-05 18:27 | CARD ---
APPROVED REPORT EKG Measurement Heart [id number] CO [id number] <Conclusion> Normal sinus rhythm Normal ECG
--- NOTE | 2017-10-05 18:57 | CP.PCM.DIS ---
Provider - Provider Date of Admission: 10/01/17 23:52 Attending physician: Ahmet Tracey MD Time Spent in preparation of Discharge (in minutes): 25 Diagnosis - Discharge Diagnosis (1) Ribs, multiple fractures Status: Acute Priority: High (2) Colon cancer Status: Chronic Priority: Low (3) Diabetes mellitus Status: Chronic Priority: Low (4) Hypercholesterolemia Status: Chronic Priority: Low (5) Hypertension Status: Chronic Priority: Medium Hospital Course - Lab Results Lab Results: Most Recent Lab Values WBC 9.8 K/uL (4.8-10.8) 10/02/17 00:24 RBC 5.73 Mil/uL (4.40-5.90) 10/02/17 00:24 Hgb 14.2 g/dL (12.0-18.0) D 10/02/17 00:24 Hct 44.3 % (35.0-51.0) 10/02/17 00:24 MCV 77.4 fl (80.0-94.0) L D 10/02/17 00:24 MCH 24.8 pg (27.0-31.0) L 10/02/17 00:24 MCHC 32.1 g/dL (33.0-37.0) L 10/02/17 00:24 RDW 17.0 % (11.5-14.5) H 10/02/17 00:24 Plt Count 154 K/uL (130-400) 10/02/17 00:24 MPV 9.6 fl (7.2-11.7) 10/02/17 00:24 Neut % (Auto) 78.9 % (50.0-75.0) H 10/02/17 00:24 Lymph % (Auto) 12.1 % (20.0-40.0) L 10/02/17 00:24 Gilmer % (Auto) 8.4 % (0.0-10.0) 10/02/17 00:24 Eos % (Auto) 0.3 % (0.0-4.0) 10/02/17 00:24 Baso % (Auto) 0.3 % (0.0-2.0) 10/02/17 00:24 Neut # (Auto) 7.7 K/uL (1.8-7.0) H 10/02/17 00:24 Lymph # (Auto) 1.2 K/uL (1.0-4.3) 10/02/17 00:24 Gilmer # (Auto) 0.8 K/uL (0.0-0.8) 10/02/17 00:24 Eos # (Auto) 0.0 K/uL (0.0-0.7) 10/02/17 00:24 Baso # (Auto) 0.0 K/uL (0.0-0.2) 10/02/17 00:24 Sodium 140 mmol/l (132-148) 10/02/17 02:30 Potassium 4.0 MMOL/L (3.6-5.0) 10/02/17 02:30 Chloride 103 mmol/L (98-107) 10/02/17 02:30 Carbon Dioxide 27 mmol/L (22-30) 10/02/17 02:30 Anion Gap 14 (10-20) 10/02/17 02:30 BUN 8 mg/dl (9-20) L 10/02/17 02:30 Creatinine 0.6 mg/dl (0.8-1.5) L 10/02/17 02:30 Est GFR ( Amer) > 60 10/02/17 02:30 Est GFR (Non-Af Amer) > 60 10/02/17 02:30 POC Glucose (mg/dL) 203 mg/dL (65-110) H 10/05/17 11:12 Random Glucose 133 mg/dL (75-110) H 10/02/17 02:30 Calcium 9.9 mg/dL (8.4-10.2) 10/02/17 02:30 Total Bilirubin 1.0 mg/dl (0.2-1.3) 10/02/17 02:30 AST 19 U/L (17-59) 10/02/17 02:30 ALT 20 U/L (21-72) L D 10/02/17 02:30 Alkaline Phosphatase 78 U/L (38-126) 10/02/17 02:30 Total Protein 8.0 G/DL (6.3-8.2) 10/02/17 02:30 Albumin 4.2 g/dL (3.5-5.0) 10/02/17 02:30 Globulin 3.8 gm/dL (2.2-3.9) 10/02/17 02:30 Albumin/Globulin Ratio 1.1 (1.0-2.1) 10/02/17 02:30 - Hospital Course Hospital Course: A 72 year old male with a pmhx of HTN, high cholesterol, DM and colon ca with colostomy who sustained a mechanical fall on his stone patio. The patient fell on his left side and sustained multiple left ribs fractures. The patient had significant left ribs pain and difficulty taking in breaths thus was admitted for further observation and pain management. The patient has been unable to move without help and has been unable to perform simple ADLs by himself. The patient was thus discharged to TCU for further rehabilitation. Discharge Exam - Head Exam Head Exam: ATRAUMATIC, NORMOCEPHALIC - Respiratory Exam Respiratory Exam: Clear to PA & Lateral, NORMAL BREATHING PATTERN - Cardiovascular Exam Cardiovascular Exam: REGULAR RHYTHM, +S1, +S2 - GI/Abdominal Exam GI & Abdominal Exam: Normal Bowel Sounds - Neurological Exam Neurological exam: Alert, Oriented x3 - Psychiatric Exam Psychiatric exam: Normal Affect, Normal Mood - Skin Skin Exam: Normal Color, Warm Discharge Plan - Discharge Medications Prescriptions: Docusate [Colace] 100 mg PO BID #60 cap Lactulose 20 gm PO DAILY PRN #10 solution PRN Reason: Constipation oxyCODONE/Acetaminophen [Percocet 5/325 mg Tab] 1 ea PO Q4 #30 tab - Follow Up Plan Condition: STABLE Disposition: TRANSITIONAL CARE UNIT Instructions: Rib Fracture (DC), Chest Pain (DC) Referrals: George Melchor III, MD [Staff Provider] - Stevenson Crouch MD [Family Provider] -
== END 2017-10-05 14:05 | DRG 184 ==
LOC: H.ER 20:52 → OBSVTOIN 23:52 → H.ERHOLD 23:52 → UNDOADMOB 23:52 → H.TEL 10-02 03:44
PROVIDERS: ADMIT Internal Medicine; ATTEND Internal Medicine
PROC: 3E0F7GC Introduction of Other Therapeutic Substance into Respiratory Tract, Via Natural or Artificial Opening (ICD-10-PCS; 2017-10-02)
PROC: 3E0234Z Introduction of Serum, Toxoid and Vaccine into Muscle, Percutaneous Approach (ICD-10-PCS; principal; 2017-10-03)
DX: S22.42XA Multiple fractures of ribs, left side, initial encounter for closed fracture (principal); C18.9 Malignant neoplasm of colon, unspecified; E11.22 Type 2 diabetes mellitus with diabetic chronic kidney disease; E78.00 Pure hypercholesterolemia, unspecified; G47.30 Sleep apnea, unspecified; D64.9 Anemia, unspecified; H40.9 Unspecified glaucoma; I12.9 Hypertensive chronic kidney disease with stage 1 through stage 4 chronic kidney disease, or unspecified chronic kidney disease; I25.10 Atherosclerotic heart disease of native coronary artery without angina pectoris; N18.9 Chronic kidney disease, unspecified; W01.0XXA Fall on same level from slipping, tripping and stumbling without subsequent striking against object, initial encounter; Z90.49 Acquired absence of other specified parts of digestive tract; Z93.3 Colostomy status; M19.90 Unspecified osteoarthritis, unspecified site; Z79.84 Long term (current) use of oral hypoglycemic drugs; Z79.899 Other long term (current) drug therapy; M54.9 Dorsalgia, unspecified; Z23 Encounter for immunization

== ENCOUNTER 2017-10-05 11:16 | Inpatient (IN) | payer OTHER, BC ==
[2017-10-05 14:09] VITALS: BMI 33.0
[2017-10-05] MEDS ORDERED: guaiFENesin DM 200 mg-20 mg/10 ml UD PO PRN (15:29)
[2017-10-05] MEDS: Oxycodone/Acetaminophen 5/325 mg Tab PO PRN (17:06)
[2017-10-05] MEDS: Lactulose 10 gm/15 ml Syrup PO SCH (17:08)
[2017-10-05] MEDS: Bacitracin 500 Units/gm Oint Foilpak UD TOP SCH (17:08)
[2017-10-05 17:53] VITALS: RESP 20
[2017-10-05] MEDS ORDERED: Latanoprost 0.005% Opht SOUTION OU SCH (22:00)
[2017-10-05] MEDS: Insulin Lispro (humaLOG) 100 Units/ml Inj SC SCH (22:25)
[2017-10-05] MEDS: LUMIGAN 0.01% OU SCH (22:26)
[2017-10-06] MEDS: Albuterol-Ipratrop 3 mg / 0.5 (3 ml) UD INH SCH ×4 (01:07→19:31)
[2017-10-06] MEDS: Oxycodone/Acetaminophen 5/325 mg Tab PO PRN ×3 (03:10→22:12)
[2017-10-06] MEDS: Insulin Lispro (humaLOG) 100 Units/ml Inj SC SCH ×4 (07:58→21:28)
[2017-10-06] MEDS: Bacitracin 500 Units/gm Oint Foilpak UD TOP SCH ×2 (08:33→16:49)
[2017-10-06] MEDS: Bisacodyl 5mg EC Tab PO SCH (08:34)
[2017-10-06] MEDS: Lactulose 10 gm/15 ml Syrup PO SCH ×2 (08:35→16:50)
[2017-10-06] MEDS: Enoxaparin 40 mg Syringe SC SCH (08:36)
[2017-10-06] MEDS: Pantoprazole 40 mg EC Tab PO SCH (08:37)
[2017-10-06] MEDS: LUMIGAN 0.01% OU SCH (21:25)
--- NOTE | 2017-10-06 23:37 | CP.PCM.HP ---
Past Patient History - Infectious Disease Hx of Infectious Diseases: None - Past Medical History & Family History Past Medical History?: Yes - Past Social History Smoking Status: Never Smoked - CARDIAC Hx Cardiac Disorders: Yes Hx Hypercholesterolemia: Yes Hx Hypertension: Yes - PULMONARY Hx Respiratory Disorders: Yes Hx Sleep Apnea: Yes - NEUROLOGICAL Hx Neurological Disorder: No - HEENT Hx HEENT Problems: Yes Hx Glaucoma: Yes Other/Comment: uses eyeglasses for reading - RENAL Hx Chronic Kidney Disease: Yes Other/Comment: Hx FLORENCIA - ENDOCRINE/METABOLIC Hx Endocrine Disorders: Yes (colon ca, colostomy, hernia) Hx Diabetes Mellitus Type 2: Yes - HEMATOLOGICAL/ONCOLOGICAL Hx Blood Disorders: No Hx AIDS: No Hx Anemia: Yes Hx Human Immunodeficiency Virus (HIV): No - INTEGUMENTARY Hx Dermatological Problems: No - MUSCULOSKELETAL/RHEUMATOLOGICAL Hx Musculoskeletal Disorders: Yes Hx Arthritis: Yes Hx Falls: Yes - GASTROINTESTINAL Hx Gastrointestinal Disorders: Yes Hx Bowel Surgery: Yes (s/p Partial colectomy) Hx Colostomy: Yes Other/Comment: colon ca. hernia - GENITOURINARY/GYNECOLOGICAL Hx Genitourinary Disorders: No - PSYCHIATRIC Hx Psychophysiologic Disorder: No Hx Substance Use: No - SURGICAL HISTORY Hx Surgeries: Yes Hx Arthroscopy: Yes (x2 knees) Hx Herniorrhaphy: Yes Other/Comment: 01/30/17: Ex-Lap: take down of splenic flexure, lysis. of adhesions, partial colectomy, colostomy. reversal failed, colostomy, audrey of. thrombosed hemorrhoid. 02/03/17: Ex-Lap: washout & drainage, SBR, take. down of colorectal anastomosis with. resection, TAC (left in discontinuity @. distal ileum and rectum. 02/06/17: Ex-Lap: washout, loop colostomy. takedown , splenic injury repair, SB anas-. tomosis, pelvic abscess washout, colon. resection, appendectomy, rectal stump. repair, end colostomy, TAC. 02/09/17: Ex-Lap: washout, abd closure with. retention sutures. (02/10/17: Extubated) . (02/13/17: Right Jugular TLC D/C) - ANESTHESIA Hx Anesthesia: Yes Hx Anesthesia Reactions: Yes (Post-op Delirium) Hx Malignant Hyperthermia: No Meds Allergies/Adverse Reactions: Allergies Allergy/AdvReac Type Severity Reaction Status Date / Time No Known Allergies Allergy Verified 10/05/17 14:09 Results - Vital Signs Recent Vital Signs: Last Vital Signs Temp 97.3 F L 10/06/17 21:01 Pulse 84 10/06/17 21:01 Resp 20 10/06/17 21:01 BP 133/69 10/06/17 21:01 Pulse Ox 93 L 10/06/17 21:01 - Labs Labs: Laboratory Results - last 24 hr 10/06/17 10/06/17 10/06/17 05:17 10:52 16:29 POC Glucose (mg/dL) 136 H 254 H 170 H 10/06/17 21:19 POC Glucose (mg/dL) 154 H
[2017-10-07] MEDS: Albuterol-Ipratrop 3 mg / 0.5 (3 ml) UD INH SCH ×4 (01:14→20:20)
[2017-10-07] MEDS: Insulin Lispro (humaLOG) 100 Units/ml Inj SC SCH ×4 (08:24→21:46)
[2017-10-07] MEDS: Bacitracin 500 Units/gm Oint Foilpak UD TOP SCH ×2 (08:29→17:40)
[2017-10-07] MEDS: Pantoprazole 40 mg EC Tab PO SCH (08:30)
[2017-10-07] MEDS: Bisacodyl 5mg EC Tab PO SCH (08:30)
[2017-10-07] MEDS: Lactulose 10 gm/15 ml Syrup PO SCH ×2 (08:31→17:39)
[2017-10-07] MEDS: Enoxaparin 40 mg Syringe SC SCH (08:31)
[2017-10-07] MEDS: Oxycodone/Acetaminophen 5/325 mg Tab PO PRN ×2 (08:36→19:06)
[2017-10-07] MEDS: LUMIGAN 0.01% OU SCH (21:47)
--- NOTE | 2017-10-07 22:09 | CP.PCM.PN ---
Subjective - Date & Time of Evaluation Date of Evaluation: 10/07/17 Time of Evaluation: 19:50 Objective - Vital Signs/Intake and Output Vital Signs (last 24 hours): Temp Pulse Resp BP Pulse Ox 97.1 F L 75 20 146/68 95 10/07/17 21:38 10/07/17 21:38 10/07/17 21:38 10/07/17 21:38 10/07/17 21:38 - Medications Medications: Current Medications Albuterol/Ipratropium (Duoneb 3 Mg/0.5 Mg (3 Ml) Ud) 3 ml INH RQ6 [facility] Last Admin: 10/07/17 20:20 Dose: 3 ml Atorvastatin Calcium (Lipitor) 20 mg PO HS [facility] Last Admin: 10/07/17 21:45 Dose: 20 mg Bacitracin (Bacitracin) 1 ea TOP BID [facility] Last Admin: 10/07/17 17:40 Dose: 1 ea Bisacodyl (Dulcolax) 5 mg PO DAILY [facility] Last Admin: 10/07/17 08:30 Dose: 5 mg Docusate Sodium (Colace) 100 mg PO DAILY [facility] Last Admin: 10/07/17 08:30 Dose: 100 mg Enoxaparin Sodium (Lovenox) 40 mg SC DAILY [facility] PRN Reason: Protocol Last Admin: 10/07/17 08:31 Dose: 40 mg Guaifenesin/Dextromethorphan (Robitussin Dm) 10 ml PO Q6 PRN PRN Reason: Cough Last Admin: 10/06/17 22:14 Dose: 10 ml Home Med (Patient's Own Medication) 1 unit OU HS [facility] Last Admin: 10/07/17 21:47 Dose: 1 unit Insulin Human Lispro (Humalog) 0 units SC ACHS [facility] PRN Reason: Protocol Last Admin: 10/07/17 21:46 Dose: Not Given Lactulose (Enulose) 10 gm PO BID [facility] Last Admin: 10/07/17 17:39 Dose: Not Given Lisinopril (Zestril) 20 mg PO DAILY [facility] Last Admin: 10/07/17 08:31 Dose: 20 mg Metformin HCl (Glucophage) 500 mg PO BIDWM [facility] Last Admin: 10/07/17 17:39 Dose: 500 mg Morphine Sulfate (Morphine) 2 mg IVP Q6 PRN PRN Reason: Pain, severe (8-10) Oxycodone/Acetaminophen (Percocet 5/325 Mg Tab) 2 tab PO Q6 PRN PRN Reason: Pain, moderate (4-7) Stop: 10/08/17 15:45 Last Admin: 10/07/17 19:06 Dose: 2 tab Pantoprazole Sodium (Protonix Ec Tab) 40 mg PO DAILY [facility] Last Admin: 10/07/17 08:30 Dose: 40 mg Tamsulosin HCl (Flomax) 0.4 mg PO DAILY [facility] Last Admin: 10/07/17 08:30 Dose: 0.4 mg Trazodone HCl (Desyrel) 50 mg PO HS PRN PRN Reason: Insomnia
[2017-10-08] MEDS: Albuterol-Ipratrop 3 mg / 0.5 (3 ml) UD INH SCH ×4 (01:09→19:38)
[2017-10-08] MEDS: Oxycodone/Acetaminophen 5/325 mg Tab PO PRN ×2 (04:44→13:17)
[2017-10-08] MEDS: Insulin Lispro (humaLOG) 100 Units/ml Inj SC SCH ×4 (07:37→21:13)
[2017-10-08] MEDS: Pantoprazole 40 mg EC Tab PO SCH (08:53)
[2017-10-08] MEDS: Lactulose 10 gm/15 ml Syrup PO SCH ×2 (08:53→16:57)
[2017-10-08] MEDS: Bisacodyl 5mg EC Tab PO SCH (08:54)
[2017-10-08] MEDS: Enoxaparin 40 mg Syringe SC SCH (08:54)
[2017-10-08] MEDS: Bacitracin 500 Units/gm Oint Foilpak UD TOP SCH ×2 (09:00→17:07)
[2017-10-08] MEDS: LUMIGAN 0.01% OU SCH (21:28)
--- NOTE | 2017-10-08 23:22 | CP.PCM.PN ---
Subjective - Date & Time of Evaluation Date of Evaluation: 10/08/17 Objective - Vital Signs/Intake and Output Vital Signs (last 24 hours): Temp Pulse Resp BP Pulse Ox 97.7 F 84 20 123/55 L 96 10/08/17 22:00 10/08/17 22:00 10/08/17 22:00 10/08/17 22:00 10/08/17 22:00 - Medications Medications: Current Medications Albuterol/Ipratropium (Duoneb 3 Mg/0.5 Mg (3 Ml) Ud) 3 ml INH RQ6 [facility] Last Admin: 10/08/17 19:38 Dose: 3 ml Atorvastatin Calcium (Lipitor) 20 mg PO HS [facility] Last Admin: 10/08/17 21:28 Dose: 20 mg Bacitracin (Bacitracin) 1 ea TOP BID [facility] Last Admin: 10/08/17 17:07 Dose: 1 ea Bisacodyl (Dulcolax) 5 mg PO DAILY [facility] Last Admin: 10/08/17 08:54 Dose: 5 mg Docusate Sodium (Colace) 100 mg PO DAILY [facility] Last Admin: 10/08/17 08:54 Dose: 100 mg Enoxaparin Sodium (Lovenox) 40 mg SC DAILY [facility] PRN Reason: Protocol Last Admin: 10/08/17 08:54 Dose: 40 mg Guaifenesin/Dextromethorphan (Robitussin Dm) 10 ml PO Q6 PRN PRN Reason: Cough Last Admin: 10/06/17 22:14 Dose: 10 ml Home Med (Patient's Own Medication) 1 unit OU HS [facility] Last Admin: 10/08/17 21:28 Dose: 1 unit Insulin Human Lispro (Humalog) 0 units SC ACHS [facility] PRN Reason: Protocol Last Admin: 10/08/17 21:13 Dose: Not Given Lactulose (Enulose) 10 gm PO BID [facility] Last Admin: 10/08/17 16:57 Dose: 10 gm Lisinopril (Zestril) 20 mg PO DAILY [facility] Last Admin: 10/08/17 08:54 Dose: 20 mg Metformin HCl (Glucophage) 500 mg PO BIDWM [facility] Last Admin: 10/08/17 16:57 Dose: 500 mg Oxycodone/Acetaminophen (Percocet 5/325 Mg Tab) 2 tab PO Q6 PRN PRN Reason: Pain, moderate (4-7) Stop: 10/11/17 16:48 Pantoprazole Sodium (Protonix Ec Tab) 40 mg PO DAILY [facility] Last Admin: 10/08/17 08:53 Dose: 40 mg Tamsulosin HCl (Flomax) 0.4 mg PO DAILY [facility] Last Admin: 10/08/17 08:54 Dose: 0.4 mg Trazodone HCl (Desyrel) 50 mg PO HS PRN PRN Reason: Insomnia
[2017-10-09] MEDS: Oxycodone/Acetaminophen 5/325 mg Tab PO PRN ×3 (00:23→20:26)
[2017-10-09] MEDS: Albuterol-Ipratrop 3 mg / 0.5 (3 ml) UD INH SCH ×4 (01:10→19:27)
[2017-10-09] MEDS: Lactulose 10 gm/15 ml Syrup PO SCH ×2 (08:21→17:17)
[2017-10-09] MEDS: Insulin Lispro (humaLOG) 100 Units/ml Inj SC SCH ×3 (08:21→17:18)
[2017-10-09] MEDS: Pantoprazole 40 mg EC Tab PO SCH (08:21)
[2017-10-09] MEDS: Bacitracin 500 Units/gm Oint Foilpak UD TOP SCH ×2 (08:23→17:18)
[2017-10-09] MEDS: Bisacodyl 5mg EC Tab PO SCH (08:23)
[2017-10-09] MEDS: Enoxaparin 40 mg Syringe SC SCH (08:23)
--- NOTE | 2017-10-09 12:54 | CP.PCM.CON ---
History of Present Illness - History of Present Illness History of Present Illness: 72 year old male with left rib discpmfort no other complaints at present Review of Systems - Musculoskeletal Musculoskeletal: Muscle Weakness, Other Additional comments: rib discomfort Past Patient History - Infectious Disease Hx of Infectious Diseases: None - Past Medical History & Family History Past Medical History?: Yes - Past Social History Smoking Status: Never Smoked - CARDIAC Hx Cardiac Disorders: Yes Hx Hypercholesterolemia: Yes Hx Hypertension: Yes - PULMONARY Hx Respiratory Disorders: Yes Hx Sleep Apnea: Yes - NEUROLOGICAL Hx Neurological Disorder: No - HEENT Hx HEENT Problems: Yes Hx Glaucoma: Yes Other/Comment: uses eyeglasses for reading - RENAL Hx Chronic Kidney Disease: Yes Other/Comment: Hx FLORENCIA - ENDOCRINE/METABOLIC Hx Endocrine Disorders: Yes (colon ca, colostomy, hernia) Hx Diabetes Mellitus Type 2: Yes - HEMATOLOGICAL/ONCOLOGICAL Hx Blood Disorders: No Hx AIDS: No Hx Anemia: Yes Hx Human Immunodeficiency Virus (HIV): No - INTEGUMENTARY Hx Dermatological Problems: No - MUSCULOSKELETAL/RHEUMATOLOGICAL Hx Musculoskeletal Disorders: Yes Hx Arthritis: Yes Hx Falls: Yes - GASTROINTESTINAL Hx Gastrointestinal Disorders: Yes Hx Bowel Surgery: Yes (s/p Partial colectomy) Hx Colostomy: Yes Other/Comment: colon ca. hernia - GENITOURINARY/GYNECOLOGICAL Hx Genitourinary Disorders: No - PSYCHIATRIC Hx Psychophysiologic Disorder: No Hx Substance Use: No - SURGICAL HISTORY Hx Surgeries: Yes Hx Arthroscopy: Yes (x2 knees) Hx Herniorrhaphy: Yes Other/Comment: 01/30/17: Ex-Lap: take down of splenic flexure, lysis. of adhesions, partial colectomy, colostomy. reversal failed, colostomy, audrey of. thrombosed hemorrhoid. 02/03/17: Ex-Lap: washout & drainage, SBR, take. down of colorectal anastomosis with. resection, TAC (left in discontinuity @. distal ileum and rectum. 02/06/17: Ex-Lap: washout, loop colostomy. takedown , splenic injury repair, SB anas-. tomosis, pelvic abscess washout, colon. resection, appendectomy, rectal stump. repair, end colostomy, TAC. 02/09/17: Ex-Lap: washout, abd closure with. retention sutures. (02/10/17: Extubated) . (02/13/17: Right Jugular TLC D/C) - ANESTHESIA Hx Anesthesia: Yes Hx Anesthesia Reactions: Yes (Post-op Delirium) Hx Malignant Hyperthermia: No Meds Allergies/Adverse Reactions: Allergies Allergy/AdvReac Type Severity Reaction Status Date / Time No Known Allergies Allergy Verified 10/05/17 14:09 - Medications Medications: Current Medications Albuterol/Ipratropium (Duoneb 3 Mg/0.5 Mg (3 Ml) Ud) 3 ml INH RQ6 [facility] Last Admin: 10/09/17 07:52 Dose: 3 ml Atorvastatin Calcium (Lipitor) 20 mg PO HS [facility] Last Admin: 10/08/17 21:28 Dose: 20 mg Bacitracin (Bacitracin) 1 ea TOP BID [facility] Last Admin: 10/09/17 08:23 Dose: 1 ea Bisacodyl (Dulcolax) 5 mg PO DAILY [facility] Last Admin: 10/09/17 08:23 Dose: 5 mg Docusate Sodium (Colace) 100 mg PO DAILY [facility] Last Admin: 10/09/17 08:23 Dose: 100 mg Guaifenesin/Dextromethorphan (Robitussin Dm) 10 ml PO Q6 PRN PRN Reason: Cough Last Admin: 10/06/17 22:14 Dose: 10 ml Home Med (Patient's Own Medication) 1 unit OU HS [facility] Last Admin: 10/08/17 21:28 Dose: 1 unit Insulin Human Lispro (Humalog) 0 units SC [facility] PRN Reason: Protocol Last Admin: 10/09/17 12:21 Dose: 1 u Lactulose (Enulose) 10 gm PO BID [facility] Last Admin: 10/09/17 08:21 Dose: 10 gm Lisinopril (Zestril) 20 mg PO DAILY [facility] Last Admin: 10/09/17 08:22 Dose: 20 mg Metformin HCl (Glucophage) 500 mg PO BIDWM [facility] Last Admin: 10/09/17 08:21 Dose: 500 mg Oxycodone/Acetaminophen (Percocet 5/325 Mg Tab) 2 tab PO Q6 PRN PRN Reason: Pain, moderate (4-7) Stop: 10/11/17 16:48 Last Admin: 10/09/17 11:43 Dose: 2 tab Pantoprazole Sodium (Protonix Ec Tab) 40 mg PO DAILY [facility] Last Admin: 10/09/17 08:21 Dose: 40 mg Tamsulosin HCl (Flomax) 0.4 mg PO DAILY [facility] Last Admin: 10/09/17 08:21 Dose: 0.4 mg Trazodone HCl (Desyrel) 50 mg PO HS PRN PRN Reason: Insomnia Physical Exam - Head Exam Head Exam: ATRAUMATIC, NORMAL INSPECTION, NORMOCEPHALIC - Eye Exam Eye Exam: EOMI, Normal appearance, PERRL Pupil Exam: NORMAL ACCOMODATION, PERRL - ENT Exam ENT Exam: Mucous Membranes Moist, Normal Exam - Neck Exam Neck exam: Positive for: Normal Inspection - Respiratory Exam Respiratory Exam: Clear to Auscultation Bilateral, NORMAL BREATHING PATTERN - Cardiovascular Exam Cardiovascular Exam: REGULAR RHYTHM - Rectal Exam Rectal Exam: NORMAL INSPECTION - Exam External exam: NORMAL EXTERNAL EXAM - Extremities Exam Extremities exam: Positive for: normal inspection - Back Exam Back exam: NORMAL INSPECTION - Neurological Exam Neurological exam: Alert, CN II-XII Intact, Oriented x3, Reflexes Normal Additional comments: left sided rib pain Results - Vital Signs Recent Vital Signs: Last Vital Signs Temp 97.7 F 10/09/17 09:09 Pulse 74 10/09/17 09:09 Resp 20 10/09/17 09:09 BP 153/83 H 10/09/17 09:09 Pulse Ox 99 10/09/17 09:09 - Labs Labs: Laboratory Results - last 24 hr 10/08/17 10/08/17 10/09/17 16:19 20:47 07:14 POC Glucose (mg/dL) 115 H 140 H 93 10/09/17 11:11 POC Glucose (mg/dL) 164 H Assessment & Plan (1) Ribs, multiple fractures Status: Acute Priority: High (2) Colon cancer Status: Chronic Priority: Low (3) Diabetes mellitus Status: Chronic Priority: Low (4) Hypercholesterolemia Status: Chronic Priority: Low (5) Hypertension Status: Chronic Priority: Medium
--- NOTE | 2017-10-09 12:59 | CP.PCM.PN ---
Subjective - Date & Time of Evaluation Date of Evaluation: 10/09/17 Time of Evaluation: 11:00 - Subjective Subjective: patinet with mild rib discomfort Objective - Vital Signs/Intake and Output Vital Signs (last 24 hours): Temp Pulse Resp BP Pulse Ox 97.7 F 74 20 153/83 H 99 10/09/17 09:09 10/09/17 09:09 10/09/17 09:09 10/09/17 09:09 10/09/17 09:09 - Medications Medications: Current Medications Albuterol/Ipratropium (Duoneb 3 Mg/0.5 Mg (3 Ml) Ud) 3 ml INH RQ6 [facility] Last Admin: 10/09/17 07:52 Dose: 3 ml Atorvastatin Calcium (Lipitor) 20 mg PO HS [facility] Last Admin: 10/08/17 21:28 Dose: 20 mg Bacitracin (Bacitracin) 1 ea TOP BID [facility] Last Admin: 10/09/17 08:23 Dose: 1 ea Bisacodyl (Dulcolax) 5 mg PO DAILY [facility] Last Admin: 10/09/17 08:23 Dose: 5 mg Docusate Sodium (Colace) 100 mg PO DAILY [facility] Last Admin: 10/09/17 08:23 Dose: 100 mg Guaifenesin/Dextromethorphan (Robitussin Dm) 10 ml PO Q6 PRN PRN Reason: Cough Last Admin: 10/06/17 22:14 Dose: 10 ml Home Med (Patient's Own Medication) 1 unit OU HS [facility] Last Admin: 10/08/17 21:28 Dose: 1 unit Insulin Human Lispro (Humalog) 0 units SC [facility] PRN Reason: Protocol Last Admin: 10/09/17 12:21 Dose: 1 u Lactulose (Enulose) 10 gm PO BID [facility] Last Admin: 10/09/17 08:21 Dose: 10 gm Lisinopril (Zestril) 20 mg PO DAILY [facility] Last Admin: 10/09/17 08:22 Dose: 20 mg Metformin HCl (Glucophage) 500 mg PO BIDWM [facility] Last Admin: 10/09/17 08:21 Dose: 500 mg Oxycodone/Acetaminophen (Percocet 5/325 Mg Tab) 2 tab PO Q6 PRN PRN Reason: Pain, moderate (4-7) Stop: 10/11/17 16:48 Last Admin: 10/09/17 11:43 Dose: 2 tab Pantoprazole Sodium (Protonix Ec Tab) 40 mg PO DAILY [facility] Last Admin: 10/09/17 08:21 Dose: 40 mg Tamsulosin HCl (Flomax) 0.4 mg PO DAILY [facility] Last Admin: 10/09/17 08:21 Dose: 0.4 mg Trazodone HCl (Desyrel) 50 mg PO HS PRN PRN Reason: Insomnia - Head Exam Head Exam: ATRAUMATIC, NORMAL INSPECTION, NORMOCEPHALIC - Eye Exam Eye Exam: EOMI, Normal appearance, PERRL Pupil Exam: NORMAL ACCOMODATION, PERRL - ENT Exam ENT Exam: Mucous Membranes Moist, Normal Exam - Neck Exam Neck Exam: Full ROM, Normal Inspection. absent: Lymphadenopathy - Respiratory Exam Respiratory Exam: Clear to Ausculation Bilateral, NORMAL BREATHING PATTERN - Cardiovascular Exam Cardiovascular Exam: REGULAR RHYTHM, +S1, +S2. absent: Murmur - GI/Abdominal Exam GI & Abdominal Exam: Soft, Normal Bowel Sounds. absent: Tenderness - Rectal Exam Rectal Exam: NORMAL INSPECTION - Exam External exam: absent: Ecchymosis, Erythema, Lacerations, Lesions, NORMAL EXTERNAL EXAM, Swelling - Extremities Exam Extremities Exam: Full ROM, Normal Capillary Refill, Normal Inspection. absent : Joint Swelling, Pedal Edema - Back Exam Back Exam: NORMAL INSPECTION - Neurological Exam Neuro motor strength exam: Left Upper Extremity: 3, Right Upper Extremity: 4, Left Lower Extremity: 4, Right Lower Extremity: 4 Additional comments: left rib disomfort - Psychiatric Exam Psychiatric exam: Normal Affect, Normal Mood Assessment and Plan (1) Ribs, multiple fractures Assessment & Plan: plan for physical. occupational therapy fo rrange of motion, strenghtening tansfers and gait training Status: Acute (2) Colon cancer Status: Chronic (3) Diabetes mellitus Status: Chronic (4) Hypercholesterolemia Status: Chronic (5) Hypertension Status: Chronic
[2017-10-09] MEDS: LUMIGAN 0.01% OU SCH (21:32)
--- NOTE | 2017-10-09 22:08 | CP.PCM.PN ---
Subjective - Date & Time of Evaluation Date of Evaluation: 10/09/17 Objective - Vital Signs/Intake and Output Vital Signs (last 24 hours): Temp Pulse Resp BP Pulse Ox 97.0 F L 77 20 138/68 96 10/09/17 20:22 10/09/17 20:22 10/09/17 20:22 10/09/17 20:22 10/09/17 20:22 - Medications Medications: Current Medications Albuterol/Ipratropium (Duoneb 3 Mg/0.5 Mg (3 Ml) Ud) 3 ml INH RQ6 [facility] Last Admin: 10/09/17 19:27 Dose: 3 ml Atorvastatin Calcium (Lipitor) 20 mg PO HS [facility] Last Admin: 10/09/17 21:26 Dose: 20 mg Bacitracin (Bacitracin) 1 ea TOP BID [facility] Last Admin: 10/09/17 17:18 Dose: 1 ea Bisacodyl (Dulcolax) 5 mg PO DAILY [facility] Last Admin: 10/09/17 08:23 Dose: 5 mg Docusate Sodium (Colace) 100 mg PO DAILY [facility] Last Admin: 10/09/17 08:23 Dose: 100 mg Guaifenesin/Dextromethorphan (Robitussin Dm) 10 ml PO Q6 PRN PRN Reason: Cough Last Admin: 10/06/17 22:14 Dose: 10 ml Home Med (Patient's Own Medication) 1 unit OU HS [facility] Last Admin: 10/09/17 21:32 Dose: 1 unit Insulin Human Lispro (Humalog) 0 units SC ACHS [facility] PRN Reason: Protocol Last Admin: 10/09/17 17:18 Dose: Not Given Lactulose (Enulose) 10 gm PO BID [facility] Last Admin: 10/09/17 17:17 Dose: 10 gm Lisinopril (Zestril) 20 mg PO DAILY [facility] Last Admin: 10/09/17 08:22 Dose: 20 mg Metformin HCl (Glucophage) 500 mg PO BIDWM [facility] Last Admin: 10/09/17 17:17 Dose: 500 mg Oxycodone/Acetaminophen (Percocet 5/325 Mg Tab) 2 tab PO Q6 PRN PRN Reason: Pain, moderate (4-7) Stop: 10/11/17 16:48 Last Admin: 10/09/17 20:26 Dose: 2 tab Pantoprazole Sodium (Protonix Ec Tab) 40 mg PO DAILY [facility] Last Admin: 10/09/17 08:21 Dose: 40 mg Tamsulosin HCl (Flomax) 0.4 mg PO DAILY [facility] Last Admin: 10/09/17 08:21 Dose: 0.4 mg Trazodone HCl (Desyrel) 50 mg PO HS PRN PRN Reason: Insomnia
[2017-10-10] MEDS: Insulin Lispro (humaLOG) 100 Units/ml Inj SC SCH ×4 (00:45→16:50)
[2017-10-10] MEDS: Albuterol-Ipratrop 3 mg / 0.5 (3 ml) UD INH SCH ×4 (02:07→19:46)
[2017-10-10] MEDS: Lactulose 10 gm/15 ml Syrup PO SCH ×2 (09:02→16:53)
[2017-10-10] MEDS: Bacitracin 500 Units/gm Oint Foilpak UD TOP SCH ×2 (09:02→16:50)
[2017-10-10] MEDS: Pantoprazole 40 mg EC Tab PO SCH (09:03)
[2017-10-10] MEDS: Bisacodyl 5mg EC Tab PO SCH (09:04)
[2017-10-10] MEDS: Oxycodone/Acetaminophen 5/325 mg Tab PO PRN ×2 (10:17→20:50)
[2017-10-10] MEDS: Enoxaparin 40 mg Syringe SC SCH (16:52)
--- NOTE | 2017-10-10 22:47 | CP.PCM.PN ---
Subjective - Date & Time of Evaluation Date of Evaluation: 10/10/17 Objective - Vital Signs/Intake and Output Vital Signs (last 24 hours): Temp Pulse Resp BP Pulse Ox 97.9 F 76 20 131/61 93 L 10/10/17 21:55 10/10/17 21:55 10/10/17 21:55 10/10/17 21:55 10/10/17 21:55 - Medications Medications: Current Medications Albuterol/Ipratropium (Duoneb 3 Mg/0.5 Mg (3 Ml) Ud) 3 ml INH RQ6 [facility] Last Admin: 10/10/17 19:46 Dose: 3 ml Atorvastatin Calcium (Lipitor) 20 mg PO HS [facility] Last Admin: 10/09/17 21:26 Dose: 20 mg Bacitracin (Bacitracin) 1 ea TOP BID [facility] Last Admin: 10/10/17 16:50 Dose: 1 ea Bisacodyl (Dulcolax) 5 mg PO DAILY [facility] Last Admin: 10/10/17 09:04 Dose: 5 mg Docusate Sodium (Colace) 100 mg PO DAILY [facility] Last Admin: 10/10/17 09:04 Dose: 100 mg Enoxaparin Sodium (Lovenox) 40 mg SC DAILY [facility] PRN Reason: Protocol Last Admin: 10/10/17 16:52 Dose: 40 mg Guaifenesin/Dextromethorphan (Robitussin Dm) 10 ml PO Q6 PRN PRN Reason: Cough Last Admin: 10/06/17 22:14 Dose: 10 ml Home Med (Patient's Own Medication) 1 unit OU HS [facility] Last Admin: 10/09/17 21:32 Dose: 1 unit Insulin Human Lispro (Humalog) 0 units SC ACHS [facility] PRN Reason: Protocol Last Admin: 10/10/17 16:50 Dose: 1 u Lactulose (Enulose) 10 gm PO BID [facility] Last Admin: 10/10/17 16:53 Dose: 10 gm Lisinopril (Zestril) 20 mg PO DAILY [facility] Last Admin: 10/10/17 09:02 Dose: 20 mg Metformin HCl (Glucophage) 500 mg PO BIDWM [facility] Last Admin: 10/10/17 16:50 Dose: 500 mg Oxycodone/Acetaminophen (Percocet 5/325 Mg Tab) 2 tab PO Q6 PRN PRN Reason: Pain, moderate (4-7) Stop: 10/11/17 16:48 Last Admin: 10/10/17 20:50 Dose: 2 tab Pantoprazole Sodium (Protonix Ec Tab) 40 mg PO DAILY [facility] Last Admin: 10/10/17 09:03 Dose: 40 mg Tamsulosin HCl (Flomax) 0.4 mg PO DAILY [facility] Last Admin: 10/10/17 09:02 Dose: 0.4 mg Trazodone HCl (Desyrel) 50 mg PO HS PRN PRN Reason: Insomnia
[2017-10-11] MEDS: LUMIGAN 0.01% OU SCH (00:42)
[2017-10-11] MEDS: Insulin Lispro (humaLOG) 100 Units/ml Inj SC SCH ×3 (00:43→11:30)
[2017-10-11] MEDS: Albuterol-Ipratrop 3 mg / 0.5 (3 ml) UD INH SCH ×3 (01:22→13:56)
[2017-10-11 08:20] VITALS: BP 146/80; PULSE 69; TEMP 98.1; O2SAT 95
[2017-10-11] MEDS: Lactulose 10 gm/15 ml Syrup PO SCH (08:24)
[2017-10-11] MEDS: Pantoprazole 40 mg EC Tab PO SCH (08:25)
[2017-10-11] MEDS: Enoxaparin 40 mg Syringe SC SCH (08:25)
[2017-10-11] MEDS: Bisacodyl 5mg EC Tab PO SCH (08:26)
[2017-10-11] MEDS: Bacitracin 500 Units/gm Oint Foilpak UD TOP SCH (08:27)
--- NOTE | 2017-10-11 13:35 | CP.PCM.DIS ---
Provider - Provider Date of Admission: 10/05/17 14:14 Attending physician: Ahmet Tracey MD Time Spent in preparation of Discharge (in minutes): 30 Hospital Course - Lab Results Lab Results: Most Recent Lab Values POC Glucose (mg/dL) 172 mg/dL (65-110) H 10/11/17 10:42 Discharge Exam - Head Exam Head Exam: ATRAUMATIC, NORMAL INSPECTION, NORMOCEPHALIC Discharge Plan - Follow Up Plan Condition: GOOD Disposition: HOME/ ROUTINE Instructions: Rib Fracture (DC)
== END 2017-10-11 14:50 | disposition home or self-care (01) | DRG 560 ==
LOC: H.TCU 14:14
PROVIDERS: ADMIT Internal Medicine; ATTEND Internal Medicine
PROC: F08Z1FZ Dressing Techniques Treatment using Assistive, Adaptive, Supportive or Protective Equipment (ICD-10-PCS; principal; 2017-10-05)
PROC: F08Z4FZ Home Management Treatment using Assistive, Adaptive, Supportive or Protective Equipment (ICD-10-PCS; 2017-10-05)
PROC: F07Z5FZ Bed Mobility Treatment using Assistive, Adaptive, Supportive or Protective Equipment (ICD-10-PCS; 2017-10-05)
PROC: F07Z8FZ Transfer Training Treatment using Assistive, Adaptive, Supportive or Protective Equipment (ICD-10-PCS; 2017-10-05)
PROC: F07Z9ZZ Gait Training/Functional Ambulation Treatment (ICD-10-PCS; 2017-10-05)
PROC: F07L6ZZ Therapeutic Exercise Treatment of Musculoskeletal System - Lower Back / Lower Extremity (ICD-10-PCS; 2017-10-05)
DX: S22.49XD Multiple fractures of ribs, unspecified side, subsequent encounter for fracture with routine healing (principal); C18.9 Malignant neoplasm of colon, unspecified; E11.22 Type 2 diabetes mellitus with diabetic chronic kidney disease; E78.00 Pure hypercholesterolemia, unspecified; X58.XXXD Exposure to other specified factors, subsequent encounter; I12.9 Hypertensive chronic kidney disease with stage 1 through stage 4 chronic kidney disease, or unspecified chronic kidney disease; N18.9 Chronic kidney disease, unspecified; Z93.3 Colostomy status; H40.9 Unspecified glaucoma

== ENCOUNTER 2018-03-29 11:07 | Day surgery (SDC) | payer MEDICARE, BC ==
[2018-03-29 12:33] VITALS: BMI 32.0
[2018-03-29] MEDS ORDERED: Lidocaine 1% 5ml Abboject IV ONE (13:42)
--- NOTE | 2018-03-29 14:14 | CP.SDSHP ---
Same Day Surgery H & P - History Proposed Procedure: R. Thoracentesis Pre-Op Diagnosis: R. Pleural effusion - Allergies Allergies: Allergies No Known Allergies Allergy (Verified 03/29/18 12:37) - Physical Exam Vital Signs: Vital Signs 03/29/18 03/29/18 03/29/18 12:07 12:21 13:41 Temperature 98.4 F 98.1 F Pulse Rate 75 75 70 Respiratory 20 22 Rate Blood Pressure 153/78 H 155/87 H O2 Sat by Pulse 95 Oximetry Short Stay Discharge - Short Stay Discharge Admitting Diagnosis/Reason for Visit: J90 Disposition: HOME/ ROUTINE Referrals: Stevenson Crouch MD [Primary Care Provider] -
--- NOTE | 2018-03-29 14:15 | PCM.SURG1 ---
Surgeon's Initial Post Op Note - Surgeon's Notes Surgeon: Cristian Mess Attendant: None Type of Anesthesia: Local Pre-Operative Diagnosis: Right pleural effusion Operative Findings: Right pleural effusion Post-Operative Diagnosis: Right pleural effusion Operation Performed: R. Thoracentesis Specimen/Specimens Removed: Approx 900cc of clear pale yeloow fluid aspirated. Estimated Blood Loss: EBL {In ML}: 1 Date of Surgery/Procedure: 03/29/18 Time of Surgery/Procedure: 14:10
[2018-03-29 14:52] VITALS: PULSE 68; RESP 18
[2018-03-29 14:53] LABS: BODY FLUID TYPE PLEURAL/THORACENTESI
--- NOTE | 2018-03-29 15:03 | RAD ---
Date of service: 03/29/2018 PROCEDURE: CHEST RADIOGRAPH, 1 VIEW HISTORY: R Thoracentesis COMPARISON: 03/11/2018 FINDINGS: LUNGS: Clear. PLEURA: Increasing right pleural effusion. No pneumothorax CARDIOVASCULAR: Normal. OSSEOUS STRUCTURES: No significant abnormalities. VISUALIZED UPPER ABDOMEN: Normal. OTHER FINDINGS: None. IMPRESSION: Increasing right pleural effusion. No pneumothorax
[2018-03-29 15:18] LABS: GLUCOSE,BODY FLUID 110 mg/dL (NONE ESTABLISHED); TOTAL PROTEIN,BODY FLUID 5.4 g/dL (NONE ESTABLISHED)
[2018-03-29 15:22] VITALS: BP 123/57; TEMP 98.4; O2SAT 96
[2018-03-29 18:17] LABS: BF GROSS APPEARANCE CLOUDY (CLEAR)
[2018-03-29 18:18] LABS: BODY FLUID MONO/MACROPHAGE 32 % (0-0)
== END 2018-03-29 15:30 | disposition home or self-care (01) ==
LOC: H.OPSURG 11:07
PROVIDERS: ATTEND Internal Medicine Pulmonary Disease
DX: J90 Pleural effusion, not elsewhere classified (principal)
CPT/HCPCS: 32555; 71045; 76942; 82945; 83615; 87070; 88104; 88305; 89051; C1729